=== PATIENT | male | born 1950 | race Caucasian/White ===

== ENCOUNTER 2020-11-04 06:48 | Outpatient (CLI) | payer OTHER, SELFPAY ==
--- NOTE | 2020-11-04 07:15 | US_ITS ---
WS: [id number] RENAL ULTRASOUND HISTORY: HYDRONEPHROSIS COMPARISON: 05/04/2019 TECHNIQUE: 2-D and color Doppler imaging of the kidney submitted. Right kidney: 11.1 cm x 4.0 cm x 5.0 cm. Kidney is normal size but there is marked increased echogenicity in the renal pelvis with poor cortic al medullary differentiation. No mass or obstruction. Marked thinning of the renal cortex to 8 mm. Left kidney: 12.5 cm x 4.7 cm x 5.9 cm. Normal size kidney with increased echogenicity. No hydronephrosis or mass. Mild diffuse thinning of t he renal cortex to 9.5 mm. Aorta: Mild atherosclerosis aorta. Urinary Bladder: Normal distention. US/US renal BI* [id number] IMPRESSION: 1. Severe RIGHT chronic medical renal disease with marked cortical atrophy. No obstruction. 2. Mild LEFT chronic medical medical renal disease with mild cortical atrophy. No obstruction.
== END 2020-11-04 06:49 | disposition home or self-care (01) ==
LOC: US 06:49
PROVIDERS: PCP Emergency Medicine Emergency Medical Services; Visit Provider Urology
DX: N13.30 Unspecified hydronephrosis (principal); N18.4 Chronic kidney disease, stage 4 (severe); N26.1 Atrophy of kidney (terminal)
CPT/HCPCS: 76770; 80048; 81003

== ENCOUNTER 2021-12-13 08:10 | Emergency (ER) | payer OTHER, SELFPAY ==
[2021-12-13 08:20] VITALS: BP 150/78; PULSE 64; RESP 18; TEMP 36.5; O2SAT 100; BMI 28.1
--- NOTE | 2021-12-13 08:24 | XRR_ITS ---
PROCEDURE INFORMATION: Exam: XR Left Hand Exam date and time: 12/13/2021 8:24 AM Age: 71 years old Clinical indication: Injury or trauma; Fall; Blunt trauma (contusions or hematomas); Left; Little finger; Additional info: 5ht finger pain, injury TECHNIQUE: Imaging protocol: XR Left hand. Views: 3 or more views. Total images: 3 COMPARISON: No relevant prior studies available. FINDINGS: Bones/joints: Posteriorly dislocated middle phalanx in relation to the proximal phalanx of the 5th digit. No fracture detected. No additional fracture, subluxation, or dislocation detected. Soft tissues: Normal. XR/XR hand LT min 3V* [id number] IMPRESSION: Posteriorly dislocated middle phalanx in relation to the proximal phalanx of the 5th digit.
[2021-12-13 08:34] VITALS: BP 150/78; PULSE 64; RESP 18; O2SAT 100
--- NOTE | 2021-12-13 08:34 | W.ED.EXTPRO ---
HPI - Extremity Problem General: Chief complaint: Extremity Injury, Upper Stated complaint: Possible broken finger, chin injury Time Seen by Provider: 12/13/21 08:18 History of Present Illness: Patient fell on ice this morning sustaining a laceration to his chin and injuring his left pinky finger. Patient denies any loss of consciousness neck pain headache or other injuries. Says he can move his finger but has swelling at the base. Associated symptoms: Deny chest pain, fever(s) or rash Review of Systems Const: Denies: fever(s), chills or body aches Eyes: Denies: eye discomfort ENMT: Denies: throat pain Card: Denies: chest pain Resp: Denies: dyspnea GI: Denies: abdominal pain, nausea or vomiting Musc: Reports: joint pain and joint swelling (Base of left pinky finger) Skin/Breast: Reports: other (Small irregular laceration base of chin from striking the ice today); Denies: rash Neuro: Denies: headache(s) Psych: Denies: depression or suicidal ideation PFS ED PFSH: Medical History (Updated 12/13/21 @ 08:48 by BERONICA Johnson) CKD (chronic kidney disease) Diabetes Gout H/O malignant neoplasm of skin FACE H/O pilonidal cyst Hyperuricemia Hypoglycemia Idiopathic hypersomnia Obstructive sleep apnea Osteoarthritis, multiple sites Retroperitoneal fibrosis Surgical History (Updated 11/04/20 @ 08:24 by Carlito Molina MD) H/O foot surgery BONE SPURS REMOVED BILATERAL FEET S/P appendectomy S/P cataract surgery S/p total knee replacement, bilateral Status post cholecystectomy Family History (Updated 11/04/20 @ 08:13 by Ashley San LPN) Mother , IN HER 70'S No problems noted. Father , AT AGE 92 No problems noted. Social History (Updated 11/04/20 @ 08:14 by Ashley San LPN) Smoking and tobacco status: never smoked Alcohol intake: never Marital status: Current occupational status: retired History of recent travel: No Physical Exam Const: COMMON NORMALS: no acute distress, patient oriented x3 and alert HENMT: COMMON NORMALS: normocephalic and external ears normal HEAD & SCALP: normocephalic EXTERNAL EAR: Yes external ears normal Eye: COMMON NORMALS: EOMs intact bilaterally Neck/C-Spine: COMMON NORMALS: no JVD Resp: COMMON NORMALS: normal respiratory effort and No use of accessory muscles Cardio: COMMON NORMALS: no JVD GI: INSPECTION: Yes normal to inspection Extremity: COMMON NORMALS: normal to inspection and full ROM NARRATIVE EXTREMITY EXAM: Swelling MIP joint left pinky. Patient has full range of motion of the finger Neuro: COMMON NORMALS: patient oriented x3 SENSORIUM/ORIENTATION: Yes alert Psych: COMMON NORMALS: mental status grossly normal Skin: COMMON NORMALS: no rashes or lesions noted GENERAL SKIN EXAM: no rashes or lesions noted OTHER: Laceration to chin approximately half inch long somewhat jagged nonbleeding Procedures Laceration Laceration 1: Site: face Size (cm): 1 Description: irregular and clean Depth: simple, single layer Skin layer closed with: other (Closed with skin adhesive) Orthopedic Joint Reduction Joint #1: Time Out Performed: Yes Side: left Joint Reduction Location: finger Analgesia: none Technique used: direct manipulation Post-reduction neuro exam: intact Post-reduction vascular: intact Post Reduction X-Ray Obtained: No Splint Applied: Yes (Costa tape) Course Vital Signs: Vital signs: Vital Signs Temperature 97.7 F 12/13/21 08:20 Pulse Rate 64 12/13/21 08:34 Respiratory Rate 18 12/13/21 08:34 Blood Pressure 150/78 12/13/21 08:34 Pulse Oximetry 100 12/13/21 08:34 MDM - Extremity (Nontraumatic) Medical Decision Making Laceration and mild dislocation of the left pinky finger. Laceration repaired with glue and left pinky finger MIP joint was reduced with direct manipulation without any difficulty with satisfactory alignment and full range of motion the finger with intact neuro. Discharge Plan Discharge Patient Disposition: Home Clinical Impression: Laceration Dislocation closed, finger Qualifiers: Encounter type: initial encounter Qualified Code(s): S63.259A - Unspecified dislocation of unspecified finger, initial encounter Condition: Stable Prescriptions: No Action allopurinol 100 mg tablet 100 mg PO BID 0RF cetirizine [All Day Allergy (cetirizine)] 10 mg tablet 5 mg PO DAILY PRN0RF chlorhexidine gluconate 0.12 % mouthwash 15 ml buccal DAILY 0RF chlorthalidone 25 mg tablet 25 mg PO DAILY 0RF cholecalciferol (vitamin D3) 50 mcg (2,000 unit) capsule 50 mcg PO DAILY 0RF clonidine HCl 0.3 mg tablet 0.3 mg PO TID 0RF ferrous sulfate 325 mg (65 mg iron) tablet 325 mg PO DAILY 0RF latanoprost (PF) 0.005 % drops 1 drp ophthalmic (eye) DAILY 0RF losartan 100 mg tablet 100 mg PO DAILY 0RF montelukast 10 mg tablet 10 mg PO DAILY 0RF mupirocin 2 % ointment 1 applic topical BID 0RF omeprazole 20 mg capsule,delayed release(DR/EC) 20 mg PO DAILY 0RF potassium chloride 20 mEq tablet extended release 20 meq PO DAILY 0RF pravastatin 20 mg tablet 20 mg PO .1/2 TAB DAILY 0RF triamcinolone acetonide 0.1 % cream 1 applic topical .PRN 0RF acetaminophen 325 mg capsule 325 mg PO QID 0RF phenazopyridine 100 mg tablet 100 mg PO TID PRN0RF amlodipine 5 mg tablet 5 mg PO BID 0RF aspirin 81 mg tablet,delayed release (DR/EC) 81 mg PO DAILY 0RF atenolol 100 mg tablet 100 mg PO .1/2 TAB DAILY 0RF docusate sodium 100 mg capsule 100 mg PO TID 0RF omega-3 fatty acids [Fish Oil Concentrate] 1,000 mg capsule 1,000 mg PO BID 0RF fluticasone propionate [Allergy Relief (fluticasone)] 50 mcg/actuation spray,suspension 2 spray intranasal DAILY 0RF Rx Instructions: administer into each nostril folic acid 1 mg tablet 1 mg PO DAILY 0RF guaifenesin 400 mg tablet 400 mg PO Q4H PRN0RF insulin glargine 100 unit/mL (3 mL) insulin pen 36 unit SUBCUT .HS 0RF sennosides [Evac-U-Gen (sennosides)] 8.6 mg tablet 8.6 mg PO BID 0RF spironolactone 25 mg tablet 25 mg PO DAILY 0RF Discharge Orders: Discharge ED (Routine); Ordered 12/13/21 Ordered By: Mainor Aaron Referrals: Haris Parsons DO [Primary Care Provider] - Discharge Diet: Usual diet Discharge Activity: Increase activity as tolerated Patient Instructions: Skin Adhesive Care (ED), Finger Dislocation (ED) Activity Restrictions/Additional Instructions: Follow instructions given today. If finger becomes more swollen or feels like it is came back out of place please return here or follow-up your primary care provider. 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
[2021-12-13] MEDS: tetanus-dipt-pertussis 0.5 mL SDV IM (08:41)
[2021-12-13 08:59] VITALS: BP 115/70; PULSE 57; RESP 13; O2SAT 96
== END 2021-12-13 09:00 | disposition home or self-care (01) ==
PROVIDERS: Emergency Provider Nurse Practitioner Family; PCP Emergency Medicine Emergency Medical Services
DX: S01.81XA Laceration without foreign body of other part of head, initial encounter (principal); S63.287A Dislocation of proximal interphalangeal joint of left little finger, initial encounter; W00.0XXA Fall on same level due to ice and snow, initial encounter; Z79.82 Long term (current) use of aspirin; Z79.4 Long term (current) use of insulin; E11.9 Type 2 diabetes mellitus without complications; Z23 Encounter for immunization
CPT/HCPCS: 12011; 26770; 73130; 90471; 90715; 99283

== ENCOUNTER 2021-12-29 08:33 | Emergency (ER) | payer OTHER, MEDICARE, SELFPAY ==
[2021-12-29 08:50] VITALS: BP 112/74; PULSE 62; RESP 14; TEMP 36.4; O2SAT 97; BMI 28.1
--- NOTE | 2021-12-29 10:13 | W.ED.WEAKNES ---
HPI - Weakness General: Chief complaint: Weakness Stated complaint: weakness, not feeling good Time Seen by Provider: 12/29/21 09:39 Source: patient Mode of arrival: ambulatory Limitations: no limitations History of Present Illness: 71-year-old male presents to the emergency room complaining of weakness. He has no specific complaint no chest pain no abdominal pain no extremity pain no palpitations or arrhythmias. Patient has some chronic kidney disease underlying usually sees Dr. Olmstead he recently had lab work done was told he was hyperkalemic and was concerned that his potassium is up again as well as have repeat labs next week wanted to have it done sooner. He went to the [facility] to get evaluated but they would not do his labs early so he came here to have lab work done he has no other focal or specific symptoms. MD Complaint: generalized weakness Onset (ago): day(s) Duration: intermittent Location: generalized Migration: none Severity: mild Relieving factors: none Exacerbating factors: none Associated symptoms: Denies chest pain, chills, confusion, melena, decreased appetite, diaphoresis, dysuria, easy bruising, fever(s), headache(s), myalgias, nausea, rash, short of breath, syncope or vomiting Review of Systems Const: Denies: fever(s), chills or diaphoresis Eyes: Denies: change in vision or blurry vision ENMT: Denies: throat pain, oral sores, dental pain, nasal discharge or nasal congestion Card: Denies: chest pain or syncope Resp: Denies: dyspnea, productive cough, non-productive cough or wheezing GI: Denies: nausea, vomiting or melena : Denies: dysuria Musc: Denies: neck pain, back pain, extremity pain, extremity swelling, joint pain or joint swelling Skin/Breast: Denies: rash, pruritus or erythema Neuro: Denies: headache(s) or confusion Psych: Denies: anxiety, depression, loss of interest, visual hallucinations, auditory hallucinations, suicidal ideation or homicidal ideation Endo: Denies: polyuria, polydipsia, tired all the time or cold intolerance [place]/Lymph: Denies: easy bruising PFS ED PFSH: Medical History CKD (chronic kidney disease) Diabetes Gout H/O malignant neoplasm of skin FACE H/O pilonidal cyst Hyperuricemia Hypoglycemia Idiopathic hypersomnia Obstructive sleep apnea Osteoarthritis, multiple sites Retroperitoneal fibrosis Surgical History H/O foot surgery BONE SPURS REMOVED BILATERAL FEET S/P appendectomy S/P cataract surgery S/p total knee replacement, bilateral Status post cholecystectomy Family History Mother , IN HER 70'S No problems noted. Father , AT AGE 92 No problems noted. Social History Smoking and tobacco status: never smoked Alcohol intake: never Marital status: Current occupational status: retired History of recent travel: No Physical Exam Const: GENERAL APPEARANCE: cooperative and comfortable ORIENTATION/CONSCIOUSNESS: Yes awake, Yes oriented to person, Yes oriented to place and Yes oriented to time HENMT: COMMON NORMALS: normocephalic, atraumatic and hearing grossly normal bilaterally HEAD & SCALP: normocephalic and atraumatic Neck/C-Spine: COMMON NORMALS: full ROM, no lymphadenopathy, supple and no JVD Lymph: LYMPHATIC: no lymphadenopathy noted and no lymphedema noted Resp: COMMON NORMALS: normal respiratory effort, No retractions, No use of accessory muscles and clear to auscultation bilaterally AUSCULTATION: clear to auscultation bilaterally Cardio: COMMON NORMALS: no JVD, regular rate, regular rhythm and No murmurs present (Cardio) RATE: regular rate RHYTHM: regular rhythm GI: COMMON NORMALS: Soft to palpation and No hepatosplenomegaly present AUSCULTATION: Yes normoactive bowel sounds PALPATION: Yes Soft to palpation, No Tenderness to palpation present (GI), No Guarding due to palpation present (GI) and Yes No hepatosplenomegaly present Extremity: COMMON NORMALS: normal to inspection, capillary refill normal, no clubbing, cyanosis or edema, no calf tenderness and no pedal edema Neuro: SENSORIUM/ORIENTATION: Yes oriented to person, Yes oriented to place and Yes oriented to time Skin: COMMON NORMALS: no rashes or lesions noted GENERAL SKIN EXAM: no rashes or lesions noted Course Vital Signs: Vital signs: Vital Signs Temperature 97.5 F L 12/29/21 08:50 Pulse Rate 62 03/28/22 08:50 Respiratory Rate 14 12/29/21 08:50 Blood Pressure 112/74 12/29/21 08:50 Pulse Oximetry 97 12/29/21 08:50 MDM - Weakness Medical Decision Making Potassium is returned to 5. He has no other symptoms at this time. He has chronic hyponatremia. He also has chronic kidney disease which was known. 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 Medical Records I reviewed the patient's medical records. Lab Data : 12/29/21 11:09 12/29/21 11:09 Laboratory Results WBC 13.4 10^3/uL (4.0-10.0) H 12/29/21 11:09 RBC 5.04 10^6/uL (4.1-5.3) 12/29/21 11:09 Hgb 14.5 g/dL (11.7-16.6) 12/29/21 11:09 Hct 40.0 % (42.0-52.0) L 12/29/21 11:09 MCV 79.4 fl (80-94) L 12/29/21 11:09 MCH 28.8 pg (28.0-34.0) 12/29/21 11:09 MCHC 36.3 g/dL (30.0-36.0) H 12/29/21 11:09 RDW 13.3 % (12.1-15.1) 12/29/21 11:09 Plt Count 246 10^3/cmm (130-400) 12/29/21 11:09 MPV 9.7 fL (7.4-10.4) 12/29/21 11:09 Neut % (Auto) 77.6 % 12/29/21 11:09 Lymph % (Auto) 9.4 % 12/29/21 11:09 [place] % (Auto) 7.7 % 12/29/21 11:09 Eos % (Auto) 0.4 % 12/29/21 11:09 Baso % (Auto) 0.4 % 12/29/21 11:09 Neut # (Auto) 10.36 10^3/uL (1.8-7.7) H 12/29/21 11:09 Lymph # (Auto) 1.3 10^3/uL (0.8-4.8) 12/29/21 11:09 [place] # (Auto) 1.0 10^3/uL (0.2-0.9) H 12/29/21 11:09 Eos # (Auto) 0.1 10^3/uL (0.0-0.8) 12/29/21 11:09 Baso # (Auto) 0.1 10^3/uL (0.0-0.1) 12/29/21 11:09 Nucleated RBC % (auto) 0 % 12/29/21 11:09 Nucleated RBCs # 0.0 /100WBC 12/29/21 11:09 Sodium 121 mmol/L (136-145) L 12/29/21 11:09 Potassium 5.0 mmol/L (3.5-5.1) 12/29/21 11:09 Chloride 84 mmol/L (98-107) L 12/29/21 11:09 Carbon Dioxide 20 mmol/L (22-29) L 12/29/21 11:09 Anion Gap 22.0 (5-19) H 12/29/21 11:09 BUN 55 mg/dL (8-23) H 12/29/21 11:09 Creatinine 2.8 mg/dL (0.7-1.2) H 12/29/21 11:09 GFR Calculation Not Reportable 12/29/21 11:09 Glucose 133 mg/dL (65-115) H 12/29/21 11:09 Calculated Osmolality 269 mOsm/kg (285-295) L 12/29/21 11:09 Calcium 10.4 mg/dL (8.5-10.5) 12/29/21 11:09 Discharge Plan Discharge Patient Disposition: Home Clinical Impression: CKD (chronic kidney disease), Hx of hyperkalemia Condition: Stable Prescriptions: No Action allopurinol 100 mg tablet 100 mg PO BID 0RF cetirizine [All Day Allergy (cetirizine)] 10 mg tablet 5 mg PO DAILY PRN0RF chlorhexidine gluconate 0.12 % mouthwash 15 ml buccal DAILY 0RF chlorthalidone 25 mg tablet 25 mg PO DAILY 0RF cholecalciferol (vitamin D3) 50 mcg (2,000 unit) capsule 50 mcg PO DAILY 0RF clonidine HCl 0.3 mg tablet 0.3 mg PO TID 0RF ferrous sulfate 325 mg (65 mg iron) tablet 325 mg PO DAILY 0RF latanoprost (PF) 0.005 % drops 1 drp ophthalmic (eye) DAILY 0RF losartan 100 mg tablet 100 mg PO DAILY 0RF montelukast 10 mg tablet 10 mg PO DAILY 0RF mupirocin 2 % ointment 1 applic topical BID 0RF omeprazole 20 mg capsule,delayed release(DR/EC) 20 mg PO DAILY 0RF potassium chloride 20 mEq tablet extended release 20 meq PO DAILY 0RF pravastatin 20 mg tablet 20 mg PO .1/2 TAB DAILY 0RF triamcinolone acetonide 0.1 % cream 1 applic topical .PRN 0RF acetaminophen 325 mg capsule 325 mg PO QID 0RF phenazopyridine 100 mg tablet 100 mg PO TID PRN0RF amlodipine 5 mg tablet 5 mg PO BID 0RF aspirin 81 mg tablet,delayed release (DR/EC) 81 mg PO DAILY 0RF atenolol 100 mg tablet 100 mg PO .1/2 TAB DAILY 0RF docusate sodium 100 mg capsule 100 mg PO TID 0RF omega-3 fatty acids [Fish Oil Concentrate] 1,000 mg capsule 1,000 mg PO BID 0RF fluticasone propionate [Allergy Relief (fluticasone)] 50 mcg/actuation spray,suspension 2 spray intranasal DAILY 0RF Rx Instructions: administer into each nostril folic acid 1 mg tablet 1 mg PO DAILY 0RF guaifenesin 400 mg tablet 400 mg PO Q4H PRN0RF insulin glargine 100 unit/mL (3 mL) insulin pen 36 unit SUBCUT .HS 0RF sennosides [Evac-U-Gen (sennosides)] 8.6 mg tablet 8.6 mg PO BID 0RF spironolactone 25 mg tablet 25 mg PO DAILY 0RF Discharge Orders: Discharge ED (Routine); Ordered 12/29/21 Ordered By: Yon Nunez Referrals: Haris Parsons DO [Primary Care Provider] - Discharge Diet: Usual diet Discharge Activity: Resume usual activity Patient Instructions: Opioid Safety Activity Restrictions/Additional Instructions: Follow-up with your hose tubing backer as previously scheduled Coding Level of Care Code ED 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
[2021-12-29 11:19] LABS: Basophils # 0.1 10^3/uL (0.0-0.1); Basophils % 0.4 %; Eosinophils # 0.1 10^3/uL (0.0-0.8); Eosinophils % 0.4 %; Hemoglobin 14.5 g/dL (11.7-16.6); Lymphocytes # 1.3 10^3/uL (0.8-4.8); Lymphocytes % 9.4 %; Mean Corpuscular HGB Conc 36.3 g/dL (30.0-36.0); Mean Corpuscular Hemoglobin 28.8 pg (28.0-34.0); Mean Corpuscular Volume 79.4 fl (80-94); Mean Platelet Volume 9.7 fL (7.4-10.4); Monocytes % 7.7 %; Neutrophils # 10.36 10^3/uL (1.8-7.7); Neutrophils % 77.6 %; Nucleated Red Blood Cells % 0 %; Platelet Count 246 10^3/cmm (130-400); Red Blood Count 5.04 10^6/uL (4.1-5.3); Red Cell Distribution Width 13.3 % (12.1-15.1); White Blood Count 13.4 10^3/uL (4.0-10.0)
[2021-12-29 11:44] LABS: Blood Urea Nitrogen 55 mg/dL (8-23); Calcium 10.4 mg/dL (8.5-10.5); Carbon Dioxide 20 mmol/L (22-29); Chloride 84 mmol/L (98-107); Glucose 133 mg/dL (65-115); Osmolality Calculated 269 mOsm/kg (285-295); Sodium 121 mmol/L (136-145)
[2021-12-29] MEDS: sodium chloride 0.9% 1,000 ML 999 ML IV (12:20)
== END 2021-12-29 14:15 | disposition home or self-care (01) ==
PROVIDERS: Emergency Provider Family Medicine; PCP Emergency Medicine Emergency Medical Services
DX: E11.22 Type 2 diabetes mellitus with diabetic chronic kidney disease (principal); N18.9 Chronic kidney disease, unspecified; E87.1 Hypo-osmolality and hyponatremia; Z79.82 Long term (current) use of aspirin; Z79.4 Long term (current) use of insulin
CPT/HCPCS: 80048; 85025; 96360; 99283; J7030

== ENCOUNTER 2022-03-27 06:00 | Outpatient (RCR) | payer OTHER, SELFPAY | END 2022-04-02 23:59 | disposition home or self-care (01) | LOC: SPT 06:00 | PROVIDERS: PCP Emergency Medicine Emergency Medical Services; Referring Provider Emergency Medicine Emergency Medical Services; Visit Provider Emergency Medicine Emergency Medical Services | DX: M25.562 Pain in left knee (principal) | CPT/HCPCS: 97161 ==

== ENCOUNTER → 2022-04-08 13:06 | Outpatient (BNVA) | payer OTHER, SELFPAY | PROVIDERS: PCP Emergency Medicine Emergency Medical Services; Visit Provider Nurse Practitioner Family | DX: N40.1 Benign prostatic hyperplasia with lower urinary tract symptoms (principal); R31.0 Gross hematuria | CPT/HCPCS: 99213 ==

== ENCOUNTER → 2022-04-09 09:01 | Outpatient (BNVA) | payer OTHER, SELFPAY | PROVIDERS: PCP Emergency Medicine Emergency Medical Services; Visit Provider Nurse Practitioner Family | DX: R31.0 Gross hematuria (principal) | CPT/HCPCS: 87077; 87086; 87186 ==

== ENCOUNTER → 2022-04-15 10:01 | Outpatient (BNVA) | payer OTHER, SELFPAY | PROVIDERS: PCP Emergency Medicine Emergency Medical Services; Visit Provider Nurse Practitioner Family | DX: Z53.9 Procedure and treatment not carried out, unspecified reason (principal) ==

== ENCOUNTER 2022-04-15 16:24 | Inpatient (IN) | payer OTHER, MEDICARE, SELFPAY ==
[2022-04-15 17:11] VITALS: BP 138/85; PULSE 73; RESP 16; TEMP 36.9; O2SAT 98
[2022-04-15 19:18] LABS: Basophils % 0.4 %; Eosinophils # 0.1 10^3/uL (0.0-0.8); Eosinophils % 1.2 %; Hematocrit 40.7 % (42.0-52.0); Hemoglobin 15.5 g/dL (11.7-16.6); Lymphocytes % 9.5 %; Mean Corpuscular HGB Conc 38.1 g/dL (30.0-36.0); Mean Corpuscular Hemoglobin 28.3 pg (28.0-34.0); Mean Corpuscular Volume 74.4 fl (80-94); Mean Platelet Volume 9.9 fL (7.4-10.4); Monocytes # 1.1 10^3/uL (0.2-0.9); Monocytes % 9.8 %; Neutrophils # 8.42 10^3/uL (1.8-7.7); Neutrophils % 77.1 %; Nucleated Red Blood Cells % 0 %; Platelet Count 206 10^3/cmm (130-400); Red Blood Count 5.47 10^6/uL (4.1-5.3); Red Cell Distribution Width 12.6 % (12.1-15.1); White Blood Count 10.9 10^3/uL (4.0-10.0)
[2022-04-15 19:19] LABS: Alanine Aminotransferase 15 U/L (0-41); Albumin Level 4.6 g/dL (3.5-5.2); Alkaline Phosphatase 116 IU/L (40-130); Anion Gap 20.1 (5-19); Aspartate Amino Transferase 16 U/L (0-40); Blood Urea Nitrogen 27 mg/dL (8-23); Carbon Dioxide 22 mmol/L (22-29); Chloride 76 mmol/L (98-107); Globulin 3.2 g/dL (1.3-4.6); Glucose 180 mg/dL (65-115); Osmolality Calculated 248 mOsm/kg (285-295); Potassium 4.1 mmol/L (3.5-5.1); Total Bilirubin 0.7 mg/dL (0.15-1.2); Total Protein 7.8 g/dL (6.6-8.7)
[2022-04-15 19:24] LABS: Sodium 114 mmol/L (136-145)
--- NOTE | 2022-04-15 20:41 | ECG_ITS ---
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 Measurements Intervals [place] Rate: 68 P: 197 CA: 144 QRS: -15 QRSD: 108 T: 24 QT: 396 QTc: 422 Interpretive Statements ECTOPIC ATRIAL RHYTHM MODERATE VOLTAGE CRITERIA FOR LVH, CONSIDER NORMAL VARIANT [MEETS CRITERIA IN ONE OF: R(aVL), S(V1), R(V5), R(V5/V6)+S(V1)] ABNORMAL RHYTHM ECG Compared to ECG 03/08/2019 22:36:48 Ectopic atrial rhythm now present Sinus rhythm no longer present First degree AV block no longer present Electronically Signed On 04-15-2022 23:43:25 CDT by Mark Colmenares M.D. [id number]
--- NOTE | 2022-04-15 20:41 | XRR_ITS ---
PROCEDURE INFORMATION: Exam: XR Chest Exam date and time: 04/15/2022 8:48 PM Age: 71 years old Clinical indication: Other: Weak; Additional info: Pavel TECHNIQUE: Imaging protocol: Radiologic exam of the chest. Views: 1 view. COMPARISON: CT chest con [id number] 04/07/2017 7:53 AM FINDINGS: Lungs: See Heart/Mediastinum finding. Slightly elevated right hemidiaphragm, unchanged. Pleural spaces: Unremarkable. No pleural effusion. No pneumothorax. Heart/Mediastinum: Slightly increased superior paratracheal density bilaterally. Previous chest CT casing inspector image demonstrates similar finding with posterior medial/paraspinal pulmonary consolidations. These findings are difficult to visualized on the frontal view radiograph. Reassessment by chest CT is recommended. Diaphragm: Slightly elevated right diaphragm. Bones/joints: No acute findings. XR/XR chest 1V portable [id number] IMPRESSION: Bilateral paratracheal densities. See discussion above. Chest CT correlation is suggested.
--- NOTE | 2022-04-15 20:46 | W.ED.GENADLT ---
HPI - General Adult General: Chief complaint: General Medical Stated complaint: [facility] Time Seen by Provider: 04/15/22 20:39 Source: patient Mode of arrival: ambulatory Limitations: no limitations History of Present Illness: 71-year-old male states has been having some generalized weakness over the last week. He states that he was seen by his PCP today and had a sodium level of 114. Patient denies any vomiting or diarrhea denies any cough denies any known history of cancer denies any fevers. Associated symptoms: Deny chest pain, dyspnea, headache(s), nausea, rash or vomiting Review of Systems Const: Denies: fever(s), chills, body aches or change in appetite Eyes: Denies: blurry vision or eye discomfort ENMT: Denies: throat pain or dental pain Card: Denies: chest pain Resp: Denies: dyspnea GI: Denies: abdominal pain, nausea, vomiting or diarrhea : Denies: dysuria Musc: Denies: neck pain or back pain Skin/Breast: Denies: rash Neuro: Denies: headache(s) Psych: Denies: depression Jose Maria/Lymph: Denies: easy bruising All/Imm: Denies: urticaria PFSH ED PFSH: Medical History BPH loc w urin obs/LUTS CKD (chronic kidney disease) Diabetes Gout Gross hematuria H/O malignant neoplasm of skin FACE H/O pilonidal cyst Hyperuricemia Hypoglycemia Idiopathic hypersomnia Obstructive sleep apnea Osteoarthritis, multiple sites Retroperitoneal fibrosis Surgical History H/O foot surgery BONE SPURS REMOVED BILATERAL FEET S/P appendectomy S/P cataract surgery S/p total knee replacement, bilateral Status post cholecystectomy Family History Mother , IN HER 70'S No problems noted. Father , AT AGE 92 No problems noted. Social History Smoking and tobacco status: never smoked Alcohol intake: never Marital status: Current occupational status: retired History of recent travel: No Physical Exam Const: COMMON NORMALS: no acute distress, patient oriented x3 and healthy appearing HENMT: COMMON NORMALS: normocephalic and atraumatic HEAD & SCALP: normocephalic and atraumatic Eye: COMMON NORMALS: Equal, round and reactive pupils present and EOMs intact bilaterally PUPIL: Yes Equal, round and reactive pupils present Neck/C-Spine: COMMON NORMALS: full ROM and supple Chest: COMMONS NORMALS: normal inspection of the chest and normal palpation of entire chest wall Resp: COMMON NORMALS: normal respiratory effort, No retractions, No use of accessory muscles and clear to auscultation bilaterally AUSCULTATION: clear to auscultation bilaterally Cardio: COMMON NORMALS: regular rate, regular rhythm and No murmurs present (Cardio) RATE: regular rate RHYTHM: regular rhythm GI: COMMON NORMALS: Normal to inspection, nondistended, normoactive bowel sounds present, Soft to palpation, non-tender and no masses PALPATION: Yes Soft to palpation Extremity: COMMON NORMALS: normal to inspection and full ROM Neuro: COMMON NORMALS: patient oriented x3, moves all extremities and no focal motor deficits Psych: COMMON NORMALS: mental status grossly normal, Normal thought process present and cooperative THOUGHT PROCESS: Normal thought process present Skin: COMMON NORMALS: no rashes or lesions noted and no wounds GENERAL SKIN EXAM: no rashes or lesions noted Course Vital Signs: Vital signs: Vital Signs Temperature 98.4 F 04/15/22 17:11 Pulse Rate 72 04/15/22 20:50 Respiratory Rate 16 04/15/22 20:50 Blood Pressure 165/103 04/15/22 20:50 Pulse Oximetry 98 04/15/22 20:[address] [facility] - General Adult Medical Decision Making Patient presents here with hyponatremia along with some weakness x-ray is concerning for a possible mass we will get a CT of his chest spoke to hospitalist who will admit at this time. Lab Data : 04/15/22 18:40 04/15/22 18:40 Radiology Impressions Chest X-Ray 04/15/22 20:41 IMPRESSION: Bilateral paratracheal densities. See discussion above. Chest CT correlation is suggested. Laboratory Results WBC 10.9 10^3/uL (4.0-10.0) H 04/15/22 18:40 RBC 5.47 10^6/uL (4.1-5.3) H 04/15/22 18:40 Hgb 15.5 g/dL (11.7-16.6) 04/15/22 18:40 Hct 40.7 % (42.0-52.0) L 04/15/22 18:40 MCV 74.4 fl (80-94) L 04/15/22 18:40 MCH 28.3 pg (28.0-34.0) 04/15/22 18:40 MCHC 38.1 g/dL (30.0-36.0) H 04/15/22 18:40 RDW 12.6 % (12.1-15.1) 04/15/22 18:40 Plt Count 206 10^3/cmm (130-400) 04/15/22 18:40 MPV 9.9 fL (7.4-10.4) 04/15/22 18:40 Neut % (Auto) 77.1 % 04/15/22 18:40 Lymph % (Auto) 9.5 % 04/15/22 18:40 [place] % (Auto) 9.8 % 04/15/22 18:40 Eos % (Auto) 1.2 % 04/15/22 18:40 Baso % (Auto) 0.4 % 04/15/22 18:40 Neut # (Auto) 8.42 10^3/uL (1.8-7.7) H 04/15/22 18:40 Lymph # (Auto) 1.0 10^3/uL (0.8-4.8) 04/15/22 18:40 [place] # (Auto) 1.1 10^3/uL (0.2-0.9) H 04/15/22 18:40 Eos # (Auto) 0.1 10^3/uL (0.0-0.8) 04/15/22 18:40 Baso # (Auto) 0.0 10^3/uL (0.0-0.1) 04/15/22 18:40 Nucleated RBC % (auto) 0 % 04/15/22 18:40 Nucleated RBCs # 0.0 /100WBC 04/15/22 18:40 Sodium 114 mmol/L (136-145) L* 04/15/22 18:40 Potassium 4.1 mmol/L (3.5-5.1) 04/15/22 18:40 Chloride 76 mmol/L (98-107) L 04/15/22 18:40 Carbon Dioxide 22 mmol/L (22-29) 04/15/22 18:40 Anion Gap 20.1 (5-19) H 04/15/22 18:40 BUN 27 mg/dL (8-23) H 04/15/22 18:40 Creatinine 1.6 mg/dL (0.7-1.2) H 04/15/22 18:40 GFR Calculation Not Reportable 04/15/22 18:40 Glucose 180 mg/dL (65-115) H 04/15/22 18:40 Calculated Osmolality 248 mOsm/kg (285-295) L 04/15/22 18:40 Calcium 10.0 mg/dL (8.5-10.5) 04/15/22 18:40 Total Bilirubin 0.7 mg/dL (0.15-1.2) 04/15/22 18:40 AST 16 U/L (0-40) 04/15/22 18:40 ALT 15 U/L (0-41) 04/15/22 18:40 Alkaline Phosphatase 116 IU/L (40-130) 04/15/22 18:40 Total Protein 7.8 g/dL (6.6-8.7) 04/15/22 18:40 Albumin 4.6 g/dL (3.5-5.2) 04/15/22 18:40 Globulin 3.2 g/dL (1.3-4.6) 04/15/22 18:40 Discharge Plan Discharge Patient Disposition: Admitted As Inpatient Clinical Impression: Hyponatremia, Weakness Condition: Stable Coding Level of Care Code ED Benefits Clerk for Chg Fwd Exam Comprehensive
[2022-04-15 20:50] VITALS: BP 165/103; PULSE 72; RESP 16; O2SAT 98
[2022-04-15] MEDS: sodium chloride 0.9% 1,000 ML 999 ML IV (20:52)
--- NOTE | 2022-04-15 21:17 | CTR_ITS ---
PROCEDURE INFORMATION: Exam: CT Chest Without Contrast; Diagnostic Exam date and time: 04/15/2022 9:32 PM Age: 71 years old Clinical indication: Abnormal findings; Abnormal radiologic exam of lung or chest; Patient HX: Gb; Additional info: Abnormal chest xray TECHNIQUE: Imaging protocol: Diagnostic computed tomography of the chest without contrast. Radiation optimization: All CT scans at this facility use at least one of these dose optimization techniques: automated exposure control; mA and/or kV adjustment per patient size (includes targeted exams where dose is matched to clinical indication); or iterative reconstruction. COMPARISON: CT chest con [id number] 04/07/2017 7:53 AM RADIATION DOSE METRICS: Total DLP (mGy-cm): 796.18 FINDINGS: Lungs: Interval improvement of left infrahilar patchy opacity/consolidation with some residual linear parenchymal scarring. Persistent consolidations and probable pleural thickening along the posteromedial aspect of the mid and lower thorax are noted with some interval improvement. No enlarged mediastinal/paratracheal adenopathy or other paratracheal mass. Pleural spaces: See Lungs finding. Heart: Normal heart size with coronary calcification. Lymph nodes: See Lungs finding. Vasculature: Unremarkable. No aortic aneurysm. Liver: No obvious hepatic cirrhosis. Well-defined hypodense lesion in the liver adjacent to falciform ligament measuring 17 mm, likely benign and unchanged. Gallbladder and bile ducts: Minimal pneumobilia. Cholecystectomy clips. Spleen: Calcified splenic granuloma. Kidneys and ureters: Severe right renal atrophy which has worsened since prior exam however the right moderate nephrosis has resolved. Correlation with previous renal imaging study should be obtained. Stomach and bowel: Colonic diverticulosis. Bones/joints: Multilevel vertebral disc degeneration and endplate osteophytes. No acute osseous findings otherwise. Soft tissues: There is a midline epigastric region ventral hernia with herniation of short segment of small bowel, new since prior exam. No regional bowel dilatation to suggest obstruction. High-density surgical sutures are also noted in the anterior bowel loop adjacent to the hernia. Discrete nodular soft tissue focus measuring 13 mm is again noted along the posterolateral right lower diaphragm, unchanged. CT/CT chest con [id number] IMPRESSION: 1. Comparison chest CT 04/07/2017. 2. Bilateral posterior medial consolidative changes and probable pleural thickening in the mid and lower thorax with some interval improvement since prior exam. These findings are very difficult to visualize by frontal view radiograph. Etiology is unclear but may be related to post radiation changes. The report for prior chest CT is not available. No other history was provided. Otherwise no acute lung consolidation or ground-glass opacity. No paratracheal adenopathy or other mediastinal masses. Continued follow-up imaging may be obtained if clinically indicated. 3. Colonic diverticulosis and right renal atrophy. See discussion above. 4. Bowel-containing midline epigastric ventral hernia, new since prior exam. No obvious signs of incarceration/obstruction.
[2022-04-15 21:51] LABS: Add Urine Microscopic? YES; Bilirubin Urine Neg (Negative); Blood Urine 2+ (Negative); Glucose Urine UA Norm (Normal); Ketones Urine Negative (Negative); Leukocyte Esterase Urine 2+ (Negative); Nitrate Urine Negative (Negative); Protein Urine 2+ (Negative); Urine Appearance SL Hazy (CLEAR); Urine Color Yellow (Yellow); Urobilinogen Urine Norm (Negative); pH Urine 5 (5-7)
[2022-04-15 21:52] LABS: Add Urine Culture? Yes; Bacteria Urine 4+ /hpf; RBC Urine 0-4 /hpf (0-2); Squamous Epithelial Cell Urine 0-4 /hpf (0-5); WBC Urine 40-55 /hpf (0-5)
--- NOTE | 2022-04-15 22:27 | PM.HP ---
Providers/Chief Complaint Admitting Physician: Alicia Mendoza MD Primary Care Provider: Haris Parsons DO Chief Complaint: [facility] History of Present Illness Jason Caro is a 71 year old male who presents to the emergency room today with chief complains of generalized fatigue and malaise. he [facility] priro to his nephrology appt and was told he has low NA and referred to the ER. labs notable for sodium of 114. UA is positive for leukocyte esterase, urine WBC and 4+ bacteria . Renal function remains at baseline.He has been experiencing inc urinary tract symptoms since January including frequency, nocturia, weak stream, intermittency, feeling of incomplete emptying, and urgency. He also experienced some gross hematuria for 2 to 3 days in January. Was started on levaquin 250mg po daily on 04/14 however has not yet taken the medication. He has completely eliminated added salt from his diet over the past few monts in view of his CKD. Denies excessive free water consumption. Denies any c/o headache, seizures or visual disturbances. denies any recent NVD. 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 he also has a h/o long standing mediastinal and retroperitoneal adenopathy with pleural based disease suspicious for malignancy by PET/CT. However biopsies from 2011 showed fibroadipose tissue with chronic inflammation and no evidence of malignancy. He had multiple biopsies of a right pleural-based mass by thoracoscopy in December 2014. Pathology showed dense fibrous tissue with no evidence of malignancy. The underlying cause for all of this remains undetermined. As yet there is no documented malignancy as of 2018. Review of Systems General: Reports: 10 or more systems reviewed and unremarkable except in HPI and below Const: Denies: fever(s), chills or body aches Eyes: Denies: change in vision, blurry vision or photophobia ENMT: Reports: hoarseness; Denies: throat pain, enlarged tonsils, odynophagia or nasal congestion Card: Denies: chest pain, palpitations, irregular heart rhythm, edema, swelling of feet/ankles, lightheadedness, pre-syncope, dyspnea on exertion or orthopnea Resp: Denies: dyspnea, productive cough, non-productive cough, wheezing, stridor, pain on inspiration, change in phlegm color, hemoptysis or chest congestion GI: Denies: abdominal pain, nausea, vomiting, hematemesis, coffee ground emesis, dysphagia, heartburn, diarrhea, constipation, GI cramping, change in stool character, hematochezia or melena : Denies: flank pain, dysuria, urinary frequency, urinary urgency, urinary hesitancy or hematuria Musc: Denies: neck pain, back pain, extremity pain, joint swelling, joint warmth or deformity Neuro: Denies: headache(s), numbness in extremities, weakness in extremities, sensory changes, difficulty walking, frequent falls, dizziness, vertigo, behavioral changes, Slurred speech present or seizure-like activity Psych: Denies: anxiety, depression, suicidal ideation or homicidal ideation Endo: Denies: polyuria, polydipsia, tired all the time, cold intolerance or hot flashes Jose Maria/Lymph: Denies: easy bruising or easy bleeding Medications/Allergies Home Medications Medication Instructions Recorded Confirmed Last Taken Type acetaminophen 325 mg capsule 325 mg PO QID 11/04/20 04/08/22 Unknown History allopurinol 100 mg tablet 100 mg PO BID 11/04/20 04/08/22 Unknown History amlodipine 5 mg tablet 5 mg PO BID 11/04/20 04/08/22 Unknown History aspirin 81 mg tablet,delayed 81 mg PO DAILY 11/04/20 04/08/22 Unknown History release atenolol 100 mg tablet 100 mg PO .1/2 TAB DAILY tab 11/04/20 04/08/22 Unknown History cetirizine 10 mg tablet (All Day 5 mg PO DAILY PRN 11/04/20 04/08/22 Unknown History Allergy (cetirizine)) chlorhexidine gluconate 0.12 % 15 ml BUCCAL DAILY 11/04/20 11/04/20 Unknown History mouthwash chlorthalidone 25 mg tablet 25 mg PO DAILY 11/04/20 04/08/22 Unknown History cholecalciferol (vitamin D3) 50 50 mcg PO DAILY 11/04/20 04/08/22 Unknown History mcg (2,000 unit) capsule clonidine HCl 0.3 mg tablet 0.3 mg PO TID 11/04/20 04/08/22 Unknown History docusate sodium 100 mg capsule 100 mg PO TID cap 11/04/20 04/08/22 Unknown History ferrous sulfate 325 mg (65 mg 325 mg PO DAILY 11/04/20 04/08/22 Unknown History iron) tablet fluticasone propionate 50 2 spray INTRANASAL DAILY 11/04/20 04/08/22 Unknown History mcg/actuation nasal spray,suspension (Allergy Relief (fluticasone)) folic acid 1 mg tablet 1 mg PO DAILY 11/04/20 04/08/22 Unknown History guaifenesin 400 mg tablet 400 mg PO Q4H PRN 11/04/20 04/08/22 Unknown History insulin glargine 100 unit/mL (3 36 unit SUBCUT .HS ml 11/04/20 04/08/22 Unknown History mL) subcutaneous pen latanoprost (PF) 0.005 % eye drops 1 drp OPHTHALMIC (EYE) DAILY 11/04/20 04/08/22 Unknown History losartan 100 mg tablet 100 mg PO DAILY 11/04/20 04/08/22 Unknown History montelukast 10 mg tablet 10 mg PO DAILY 11/04/20 04/08/22 Unknown History mupirocin 2 % topical ointment 1 applic TOPICAL BID 11/04/20 04/08/22 Unknown History omega-3 fatty acids 1,000 mg 1,000 mg PO BID 11/04/20 04/08/22 Unknown History capsule (Fish Oil Concentrate) omeprazole 20 mg capsule,delayed 20 mg PO DAILY 11/04/20 04/08/22 Unknown History release phenazopyridine 100 mg tablet 100 mg PO TID PRN 11/04/20 04/08/22 Unknown History potassium chloride 20 mEq 20 meq PO DAILY 11/04/20 04/08/22 Unknown History tablet,extended release pravastatin 20 mg tablet 20 mg PO .1/2 TAB DAILY tab 11/04/20 04/08/22 Unknown History sennosides 8.6 mg tablet 8.6 mg PO BID 11/04/20 04/08/22 Unknown History (Evac-U-Gen (sennosides)) spironolactone 25 mg tablet 25 mg PO DAILY 11/04/20 04/08/22 Unknown History triamcinolone acetonide 0.1 % 1 applic TOPICAL .PRN g 11/04/20 04/08/22 Unknown History topical cream famotidine 20 mg tablet 20 mg PO BID tab 04/08/22 04/08/22 Unknown History tamsulosin 0.4 mg capsule 0.4 mg PO BID #180 cap 04/08/22 04/08/22 Unknown Rx levofloxacin 250 mg tablet 250 mg PO DAILY #10 tab 04/14/22 04/14/22 Unknown Rx Allergies Allergy/AdvReac Type Severity Reaction Status Date / Time cephalexin Allergy Unknown Unknown Verified 04/15/22 17:15 PFSH Acute PFSH: Medical History (Updated 04/15/22 @ 23:03 by Alicia Mendoza MD) BPH loc w urin obs/LUTS Brain mass CKD (chronic kidney disease) Diabetes Gout Gross hematuria H/O malignant neoplasm of skin FACE H/O pilonidal cyst HTN (hypertension) Hyperuricemia Hypoglycemia Idiopathic hypersomnia Lung nodule Mediastinal mass Meningeal disorder Obstructive sleep apnea Osteoarthritis, multiple sites Retroperitoneal fibrosis Surgical History H/O foot surgery BONE SPURS REMOVED BILATERAL FEET S/P appendectomy S/P cataract surgery S/p total knee replacement, bilateral Status post cholecystectomy Family History Mother , IN HER 70'S No problems noted. Father , AT AGE 92 No problems noted. Social History Smoking and tobacco status: never smoked Alcohol intake: never Marital status: Current occupational status: retired History of recent travel: No Vitals/I&O/Wt Last Vital Signs Temp 98.4 F 04/15/22 17:11 Pulse 72 04/15/22 20:50 Resp 16 04/15/22 20:50 BP 165/103 04/15/22 20:50 Pulse Ox 98 04/15/22 20:50 Weight last 48 hrs Weight 81.647 kg Physical Exam Narrative: General: No acute distress, AO x3 HEENT: PERRLA, pupils bilaterally equal and reactive, pallors not present Chest: Normal vesicular breath sounds, no added sounds, equal good air entry bilaterally CVS: S1-S2 regular, no murmurs, no tachycardia, no gallops, no rubs Abdomen: Soft, nontender, ventral hernia+ Neuro: No focal deficits, no facial deformity, AO x3, power 5/5 in all limbs Extremities: no edema, clubbing or cyanosis Data : 04/15/22 18:40 04/15/22 18:40 Other Labs: Radiology Impressions Chest X-Ray 04/15/22 20:41 IMPRESSION: Bilateral paratracheal densities. See discussion above. Chest CT correlation is suggested. Chest CT 04/15/22 21:17 IMPRESSION: 1. Comparison chest CT 04/07/2017. 2. Bilateral posterior medial consolidative changes and probable pleural thickening in the mid and lower thorax with some interval improvement since prior exam. These findings are very difficult to visualize by frontal view radiograph. Etiology is unclear but may be related to post radiation changes. The report for prior chest CT is not available. No other history was provided. Otherwise no acute lung consolidation or ground-glass opacity. No paratracheal adenopathy or other mediastinal masses. Continued follow-up imaging may be obtained if clinically indicated. 3. Colonic diverticulosis and right renal atrophy. See discussion above. 4. Bowel-containing midline epigastric ventral hernia, new since prior exam. No obvious signs of incarceration/obstruction. Laboratory Results WBC 10.9 10^3/uL (4.0-10.0) H 04/15/22 18:40 RBC 5.47 10^6/uL (4.1-5.3) H 04/15/22 18:40 Hgb 15.5 g/dL (11.7-16.6) 04/15/22 18:40 Hct 40.7 % (42.0-52.0) L 04/15/22 18:40 MCV 74.4 fl (80-94) L 04/15/22 18:40 MCH 28.3 pg (28.0-34.0) 04/15/22 18:40 MCHC 38.1 g/dL (30.0-36.0) H 04/15/22 18:40 RDW 12.6 % (12.1-15.1) 04/15/22 18:40 Plt Count 206 10^3/cmm (130-400) 04/15/22 18:40 MPV 9.9 fL (7.4-10.4) 04/15/22 18:40 Neut % (Auto) 77.1 % 04/15/22 18:40 Lymph % (Auto) 9.5 % 04/15/22 18:40 [place] % (Auto) 9.8 % 04/15/22 18:40 Eos % (Auto) 1.2 % 04/15/22 18:40 Baso % (Auto) 0.4 % 04/15/22 18:40 Neut # (Auto) 8.42 10^3/uL (1.8-7.7) H 04/15/22 18:40 Lymph # (Auto) 1.0 10^3/uL (0.8-4.8) 04/15/22 18:40 [place] # (Auto) 1.1 10^3/uL (0.2-0.9) H 04/15/22 18:40 Eos # (Auto) 0.1 10^3/uL (0.0-0.8) 04/15/22 18:40 Baso # (Auto) 0.0 10^3/uL (0.0-0.1) 04/15/22 18:40 Nucleated RBC % (auto) 0 % 04/15/22 18:40 Nucleated RBCs # 0.0 /100WBC 04/15/22 18:40 Sodium 114 mmol/L (136-145) L* 04/15/22 18:40 Potassium 4.1 mmol/L (3.5-5.1) 04/15/22 18:40 Chloride 76 mmol/L (98-107) L 04/15/22 18:40 Carbon Dioxide 22 mmol/L (22-29) 04/15/22 18:40 Anion Gap 20.1 (5-19) H 04/15/22 18:40 BUN 27 mg/dL (8-23) H 04/15/22 18:40 Creatinine 1.6 mg/dL (0.7-1.2) H 04/15/22 18:40 GFR Calculation Not Reportable 04/15/22 18:40 Glucose 180 mg/dL (65-115) H 04/15/22 18:40 Calculated Osmolality 248 mOsm/kg (285-295) L 04/15/22 18:40 Calcium 10.0 mg/dL (8.5-10.5) 04/15/22 18:40 Total Bilirubin 0.7 mg/dL (0.15-1.2) 04/15/22 18:40 AST 16 U/L (0-40) 04/15/22 18:40 ALT 15 U/L (0-41) 04/15/22 18:40 Alkaline Phosphatase 116 IU/L (40-130) 04/15/22 18:40 Total Protein 7.8 g/dL (6.6-8.7) 04/15/22 18:40 Albumin 4.6 g/dL (3.5-5.2) 04/15/22 18:40 Globulin 3.2 g/dL (1.3-4.6) 04/15/22 18:40 Urine Color Yellow (Yellow) 04/15/22 21:16 Urine Appearance Sl hazy (CLEAR) 04/15/22 21:16 Urine pH 5 (5-7) 04/15/22 21:16 Ur Specific [place] 1.010 (1.005-1.030) 04/15/22 21:16 Urine Protein 2+ (Negative) H 04/15/22 21:16 Urine Glucose (UA) Norm (Normal) 04/15/22 21:16 Urine Ketones Negative (Negative) 04/15/22 21:16 Urine Blood 2+ (Negative) H 04/15/22 21:16 Urine Nitrate Negative (Negative) 04/15/22 21:16 Urine Bilirubin Neg (Negative) 04/15/22 21:16 Urine Urobilinogen Norm mg/dL (Negative) 04/15/22 21:16 Ur Leukocyte Esterase 2+ (Negative) H 04/15/22 21:16 Urine RBC 0-4 /hpf (0-2) H 04/15/22 21:16 Urine WBC 40-55 /hpf (0-5) H 04/15/22 21:16 Ur Squamous Epith Cells 0-4 /hpf (0-5) H 04/15/22 21:16 Amorphous Sediment Not Reportable 04/15/22 21:16 Urine Bacteria 4+ /hpf (NONE) H 04/15/22 21:16 A&P Assessment and plan (1) UTI (urinary tract infection): Patient with past medical history of retroperitoneal fibrosis with resultant right hydronephrosis and atrophic right kidney status post peritonealization of ureters in 2019 presents with worsening symptoms of dysuria, increased frequency and hesitancy dating back to at least January of this year. His symptoms appear to be more related to bladder outlet obstruction, however given his past medical history cannot rule out a more ascending infection and complicated UTI. Will obtain renal imaging today to help evaluate for any hydronephrosis or obstructive ureteral process. Urine culture growing Klebsiella pneumonia from 04/08, he has only had 1 day of levofloxacin thus far. Start ceftriaxone 1 g IV every 24 hours, prefer to treat him with IV given significant past history as above Status: Acute (2) Hyponatremia: Unclear etiology at this point. Appears to be chronic, Na from 12/2021 at 121. Differentials include SIADH, inadequate dietary intake Check urine lytes, urine creat He has a h/o long standing mediastinal LAD and pleural based mass which has yielded benign biopsy results in the past. Ct chest today shows pleural thickening in the mid and lower thorax with some interval improvement since prior exam. No paratracheal adenopathy or other mediastinal masses. MRI brain from 2014 had shown a Enlarged, enhancing pituitary infundibulum with broad differential of neurosarcoidosis, eosinophilic granuloma, sequelae of meningitis, THERMAL TECHNICIAN lymphoma, 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 Will obtain CT head today to evaluate for any interval change. Stop chlorthalidone as may be associated with hyponatremia. Status: Acute (3) BPH loc w urin obs/LUTS: Status: Acute Attestations Medical Necessity Statement*: Anticipate greater than 2 midnight admission for evaluation and management of hyponatremia, IV antibiotics for UTI. Coding Level of Care Code Acute Marketing Analytics Manager for [facility] Diagnoses BPH loc w urin obs/LUTS N40.1 UTI (urinary tract infection) N39.0 Hyponatremia E87.1
[2022-04-15 22:55] VITALS: BP 144/70; PULSE 62; PULSE 66; RESP 16; O2SAT 98
[2022-04-15 23:42] LABS: Potassium, Radom Urine 13 mmol/L; Urine Random Chloride 24 mmol/L; Urine Random Sodium 33 mmol/L
[2022-04-16] VITALS (9 sets, daily range): BP systolic 128–149; BP diastolic 63–80; PULSE 58–81; RESP 12–18; TEMP 36.5–36.7; O2SAT 94–98; BMI 28.1
[2022-04-16 00:48] LABS: Chol HDL Ratio 3.65 mg/dL (1.0-5.00); Cholesterol 197 mg/dL (0-200); HDL Cholesterol 54 mg/dL (60-100); LDL Cholesterol Calculated 103 mg/dL (50-129); LDL HDL Ratio 1.91 RATIO (0.00-3.22); Triglycerides 199 mg/dL (0-150)
[2022-04-16 00:56] LABS: HIV 1 & 2 Antibody Non-Reactive (Non-Reactiv); HIV 1 & 2 Antigen Non-Reactive (Non-Reactiv)
[2022-04-16 00:57] LABS: Cortisol Random 13.78 ug/dL (2.47-19.5); Rapid Plasma Reagin Syphilis Nonreactive (Nonreactive)
--- NOTE | 2022-04-16 01:08 | CT_ITS ---
WS: [id number] CT ABDOMEN AND PELVIS NONCONTRAST HISTORY: Possible hydronephrosis. History of retroperitoneal fibrosis. TECHNIQUE: Imaging performed through the abdomen and pelvis. Coronal and sagittal reformats are submi tted. All CT scans at [facility] use at least one of these dose optimization techniques: auto mated exposure control; mA and/or kV adjustment per patient size (includes targeted exams where dose is matched to clinical indication); or iterative reconstruction. DLP: 1213.94 mGy.cm COMPARISON: 04/15/2018 Lower thorax: Pulmonary hyperexpansion at the lung bases. Bilateral posterior pleural and retrocrural thickening is symmetric bilaterally and similar to the prior examinations but to be related to retro peritoneal fibrosis. There is partial encasement of the distal aorta. Heart size is normal. Liver: Normal size liver. Very mild increased density throughout the liver. There is pneumobilia in t he RIGHT hepatic cyst measuring 2.6 x 2.1 cm. No bile duct dilatation. Gallbladder: Prior cholecystectomy. Pancreas: Poorly visualized pancreas. Fatty replacement and atrophy. Spleen: Normal. Adrenal glands: Normal. No mass. Right kidney: Severe atrophy with no obstruction. Comment no change. Left kidney: Mild atrophy with mild perinephric stranding. No hydronephrosis. The LEFT ureter is not dilated. Aorta: Mild atherosclerosis abdominal aorta with no aneurysm. No free fluid. Small retroperitoneal lymph nodes have been previously seen without increase in size. Very mild and stable increased soft tissue thickening surrounding the abdominal aorta and the IVC. Th e extent is difficult to determine without IV contrast but it does appear very similar to prior studi es dating back to 12/29/2017. GI tract: Stomach is markedly distended with food products of. No small bowel obstruction. Soft tissu e mass just beneath the anterior abdominal wall at the site of the umbilicus. There is a suture line present. This is probably all clustered GI tract which is herniating through an abdominal wall defect . No obstruction. Diffuse constipation throughout the colon. Numerous diverticula throughout the colo n. No evidence for acute diverticulitis. No evidence for appendicitis. Abdominal wall: Umbilical hernia contains a loop of small bowel with no obstruction. Soft tissue infl ammatory change or stranding and air in the LEFT lateral subcutaneous soft tissues is probably an inj ection site. Pelvis: Marked distention of the urinary bladder. Urinary bladder does contain air. There is very mil d bladder wall thickening. Osseous structures: Advanced lumbar spondylosis. Mixed sclerotic and lytic changes within several of the vertebral bodies most significant at L1, L2 and L3 has progressed since the prior study. Probably due to degenerative changes and small Schmorl's nodes. CT/CT kidney stone [id number] IMPRESSION: 1. No hydronephrosis. 2. Severe atrophy RIGHT kidney with no hydronephrosis. 3. Mild atrophy of the LEFT kidney with no hydronephrosis. 4. Continued pleural and retrocrural thickening at the lung bases encasing the thoracic aorta with no change. 5. Mild soft tissue thickening surrounding the aorta and IVC similar to the pr ior studies probably due to retroperitoneal fibrosis. 6. There is a moderate amount of air in the urinary bladder. Correlate with re cent catheterization. If urinary bladder was not recently catheterized alternat hernán diagnosis such as colovesical fistula should be considered and excluded. r producing organism also is within the differential. 7. Extensive diverticulosis without acute diverticulitis. 8. Ventral abdominal wall hernia containing a loop of small bowel with no obst ruction. 9. Pneumobilia and prior cholecystectomy. 10. Stable hepatic cyst. 11. Advanced degenerative changes in the lumbar spine.
--- NOTE | 2022-04-16 01:08 | CTR_ITS ---
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 Radiation optimization: All CT scans at this facility use at least one of these dose optimization techniques: automated exposure control; mA and/or kV adjustment per patient size (includes targeted exams where dose is matched to clinical indication); or iterative reconstruction. COMPARISON: MR Head w wo Contrast 07/18/2015 10:08 AM RADIATION DOSE METRICS: Total DLP (mGy-cm): 961.38 FINDINGS: Brain: No hemorrhage, mass effect or midline shift. No acute, major vascular distribution infarction identified. There is foci of decreased attenuation in the periventricular and subcortical white matter, likely representing chronic small vessel ischemic changes. Mild cerebral volume loss is present. No intra-axial or extra-axial fluid collection seen. Cerebral ventricles: No ventriculomegaly. Paranasal sinuses: Visualized sinuses are unremarkable. No fluid levels. Mastoid air cells: Visualized mastoid air cells are well aerated. Bones/joints: Unremarkable. No acute fracture. Soft tissues: Unremarkable. CT/CT head wo con* [id number] IMPRESSION: No acute intracranial abnormality.
[2022-04-16] MEDS: cefTRIAXone 1,000 MG in sodium chloride 0.9% (plus) 50 ML 100 MG IV ×2 (01:37→23:15)
[2022-04-16] MEDS: enoxaparin 40 mg/0.4 mL Syringe SUBCUT ×2 (01:38→23:15)
[2022-04-16 05:29] LABS: Alanine Aminotransferase 13 U/L (0-41); Albumin Level 4.3 g/dL (3.5-5.2); Alkaline Phosphatase 108 IU/L (40-130); Anion Gap 17.2 (5-19); Aspartate Amino Transferase 15 U/L (0-40); Blood Urea Nitrogen 25 mg/dL (8-23); Calcium 9.6 mg/dL (8.5-10.5); Carbon Dioxide 25 mmol/L (22-29); Chloride 81 mmol/L (98-107); Glucose 121 mg/dL (65-115); Osmolality Calculated 254 mOsm/kg (285-295); Potassium 4.2 mmol/L (3.5-5.1); Thyroid Stimulating Hormone 3.57 uIU/mL (0.27-4.20); Total Bilirubin 0.5 mg/dL (0.15-1.2); Total Protein 7.3 g/dL (6.6-8.7)
[2022-04-16 05:31] LABS: Creatinine Clr Calc Pharmacy 45.5341
[2022-04-16 05:32] LABS: Sodium 119 mmol/L (136-145)
[2022-04-16 06:41] LABS: Glucose Point of Care 135 mg/dL (70-110)
[2022-04-16] MEDS: pantoprazole DR 40 mg Tablet PO (08:08)
[2022-04-16] MEDS: allopurinol 100 mg Tablet PO (08:09)
[2022-04-16] MEDS: atenolol 50 mg Tablet PO (08:09)
[2022-04-16] MEDS: aspirin 81 mg EC Tablet PO (08:09)
[2022-04-16] MEDS: amlodipine 5 mg Tablet PO ×2 (08:09→18:00)
--- NOTE | 2022-04-16 10:22 | PC.CHAP ---
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 [] Patient/Family/Request visit [] Outpatient visit [] Follow-up visit [] Physician referral [] Code/Alert [x] Routine visit [] Staff referral [] Actively dying [] Patient sleeping [] Family support [] [] Out of room [] Palliative care [] [x] Receiving care in room [] Pre-surgical visit [] Trauma [] Long length of stay [] ICU visit [] Other: Relational/Emotional Strength [x] Patient feels connected with others/family/visitors/staff [] Distress [] Loneliness/isolation [] Abandonment Spirituality of Patient [x] Person of Dipti [] Attends Protestant of their Dipti [x] Believes in Prayer [] Reads Bible or Hindu materials [] There are Spiritual issues to be addressed Blocklayer Interventions [x] Prayer [x] Active listening [x] Non-anxious presence [x] Spiritual/emotional support [] Crisis/trauma care [x] Spiritual counseling [] Bereavement support [] Provided bereavement packet [] Provided Bible/devotional materials [] Provided toy/stuffed animal, coloring book to patient or family member [] Provided Communion [] Anointing/[place] [] Salvation [x] Completed spiritual assessment [] Other: Impact on Illness or Injury [] Angry [] Fearful [x] Anxious [] Often cries [] Exhaustion [] Unable to work [] Unable to attend alevism [] Unable to walk/stand [] Unable to read [] Unable to drive [] Unable to eat/drink [] Unable to sleep [] Unable to be with family [] Patient intubated [] Other: Summary has a good atttitude not suer about tests waiting on doctor, well be [facility] home Time spent with patient 10 mins
[2022-04-16 11:42] LABS: Glucose Point of Care 158 mg/dL (70-110)
[2022-04-16] MEDS: insulin lispro 100 unit/1 mL SUBCUT ×2 (11:45→18:19)
[2022-04-16 17:44] LABS: Glucose Point of Care 162 mg/dL (70-110)
[2022-04-16 20:44] LABS: Urine Creatinine 47 mg/dL (39-259)
[2022-04-16 21:20] LABS: Glucose Point of Care 109 mg/dL (70-110)
--- NOTE | 2022-04-16 21:48 | P.PN_ITS ---
Subjective Subjective: Patient reports that he had gone to the OR to get lab work in preparation for planned appointment with Dr. Olmstead next week. [facility] and [facility] come to [facility] emergency room because of how low his sodium was. Dr. Olmstead's office happened to call him today. He does [place] any specific symptoms associated with low sodium. He does note that his sodium has been low earlier this year. [facility] and they do not have any blood work beyond that which resulted yesterday and last year when sodiums were normal. Patient indicates interval labs have been done here. He follows with Dr. Olmstead because of chronic kidney disease. No recent medication changes that he can describe. Does talk about difficulty sleeping. Drinks about a gallon of water a day. Home medication list includes several medicines that can contribute to hyponatremia in particular diuretics among others. Vitals/I&O/Wt Last Vital Signs Temp 97.7 F 04/16/22 20:00 Pulse 64 04/16/22 20:39 Resp 16 04/16/22 20:39 BP 140/80 04/16/22 20:00 Pulse Ox 94 04/16/22 20:39 04/16/22 04/16/22 04/16/22 06:59 14:59 22:59 Intake Total 290 / 1290 360 / 360 240 / 600 Output Total 1100 / 1100 500 / 500 850 / 1350 Balance -810 / 190 -140 / -140 -610 / -750 Weight last 48 hrs Weight 81.647 kg Weight 81.647 kg Physical Exam Narrative: Constitutional: Awake and alert, talkative HEENT: Normocephalic, moist membranes Respiratory: Clear to auscultation bilaterally Cardiovascular: Regular rhythm Abdomen: Soft, nontender Extremities: No edema Neuro: Speech clear, face symmetric, no tremor Data : 04/15/22 18:40 04/16/22 04:23 Micro: Microbiology 04/16/22 06:47 Blood Culture - Preliminary Blood SPECIMEN COLLECTED A&P Assessment and plan (1) Hyponatremia: Slow drop in sodium levels over time, but normal this time last year Appears to be chronic,Na from 12/2021 at 121. 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 Ct chest at [facility] shows pleural thickening in the mid and lower thorax with some interval improvement since prior exam. No paratracheal adenopathy or other mediastinal masses. MRI brain from 2015 had shown enlarged, enhancing pituitary infundibulum with broad differential of neurosarcoidosis, eosinophilic granuloma, sequelae of meningitis, REGULATORY COMPLIANCE MANAGER lymphoma, 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 CT head now without findings noted. Medications to note: chlorthalidone, aldactone, among others with less common relationship to hyponatremia Status: Acute (2) UTI due to Klebsiella species: First identified in the outpatient setting through Dr. Molina's office Has oral Levaquin outpatient (had taken 1 dose prior to admission Currently on Rocephin Status: Acute (3) BPH loc w urin obs/LUTS: On Flomax Status: Chronic (4) CKD (chronic kidney disease): Follows with Dr. 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 insulin 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: with detention use Plan History of hyperuricemia versus gout on allopurinol Hyperlipidemia on statin therapy Continue fluid restriction and holding of diuretic therapy Serial labs Follow-up pending urine creatinine which is able to be done on the first urine specimen in the lab [facility] Follow-up pending repeat urine culture Continue Flomax Presently continuing amlodipine, atenolol and losartan, monitor blood pressures as several medications held Needed to see if we can actually get a list [facility] the [facility] as what we have been able to identify contains many overlapping medications. With presenting condition decreasing polypharmacy would be a beneficial thing Insulin for diabetes GI prophylaxis Lovenox for DVT prophylaxis Supportive care otherwise Patient requested sleeping pill Anticipate discharge home with follow-up to Dr. Olmstead and PCP Patient was given an opportunity to ask questions Full code Attestations Medical Necessity Statement*: Requires ongoing inpatient stay due to significant hyponatremia and other issues as described. He is on IV antibiotics, multiple medications are held and serial laboratory studies are being followed Coding Level of Care Code Acute Drying Machine Back Tender for Chg Fwd Diagnoses Hyponatremia E87.1 BPH loc w urin obs/LUTS N40.1 CKD (chronic kidney disease) N18.32 Chronic kidney disease stage: stage 3 (moderate) Chronic kidney disease stage 3 subtype: stage 3b (GFR 30-44) Diabetes E11.9 Diabetes mellitus type: type 2 Diabetes mellitus brewing technician insulin use: with detention use HTN (hypertension) I15.0 Hypertension type: renovascular hypertension UTI due to Klebsiella species N39.0; B96.89
[2022-04-16] MEDS: ALPRAZolam 0.5 mg Tablet 0.25 MG PO (22:09)
[2022-04-17 04:00] VITALS: BP 130/74; PULSE 67; RESP 13; TEMP 36.5; O2SAT 98
[2022-04-17 06:00] LABS: Basophils # 0.1 10^3/uL (0.0-0.1); Basophils % 0.7 %; Eosinophils # 0.1 10^3/uL (0.0-0.8); Eosinophils % 1.9 %; Hematocrit 42.2 % (42.0-52.0); Hemoglobin 15.4 g/dL (11.7-16.6); Lymphocytes # 0.8 10^3/uL (0.8-4.8); Lymphocytes % 11.1 %; Mean Corpuscular HGB Conc 36.5 g/dL (30.0-36.0); Mean Corpuscular Hemoglobin 28.2 pg (28.0-34.0); Mean Corpuscular Volume 77.3 fl (80-94); Mean Platelet Volume 10.1 fL (7.4-10.4); Monocytes # 0.8 10^3/uL (0.2-0.9); Monocytes % 10.5 %; Neutrophils # 5.45 10^3/uL (1.8-7.7); Neutrophils % 73.6 %; Nucleated Red Blood Cells % 0 %; Platelet Count 186 10^3/cmm (130-400); Red Blood Count 5.46 10^6/uL (4.1-5.3); Red Cell Distribution Width 13.1 % (12.1-15.1); White Blood Count 7.4 10^3/uL (4.0-10.0)
[2022-04-17 06:13] LABS: Blood Urea Nitrogen 28 mg/dL (8-23); Calcium 9.9 mg/dL (8.5-10.5); Carbon Dioxide 23 mmol/L (22-29); Chloride 85 mmol/L (98-107); Glucose 131 mg/dL (65-115); Magnesium 1.8 mg/dL (1.7-2.3); Osmolality Calculated 259 mOsm/kg (285-295); Phosphorus 3.3 mg/dL (2.5-4.5); Sodium 121 mmol/L (136-145)
[2022-04-17 06:14] LABS: Creatinine Clr Calc Pharmacy 40.1771
[2022-04-17 06:15] LABS: Anion Gap 17.1 (5-19); Potassium 4.1 mmol/L (3.5-5.1)
[2022-04-17 06:16] LABS: Glucose Point of Care 130 mg/dL (70-110)
[2022-04-17 07:41] VITALS: BP 145/84; PULSE 68; RESP 17; TEMP 36.7; O2SAT 97
[2022-04-17 08:00] VITALS: PULSE 65; RESP 18; O2SAT 96
[2022-04-17] MEDS: atenolol 50 mg Tablet PO (08:58)
[2022-04-17] MEDS: pantoprazole DR 40 mg Tablet PO (08:58)
[2022-04-17] MEDS: allopurinol 100 mg Tablet PO (08:58)
[2022-04-17] MEDS: aspirin 81 mg EC Tablet PO (08:58)
[2022-04-17] MEDS: tamsulosin 0.4 mg Capsule PO (08:58)
[2022-04-17] MEDS: losartan 50 mg Tablet 100 MG PO (08:58)
[2022-04-17] MEDS: amlodipine 5 mg Tablet PO (08:58)
[2022-04-17 11:34] LABS: Glucose Point of Care 187 mg/dL (70-110)
[2022-04-17] MEDS: insulin lispro 100 unit/1 mL SUBCUT (11:47)
[2022-04-17 12:00] VITALS: BP 118/82; PULSE 91; RESP 17; TEMP 36.8; O2SAT 98
[2022-04-17 15:46] VITALS: BP 161/81; PULSE 77; RESP 17; TEMP 36.8; O2SAT 95
--- NOTE | 2022-04-17 16:44 | P.DS_ITS ---
Discharge Providers Date of Admission: 04/15/22 20:49 Date of Discharge: April 17, 2022 Attending Provider at Admission: Alicia Mendoza MD Attending Provider at Discharge: Aury Orellana MD Primary Care Provider: PCP: Haris Parsons DO Nephrology: Pete Olmstead MD Diagnoses at Discharge Discharge Diagnosis (1) Hyponatremia: Status: Acute (2) UTI due to Klebsiella species: Status: Acute (3) BPH loc w urin obs/LUTS: Status: Chronic (4) CKD (chronic kidney disease): Status: Chronic Qualifiers: Chronic kidney disease stage: stage 3 (moderate) Chronic kidney disease stage 3 subtype: stage 3b (GFR 30-44) Qualified Code(s): N18.32 - Chronic kidney disease, stage 3b Permanent problem details: Secondary to retroperitoneal fibrosis, hydronephrotic and atrophic right kidney, peritonealization of the ureters in 2019 (5) HTN (hypertension): Status: Chronic Qualifiers: Hypertension type: renovascular hypertension Qualified Code(s): I15.0 - Renovascular hypertension (6) Diabetes: Status: Chronic Qualifiers: Diabetes mellitus type: type 2 Diabetes mellitus mcfp insulin use: with intermediate manager use Reason for Visit Reason for Visit[facility] Brief History: From H&P: Jason Caro is a 71 year old male who presents to the emergency room today with chief complains of generalized fatigue and malaise. [facility] priro to his nephrology appt and was told he has low NA and referred to the ER. labs notable for sodium of 114. UA is positive for leukocyte esterase, urine WBC and 4+ bacteria . ? Renal function remains at baseline.He has been experiencing inc urinary tract symptoms since January including frequency, nocturia, weak stream, intermittency, feeling of incomplete emptying, and urgency. He also experienced some gross hematuria for 2 to 3 days in January. Was started on levaquin 250mg po daily on 04/14 however has not yet taken the medication. He has completely eliminated added salt from his diet over the past few monts in view of his CKD. Denies excessive free water consumption. Denies any c/o headache, seizures or visual disturbances. denies any recent NVD. 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 he also has a h/o long standing mediastinal and retroperitoneal adenopathy with pleural based disease suspicious for malignancy by PET/CT.? However biopsies from 2011 showed fibroadipose tissue with chronic inflammation and no evidence of malignancy.? He had multiple biopsies of a right pleural-based mass by thoracoscopy in December 2014.? Pathology showed dense fibrous tissue with no evidence of malignancy.? The underlying cause for all of this remains undetermined.? As yet there is no documented malignancy as of 2018. Hospital Course Hospital Course Mr. Maya was admitted to a medical bed. He was fluid restricted to 1-1/2 L a day. Diuretic therapy was held. With no other intervention, sodium came up to 119 then 121. He initially reported feeling more tired lately but was otherwise asymptomatic. Consistent with chronic hyponatremia. Drinks about a gallon of water daily. Has had medications prescribed by several providers and admits that it gets confusing sometimes. It was difficult to get a definitely accurate medication list. Other than diuretics, omeprazole was only other medication typically associated with hyponatremia as a side effect. As part of workup, imaging was done to re-evaluate various abnormalities previously identified such as a possible brain mass, retroperitoneal adenopathy and pleural based abnormalities. No biopsies have demonstrated evidence of malignancy. CT head, chest, abdomen/pelvis revealed no acute changes. Retroperitoneal and pulmonary regions similar appearance to prior as described below. Head imaging, which was not an MRI, showed no evidence of previously identified changes but did represent chronic microvascular changes. TSH and cortisol were normalExact cause not clear at this point but SIADH suspected etiology of hyponatremia in setting of chronic kidney disease. Component of post obstructive process also considered given lower urinary tract symptoms and UTI. Patient had recently been started on Flomax and this will be continued. Blood pressures during the hospital stay were 110s - 140s systolic. At discharge I will continue to hold diuretic therapy. He had no reports of difficulty breathing. No chest pain. Denies any history of CHF or coronary artery disease. He does have known diabetes. One of the medications help for blood pressure also include clonidine. We will have to see if he has any evidence of rebound hypertension but none was noted here. I adjusted Lantus dosing of insulin based on sugars in the hospital. I expect he will probably need increased if he is not following carbohydrate controlled diet like we have in the hospital. At the time of discharge patient was awake and alert, oriented to person place and situation, able to engage in discussion about medical issues and ask questions. Discharge plans as outlined here were reviewed with him. I did speak with the MA at Dr. Olmstead's office regarding the case. Patient has follow-up appointment already next week with them. We will send labs. His lungs were clear. He had no edema. Pulses were equal x4. Discharge Data Studies Completed and Pending Completed Studies During Hospitalization Category Date Time Status CT chest wo con [id number] Urgent Cat Scan 04/15/22 21:[address] head wo con* [id number] Routine Cat Scan 04/16/22 01:[address] kidney stone [id number] Routine Cat Scan 04/16/22 01:08 Completed CXRP [XR chest 1V portable [id number]] Stat Exams 04/15/22 20:41 Completed Pending at discharge Category Date Time Status Blood Culture AM LABS Lab 04/16/22 06:47 Results Urine Culture Stat Lab 04/15/22 21:16 Results Radiology Impressions Chest X-Ray 04/15/22 20:41 IMPRESSION: Bilateral paratracheal densities. See discussion above. Chest CT correlation is suggested. Chest CT 04/15/22 21:17 IMPRESSION: 1. Comparison chest CT 04/07/2017. 2. Bilateral posterior medial consolidative changes and probable pleural thickening in the mid and lower thorax with some interval improvement since prior exam. These findings are very difficult to visualize by frontal view radiograph. Etiology is unclear but may be related to post radiation changes. The report for prior chest CT is not available. No other history was provided. Otherwise no acute lung consolidation or ground-glass opacity. No paratracheal adenopathy or other mediastinal masses. Continued follow-up imaging may be obtained if clinically indicated. 3. Colonic diverticulosis and right renal atrophy. See discussion above. 4. Bowel-containing midline epigastric ventral hernia, new since prior exam. No obvious signs of incarceration/obstruction. Abdomen/Pelvis CT 04/16/22 01:08 IMPRESSION: 1. No hydronephrosis. 2. Severe atrophy RIGHT kidney with no hydronephrosis. 3. Mild atrophy of the LEFT kidney with no hydronephrosis. 4. Continued pleural and retrocrural thickening at the lung bases encasing the thoracic aorta with no change. 5. Mild soft tissue thickening surrounding the aorta and IVC similar to the prior studies probably due to retroperitoneal fibrosis. 6. There is a moderate amount of air in the urinary bladder. Correlate with recent catheterization. If urinary bladder was not recently catheterized alternative diagnosis such as colovesical fistula should be considered and excluded. Air producing organism also is within the differential. 7. Extensive diverticulosis without acute diverticulitis. 8. Ventral abdominal wall hernia containing a loop of small bowel with no obstruction. 9. Pneumobilia and prior cholecystectomy. 10. Stable hepatic cyst. 11. Advanced degenerative changes in the lumbar spine. Head CT 04/16/22 01:08 IMPRESSION: No acute intracranial abnormality. Laboratory Results WBC 7.4 10^3/uL (4.0-10.0) 04/17/22 05:12 RBC 5.46 10^6/uL (4.1-5.3) H 04/17/22 05:12 Hgb 15.4 g/dL (11.7-16.6) 04/17/22 05:12 Hct 42.2 % (42.0-52.0) 04/17/22 05:12 MCV 77.3 fl (80-94) L 04/17/22 05:12 MCH 28.2 pg (28.0-34.0) 04/17/22 05:12 MCHC 36.5 g/dL (30.0-36.0) H 04/17/22 05:12 RDW 13.1 % (12.1-15.1) 04/17/22 05:12 Plt Count 186 10^3/cmm (130-400) 04/17/22 05:12 MPV 10.1 fL (7.4-10.4) 04/17/22 05:12 Neut % (Auto) 73.6 % 04/17/22 05:12 Lymph % (Auto) 11.1 % 04/17/22 05:12 [place] % (Auto) 10.5 % 04/17/22 05:12 Eos % (Auto) 1.9 % 04/17/22 05:12 Baso % (Auto) 0.7 % 04/17/22 05:12 Neut # (Auto) 5.45 10^3/uL (1.8-7.7) 04/17/22 05:12 Lymph # (Auto) 0.8 10^3/uL (0.8-4.8) 04/17/22 05:12 [place] # (Auto) 0.8 10^3/uL (0.2-0.9) 04/17/22 05:12 Eos # (Auto) 0.1 10^3/uL (0.0-0.8) 04/17/22 05:12 Baso # (Auto) 0.1 10^3/uL (0.0-0.1) 04/17/22 05:12 Nucleated RBC % (auto) 0 % 04/17/22 05:12 Nucleated RBCs # 0.0 /100WBC 04/17/22 05:12 Sodium 121 mmol/L (136-145) L 04/17/22 05:12 Potassium 4.1 mmol/L (3.5-5.1) 04/17/22 05:12 Chloride 85 mmol/L (98-107) L 04/17/22 05:12 Carbon Dioxide 23 mmol/L (22-29) 04/17/22 05:12 Anion Gap 17.1 (5-19) 04/17/22 05:12 BUN 28 mg/dL (8-23) H 04/17/22 05:12 Creatinine 1.7 mg/dL (0.7-1.2) H 04/17/22 05:12 GFR Calculation Not Reportable 04/17/22 05:12 Glucose 131 mg/dL (65-115) H 04/17/22 05:12 POC Glucose 187 mg/dL (70-110) H 04/17/22 11:27 Calculated Osmolality 259 mOsm/kg (285-295) L 04/17/22 05:12 Uric Acid 8.0 mg/dL (3.4-7.0) H 04/16/22 04:23 Calcium 9.9 mg/dL (8.5-10.5) 04/17/22 05:12 Phosphorus 3.3 mg/dL (2.5-4.5) 04/17/22 05:12 Magnesium 1.8 mg/dL (1.7-2.3) 04/17/22 05:12 Total Bilirubin 0.5 mg/dL (0.15-1.2) 04/16/22 04:23 AST 15 U/L (0-40) 04/16/22 04:23 ALT 13 U/L (0-41) 04/16/22 04:23 Alkaline Phosphatase 108 IU/L (40-130) 04/16/22 04:23 Total Protein 7.3 g/dL (6.6-8.7) 04/16/22 04:23 Albumin 4.3 g/dL (3.5-5.2) 04/16/22 04:23 Globulin 3.0 g/dL (1.3-4.6) 04/16/22 04:23 Triglycerides 199 mg/dL (0-150) H 04/15/22 18:40 Cholesterol 197 mg/dL (0-200) 04/15/22 18:40 LDL Cholesterol, Calc 103 mg/dL (50-129) 04/15/22 18:40 HDL Cholesterol 54 mg/dL (60-100) L 04/15/22 18:40 LDL/HDL Ratio 1.91 RATIO (0.00-3.22) 04/15/22 18:40 Cholesterol/HDL Ratio 3.65 mg/dL (1.0-5.00) 04/15/22 18:40 TSH 3.57 uIU/mL (0.27-4.20) 04/16/22 04:23 Random Cortisol 13.78 ug/dL (2.47-19.5) 04/15/22 18:40 Urine Color Yellow (Yellow) 04/15/22 21:16 Urine Appearance Sl hazy (CLEAR) 04/15/22 21:16 Urine pH 5 (5-7) 04/15/22 21:16 Ur Specific [place] 1.010 (1.005-1.030) 04/15/22 21:16 Urine Protein 2+ (Negative) H 04/15/22 21:16 Urine Glucose (UA) Norm (Normal) 04/15/22 21:16 Urine Ketones Negative (Negative) 04/15/22 21:16 Urine Blood 2+ (Negative) H 04/15/22 21:16 Urine Nitrate Negative (Negative) 04/15/22 21:16 Urine Bilirubin Neg (Negative) 04/15/22 21:16 Urine Urobilinogen Norm mg/dL (Negative) 04/15/22 21:16 Ur Leukocyte Esterase 2+ (Negative) H 04/15/22 21:16 Urine RBC 0-4 /hpf (0-2) H 04/15/22 21:16 Urine WBC 40-55 /hpf (0-5) H 04/15/22 21:16 Ur Squamous Epith Cells 0-4 /hpf (0-5) H 04/15/22 21:16 Amorphous Sediment Not Reportable 04/15/22 21:16 Urine Bacteria 4+ /hpf (NONE) H 04/15/22 21:16 Ur Random Sodium 33 mmol/L 04/15/22 21:16 Ur Random Potassium 13 mmol/L 04/15/22 21:16 Ur Random Chloride 24 mmol/L 04/15/22 21:16 Urine Creatinine 47 mg/dL (39-259) 04/16/22 20:16 RPR Nonreactive (Nonreactive) 04/15/22 18:40 HIV 1&2 Ab & HIV 1 Ag Non-reactive (Non-Reactiv) 04/15/22 18:40 HIV 1&2 Antibody Non-reactive (Non-Reactiv) 04/15/22 18:40 Laboratory Tests 04/15/22 04/15/22 04/16/22 18:40 18:40 04:23 WBC 10.9 H Hgb 15.5 Plt Count 206 Neut % (Auto) 77.1 Lymph % (Auto) 9.5 Sodium 114 L* 119 L* Potassium 4.1 4.2 Chloride 76 L 81 L Carbon Dioxide 22 25 BUN 27 H 25 H Creatinine 1.6 H 1.5 H Glucose 180 H 121 H Calculated Osmolality 248 L 254 L Calcium 10.0 Vitals Last Vital Signs Temp 98.3 F 04/17/22 15:46 Pulse 77 04/17/22 15:46 Resp 17 04/17/22 15:46 BP 161/81 04/17/22 15:46 Pulse Ox 95 04/17/22 15:46 Discharge Plan Discharge Patient Disposition: Home Condition: Stable Prescriptions: New amoxicillin-pot clavulanate 875-125 mg tablet 1 tab PO BID Qty: 10 0RF Continued cetirizine [All Day Allergy (cetirizine)] 10 mg tablet 5 mg PO DAILY PRN (Reason: Allergy Symptoms) 0RF chlorhexidine gluconate 0.12 % mouthwash 15 ml buccal DAILY 0RF cholecalciferol (vitamin D3) 50 mcg (2,000 unit) capsule 50 mcg PO DAILY 0RF latanoprost (PF) 0.005 % drops 1 drp ophthalmic (eye) DAILY 0RF mupirocin 2 % ointment 1 applic topical BID 0RF triamcinolone acetonide 0.1 % cream 1 applic topical .PRN 0RF acetaminophen 325 mg capsule 325 mg PO QID PRN (Reason: Pain) 0RF amlodipine 5 mg tablet 5 mg PO BID 0RF aspirin 81 mg tablet,delayed release (DR/EC) 81 mg PO DAILY 0RF docusate sodium 100 mg capsule 100 mg PO TID 0RF fluticasone propionate [Allergy Relief (fluticasone)] 50 mcg/actuation spray,suspension 2 spray intranasal DAILY 0RF Rx Instructions: administer into each nostril folic acid 1 mg tablet 1 mg PO DAILY 0RF guaifenesin 400 mg tablet 400 mg PO Q4H PRN (Reason: Cough) 0RF sennosides [Evac-U-Gen (sennosides)] 8.6 mg tablet 8.6 mg PO BID 0RF famotidine 20 mg tablet 20 mg PO BID 0RF tamsulosin 0.4 mg capsule 0.4 mg PO BID Qty: 180 1RF albuterol sulfate 90 mcg/actuation Hfa Aerosol Inhaler 2 puff INHALATION QID PRN (Reason: Shortness Of Breath) 0RF Fish Oil 300-1,000 mg Capsule 1 cap PO BID 0RF carboxymethylcell-glycerin(PF) 0.5-0.9 % Drops 1 drp OPHTHALMIC (EYE) QID 0RF losartan 100 mg Tablet 100 mg PO DAILY 0RF Changed atenolol 100 mg tablet 50 mg PO 1XD Qty: 0 0RF pravastatin 20 mg tablet 10 mg PO DAILY Qty: 0 0RF insulin glargine 100 unit/mL (3 mL) insulin pen 12 unit SUBCUT BEDTIME Qty: 0 0RF Held clonidine HCl 0.3 mg tablet 0.3 mg PO TID 0RF Hold Instructions: unless instructed to resume Discontinued chlorthalidone 25 mg tablet 25 mg PO DAILY 0RF omeprazole 20 mg capsule,delayed release(DR/EC) 20 mg PO DAILY 0RF spironolactone 25 mg tablet 25 mg PO DAILY 0RF Discharge Orders: Discharge Order (Routine); Ordered 04/17/22 Ordered By: Aury Orellana Other Ambulatory Orders: Basic Metabolic Panel (Routine) Timeframe: 3 Days Location: Determined by Patient Ordered By: Aury Orellana Referrals: Pete Olmstead MD [Referring] - 4-7 days (KEEP ALREADY SCHEDULED appointment next week ) Haris Parsons DO [Primary Care Provider] - 2 weeks (FOLLOW UP APPOINTMENT .PLEASE CALL [facility] TO SCHEDULE THIS FOLLOW WITH [facility]. YOU WILL NEED A BMP AT THIS APPOINTMENT.) Discharge Diet: As Directed and Low Salt Discharge Activity: Increase activity as tolerated Patient Instructions: Amoxicillin/Clavulanate Potassium (By mouth) (Augmentin, Augmentin..., Chronic Kidney Disease (DC), Hyponatremia (DC), Opioid Safety Activity Restrictions/Additional Instructions: You presented to the emergency room with report of low sodium levels. Sodium level was found to be 114 with BUN and creatinine of 27/1.6. Review of records here indicate that previous sodium level in December of this year was 121. In 2020 your sodium levels were normal here. Home medication list indicates that you were on 3 medicines that can potentially be associated with low sodium including chlorthalidone, omeprazole and spironolactone. These were held and will not be continued at discharge for this reason. Fluid restriction was initiated. Recommend that you restrict your fluid intake to approximately 1.5 L maximum a day. This is about a 3rd of what you indicated you normally drink. Follow this fluid restriction until follow-up with Dr. Olmstead. Your urine culture was again positive for gram-negative rods. Culture from the day prior to admission had grown Klebsiella. Expect that the same organism will be identified. You were treated with Rocephin in the hospital and prescribed Augmentin at discharge. Take antibiotics as directed until finished. If your urine culture results show anything new we will contact you. Keep follow-up with Dr. Olmstead and Dr. Parsons. Discharge summaries will be sent to both of them. Please take this paper with you to your doctor's appointments. Sodium level at discharge was at 121. Your BUN and creatinine were 28/1.7. You were feeling good without complaints. Blood pressure was ranging 118-149/71-80. Discharge Attestations Time Spent in Discharge Care*: greater than 30 min Specific Discharge Activities: educating patient, discussing with pcp/other providers, discussing with rehabilitation caseworker/social workers/dc planners, documenting/other paperwork and evaluating patient/reviewing data Quality Metrics Clinical Quality Measures [ No reported AMI, CVA or VTE this stay] Coding Level of Care Code Acute Chg FW DC note Diagnoses Hyponatremia E87.1 UTI due to Klebsiella species N39.0; B96.89 BPH loc w urin obs/LUTS N40.1 CKD (chronic kidney disease) N18.32 Chronic kidney disease stage: stage 3 (moderate) Chronic kidney disease stage 3 subtype: stage 3b (GFR 30-44) HTN (hypertension) I15.0 Hypertension type: renovascular hypertension Diabetes E11.9 Diabetes mellitus type: type 2 Diabetes mellitus mcfp insulin use: with intermediate manager use
[2022-04-17 16:54] LABS: Glucose Point of Care 347 mg/dL (70-110)
== END 2022-04-17 17:13 | disposition home or self-care (01) | DRG 644 ==
LOC: ER 21:11 → MEDSURG 22:10
PROVIDERS: Physician Assistant; Admitting Provider Student in an Organized Health Care Education/Training Program; Emergency Provider Emergency Medicine; PCP Emergency Medicine Emergency Medical Services; Visit Provider Hospitalist
DX: E22.2 Syndrome of inappropriate secretion of antidiuretic hormone (principal); N39.0 Urinary tract infection, site not specified; B96.1 Klebsiella pneumoniae [K. pneumoniae] as the cause of diseases classified elsewhere; E11.22 Type 2 diabetes mellitus with diabetic chronic kidney disease; I12.9 Hypertensive chronic kidney disease with stage 1 through stage 4 chronic kidney disease, or unspecified chronic kidney disease; N18.32 Chronic kidney disease, stage 3b; N40.1 Benign prostatic hyperplasia with lower urinary tract symptoms; R35.0 Frequency of micturition; R39.12 Poor urinary stream; R39.15 Urgency of urination; E78.5 Hyperlipidemia, unspecified; E79.0 Hyperuricemia without signs of inflammatory arthritis and tophaceous disease; R94.02 Abnormal brain scan; Z79.4 Long term (current) use of insulin; Z79.82 Long term (current) use of aspirin
CPT/HCPCS: 36415; 36416; 70450; 71045; 71250; 74176; 80048; 80053; 80061; 81001; 82436; 82533; 82570; 82962; 83735; 84100; 84133; 84300; 84443; 84550; 85025; 86592; 87040; 87077; 87086; 87186; 87806; 88112; 93005; 96360; 96372; 99285; J0696; J1650; J1815; J7030

== ENCOUNTER → 2022-05-28 09:04 | Outpatient (BNVA) | payer OTHER, SELFPAY | PROVIDERS: PCP Emergency Medicine Emergency Medical Services; Visit Provider Urology | DX: N40.1 Benign prostatic hyperplasia with lower urinary tract symptoms (principal); N47.1 Phimosis; R31.0 Gross hematuria | CPT/HCPCS: 81003; 99213 ==

== ENCOUNTER → 2022-06-03 13:24 | Outpatient (BNVA) | payer OTHER, SELFPAY | PROVIDERS: PCP Emergency Medicine Emergency Medical Services; Visit Provider Urology | DX: N47.1 Phimosis (principal) | CPT/HCPCS: 54161 ==

== ENCOUNTER → 2022-06-17 14:43 | Outpatient (BNVA) | payer OTHER, SELFPAY | PROVIDERS: PCP Emergency Medicine Emergency Medical Services; Visit Provider Urology | DX: N40.1 Benign prostatic hyperplasia with lower urinary tract symptoms (principal); R31.0 Gross hematuria; N39.0 Urinary tract infection, site not specified; B96.89 Other specified bacterial agents as the cause of diseases classified elsewhere; N47.1 Phimosis; N18.32 Chronic kidney disease, stage 3b | CPT/HCPCS: 52000; 99213 ==

== ENCOUNTER 2022-11-10 07:23 | Outpatient (CLI) | payer OTHER, SELFPAY ==
--- NOTE | 2022-11-10 07:45 | US_ITS ---
WS: [id number] RENAL ULTRASOUND HISTORY: Gross Hematuria COMPARISON: 04/16/2022, 11/04/2020 TECHNIQUE: 2-D and color Doppler imaging of the kidney submitted. Right kidney: 9.5 cm x 4.6 cm x 5.8 cm. Low normal size kidney with marked loss of the normal landmarks. Increased echogenicity. Cortical thi nning and 8.5 mm. Findings consistent with atrophy and fatty replaced kidney as seen on a prior CT. N o hydronephrosis. Left kidney: 10.3 cm x 3.4 cm x 6.6 cm. Echogenic kidney. No mass or hydronephrosis. Aorta: Normal. Urinary Bladder: Nondistended. US/US renal BI* [id number] IMPRESSION: 1. Atrophied echogenic RIGHT kidney. Similar to prior studies. 2. Mild chronic medical renal disease LEFT kidney with no obstruction.
== END 2022-11-10 07:24 | disposition home or self-care (01) ==
PROVIDERS: PCP Emergency Medicine Emergency Medical Services; Visit Provider Urology
DX: R31.0 Gross hematuria (principal)
CPT/HCPCS: 76770; 81003; 87086; 99213

== ENCOUNTER → 2022-11-17 07:35 | Outpatient (BNVA) | payer OTHER, SELFPAY | PROVIDERS: PCP Emergency Medicine Emergency Medical Services; Visit Provider Urology | DX: N40.1 Benign prostatic hyperplasia with lower urinary tract symptoms (principal) | CPT/HCPCS: 87077; 87086; 87186 ==

== ENCOUNTER 2023-02-05 16:20 | Emergency (ER) | payer OTHER, SELFPAY ==
[2023-02-05 16:34] VITALS: BP 145/98; PULSE 112; RESP 16; TEMP 36.7; O2SAT 99; BMI 28.8
--- NOTE | 2023-02-05 16:37 | ECG_ITS ---
[facility] Test Date: 2023-02-05 Pat Name: Jason Caro Department: Room: Gender: Male Cath Lab: : 1950 Requested By: Keith Funez Order Number: [id number] David MD: Cachorro Farrell M.D. Measurements Intervals [place] Rate: 104 P: 118 LA: 229 QRS: 6 QRSD: 89 T: -2 QT: 308 QTc: 405 Interpretive Statements SINUS TACHYCARDIA WITH FIRST DEGREE AV BLOCK NONSPECIFIC T-WAVE ABNORMALITY Compared to ECG 04/15/2022 21:11:57 First degree AV block now present T-wave abnormality now present Ectopic atrial rhythm no longer present Electronically Signed On 02-05-2023 23:03:24 CDT by Cachorro Farrell M.D. [id number]
--- NOTE | 2023-02-05 17:08 | W.ED.RECABL ---
HPI - Recheck/Abnormal Lab/Rx General: Chief Complaint: Recheck/Abnormal Lab/Rx Stated Complaint: states high calcium Time Seen by Provider: 02/05/23 18:16 History of Present Illness: 72-year-old gentleman who had his blood drawn earlier today at the [facility], and his calcium was noted to be high, 12.5. He was called by his buffer automatic, and urged to come to the emergency room for this. He is asymptomatic. He states that he feels really good he was placed on an antibiotic last week for urinary tract infection, but does not know which 1. Symptoms since prior visit: no new symptoms Associated symptoms: none Treatments prior to arrival: other Review of Systems Const: Denies: fever(s) Card: Denies: chest pain Resp: Denies: dyspnea, productive cough or non-productive cough GI: Denies: abdominal pain, nausea or vomiting : Reports: urinary frequency and nocturia; Denies: flank pain or dysuria Neuro: Denies: headache(s) or weakness in extremities PFSH ED PFSH: Medical History BPH loc w urin obs/LUTS Brain mass MRI brain from 2014 had shown enlarged, enhancing pituitary infundibulum with broad differential of neurosarcoidosis, eosinophilic granuloma, sequelae of meningitis, UPPER LINING CEMENTER lymphoma, 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 CT head 04/2022 without abnormality noted. 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, hydronephrotic and atrophic right kidney, peritonealization of the ureters in 2019 Diabetes Gout Gross hematuria H/O malignant neoplasm of skin FACE H/O pilonidal cyst HTN (hypertension) Hyperuricemia Hypoglycemia Idiopathic hypersomnia Lung nodule Mediastinal mass Pleural based with mediastinal adenopathy, biopsy has been benign in the past Meningeal disorder Obstructive sleep apnea Osteoarthritis, multiple sites Phimosis Retroperitoneal fibrosis Surgical History H/O foot surgery BONE SPURS REMOVED BILATERAL FEET S/P appendectomy S/P cataract surgery S/p total knee replacement, bilateral Status post cholecystectomy Family History Mother , IN HER 70'S No problems noted. Father , AT AGE 92 No problems noted. Social History Smoking and tobacco status: never smoked Alcohol intake: never Marital status: Current occupational status: retired Physical Exam Const: COMMON NORMALS: no acute distress GENERAL APPEARANCE: cooperative; not ill appearing and not frail appearing HENMT: COMMON NORMALS: normocephalic, atraumatic and Normal external nose present HEAD & SCALP: normocephalic and atraumatic FACE & SINUS: normal facial exam and face symmetric NOSE: Normal external nose present Eye: COMMON NORMALS: Equal, round and reactive pupils present and EOMs intact bilaterally PUPIL: Yes Equal, round and reactive pupils present Neck/C-Spine: GENERAL: Yes trachea midline Chest: CHEST: Yes Symmetrical chest wall rise Resp: COMMON NORMALS: normal respiratory effort, No retractions, No use of accessory muscles and clear to auscultation bilaterally AUSCULTATION: clear to auscultation bilaterally Cardio: COMMON NORMALS: regular rate and regular rhythm RATE: regular rate RHYTHM: regular rhythm GI: COMMON NORMALS: Normal to inspection, nondistended, normoactive bowel sounds present Extremity: COMMON NORMALS: no pedal edema Neuro: ANA COMA SCALE: document GCS findings [place] coma scale eye opening: Spontaneous [place] coma scale verbal response: Orientated [place] coma scale motor response: Obey commands [place] coma scale total score: 15 SENSORY EXAM: Yes extremities (intact) Psych: COMMON NORMALS: speech normal SPEECH: Yes normal speech Skin: COMMON NORMALS: no rashes or lesions noted GENERAL SKIN EXAM: no rashes or lesions noted Course Vital Signs: Vital signs: Vital Signs Temperature 98.0 F 02/05/23 16:34 Pulse Rate 83 02/05/23 20:00 Respiratory Rate 16 02/05/23 20:00 Blood Pressure 171/97 02/05/23 20:00 Pulse Oximetry 98 02/05/23 20:00 Oxygen Delivery Me thod Room Air 02/05/23 20:00 MDM - Recheck/Abnormal Lab/Rx Medical Decision Making Asymptomatic 72-year-old man sent for hypercalcemia. Calcium on our drawl is down to 11.4. Repeated for TSH and parathyroid levels, and calcium is down to 10.8. This was after IV fluid, and Lasix administration. Patient has had good diuresis here. Renal function is worse than it was prior, suspect the use of antibiotics for urinary tract infection last week as a culprit. We will allow discharge, but have him have his repeat BMP on Wednesday with results to his physician. He knows to return for any problems. Lab Data 02/05/23 17:02/05/23: Laboratory Results WBC 7.9 10^3/uL (4.0-10.0) 02/05/23: RBC 4.85 10^6/uL (4.1-5.3) 02/05/23: Hgb 12.7 g/dL (11.7-16.6) 02/05/23: Hct 39.2 % (42.0-52.0) L 02/05/23: MCV 80.8 fl (80-94) 02/05/23: MCH 26.2 pg (28.0-34.0) L 02/05/23: MCHC 32.4 g/dL (30.0-36.0) 02/05/23: RDW 13.8 % (12.1-15.1) 02/05/23: Plt Count 169 10^3/cmm (130-400) 02/05/23: MPV 10.4 fL (7.4-10.4) 02/05/23: Neut % (Auto) 78.8 % 02/05/23: Lymph % (Auto) 9.3 % 02/05/23: [place] % (Auto) 8.4 % 02/05/23: Eos % (Auto) 2.0 % 02/05/23 17: Baso % (Auto) 0.4 % 02/05/23: Neut # (Auto) 6.21 10^3/uL (1.8-7.7) 02/05/23: Lymph # (Auto) 0.7 10^3/uL (0.8-4.8) L 02/05/23: [place] # (Auto) 0.7 10^3/uL (0.2-0.9) 02/05/23: Eos # (Auto) 0.2 10^3/uL (0.0-0.8) 02/05/23 17:29 Baso # (Auto) 0.0 10^3/uL (0.0-0.1) 02/05/23 17: Nucleated RBC % (auto) 0 % 02/05/23 17: Nucleated RBCs # 0.0 /100WBC 02/05/23 17: Sodium 133 mmol/L (136-145) L 02/05/23 17: Potassium 4.1 mmol/L (3.5-5.1) 02/05/23 17: Chloride 96 mmol/L (98-107) L 02/05/23 17: Carbon Dioxide 25 mmol/L (22-29) 02/05/23 17: Anion Gap 16.1 (5-19) 02/05/23 17: BUN 26 mg/dL (8-23) H 02/05/23 17: Creatinine 2.4 mg/dL (0.7-1.2) H 02/05/23 17: GFR Calculation Not Reportable 02/05/23 17: Glucose 90 mg/dL (65-115) 02/05/23 17: Calculated Osmolality 280 mOsm/kg (285-295) L 02/05/23 17: Calcium 11.4 mg/dL (8.5-10.5) H 02/05/23 17: Total Bilirubin 0.4 mg/dL (0.15-1.2) 02/05/23 17:29 AST 17 U/L (0-40) 02/05/23 17: ALT 10 U/L (0-41) 02/05/23 17: Alkaline Phosphatase 110 U/L (40-130) 02/05/23 17: Total Protein 6.7 g/dL (6.6-8.7) 02/05/23 17: Albumin 3.7 g/dL (3.5-5.2) 02/05/23 17: Globulin 3.0 g/dL (1.3-4.6) 02/05/23 17: TSH 4.19 uIU/mL (0.27-4.20) 02/05/23 17: PTH Intact 16.9 pg/mL (15-65) 02/05/23 17: Calcium (PTH Intact) 10.8 mg/dL (8.5-10.5) H 02/05/23 17:29 Discharge Plan Discharge Patient Disposition: Home Clinical Impression: CKD (chronic kidney disease), Hypercalcemia Condition: Stable Prescriptions: No Action cetirizine [All Day Allergy (cetirizine)] 10 mg tablet 5 mg PO DAILY PRN (Reason: Allergy Symptoms) chlorhexidine gluconate 0.12 % mouthwash 15 ml buccal DAILY cholecalciferol (vitamin D3) 50 mcg (2,000 unit) capsule 50 mcg PO DAILY clonidine HCl 0.3 mg tablet 0.3 mg PO TID Hold Instructions: unless instructed to resume latanoprost (PF) 0.005 % drops 1 drp ophthalmic (eye) DAILY mupirocin 2 % ointment 1 applic topical BID triamcinolone acetonide 0.1 % cream 1 applic topical .PRN acetaminophen 325 mg capsule 325 mg PO QID PRN (Reason: Pain) amlodipine 5 mg tablet 5 mg PO BID aspirin 81 mg tablet,delayed release (DR/EC) 81 mg PO DAILY docusate sodium 100 mg capsule 100 mg PO TID fluticasone propionate [Allergy Relief (fluticasone)] 50 mcg/actuation spray,suspension 2 spray intranasal DAILY Rx Instructions: administer into each nostril folic acid 1 mg tablet 1 mg PO DAILY guaifenesin 400 mg tablet 400 mg PO Q4H PRN (Reason: Cough) sennosides [Evac-U-Gen (sennosides)] 8.6 mg tablet 8.6 mg PO BID famotidine 20 mg tablet 20 mg PO BID tamsulosin 0.4 mg capsule 0.4 mg PO BID Qty: 180 1RF allopurinol 100 mg tablet 100 mg PO DAILY fluticasone propion-salmeterol [Wixela Inhub] 100-50 mcg/dose blister with device 1 inh inhalation BID sulfamethoxazole-trimethoprim 800-160 mg tablet 1 tab PO BID Qty: 28 1RF albuterol sulfate 90 mcg/actuation Hfa Aerosol Inhaler 2 puff INHALATION QID PRN (Reason: Shortness Of Breath) Fish Oil 300-1,000 mg Capsule 1 cap PO BID carboxymethylcell-glycerin(PF) 0.5-0.9 % Drops 1 drp OPHTHALMIC (EYE) QID atenolol 100 mg tablet 50 mg PO 1XD Qty: 0 0RF pravastatin 20 mg tablet 10 mg PO DAILY Qty: 0 0RF insulin glargine 100 unit/mL (3 mL) insulin pen 12 unit SUBCUT BEDTIME Qty: 0 0RF losartan 100 mg Tablet 100 mg PO DAILY Discharge Orders: Discharge ED (Routine); Ordered 02/05/23 Ordered By: Shreyas Valenzuela Other Ambulatory Orders: Basic Metabolic Panel (Routine) Timeframe: 3 Days Facility: [facility] - Location: Lab - Main Lab Ordered By: Shreyas Valenzuela Referrals: Haris Parsons DO [Primary Care Provider] - 1-3 days Patient Instructions: Opioid Safety, Pain Management Activity Restrictions/Additional Instructions: Return for any symptoms such as weakness, chest discomfort, muscle spasms or twitches, any other concerning symptoms. Have your blood drawn on Wednesday to repeat your calcium level and check your kidney function. Coding Level of Care Code ED Fur Blowing Machine Attendant for Aurea Stevens
[2023-02-05 17:39] LABS: Basophils % 0.4 %; Eosinophils # 0.2 10^3/uL (0.0-0.8); Hematocrit 39.2 % (42.0-52.0); Hemoglobin 12.7 g/dL (11.7-16.6); Lymphocytes # 0.7 10^3/uL (0.8-4.8); Lymphocytes % 9.3 %; Mean Corpuscular HGB Conc 32.4 g/dL (30.0-36.0); Mean Corpuscular Hemoglobin 26.2 pg (28.0-34.0); Mean Corpuscular Volume 80.8 fl (80-94); Mean Platelet Volume 10.4 fL (7.4-10.4); Monocytes # 0.7 10^3/uL (0.2-0.9); Monocytes % 8.4 %; Neutrophils # 6.21 10^3/uL (1.8-7.7); Neutrophils % 78.8 %; Nucleated Red Blood Cells % 0 %; Platelet Count 169 10^3/cmm (130-400); Red Blood Count 4.85 10^6/uL (4.1-5.3); Red Cell Distribution Width 13.8 % (12.1-15.1); White Blood Count 7.9 10^3/uL (4.0-10.0)
[2023-02-05 18:09] LABS: Alanine Aminotransferase 10 U/L (0-41); Albumin Level 3.7 g/dL (3.5-5.2); Alkaline Phosphatase 110 U/L (40-130); Anion Gap 16.1 (5-19); Aspartate Amino Transferase 17 U/L (0-40); Blood Urea Nitrogen 26 mg/dL (8-23); Calcium 11.4 mg/dL (8.5-10.5); Carbon Dioxide 25 mmol/L (22-29); Chloride 96 mmol/L (98-107); Glucose 90 mg/dL (65-115); Osmolality Calculated 280 mOsm/kg (285-295); Potassium 4.1 mmol/L (3.5-5.1); Sodium 133 mmol/L (136-145); Total Bilirubin 0.4 mg/dL (0.15-1.2); Total Protein 6.7 g/dL (6.6-8.7)
[2023-02-05 18:26] VITALS: BP 171/97; PULSE 105; RESP 16; O2SAT 97
[2023-02-05 19:33] LABS: Thyroid Stimulating Hormone 4.19 uIU/mL (0.27-4.20)
[2023-02-05 19:34] LABS: Calcium 10.8 mg/dL (8.5-10.5); Parathyroid Hormone 16.9 pg/mL (15-65)
[2023-02-05 20:00] VITALS: BP 171/97; PULSE 83; RESP 16; O2SAT 98
[2023-02-05] MEDS: sodium chloride 0.9% 1,000 ML 999 ML IV (20:08)
[2023-02-05] MEDS: FUROsemide 10 mg/mL SDV 4mL 40 MG IVP (20:08)
== END 2023-02-05 22:26 | disposition home or self-care (01) ==
PROVIDERS: Physician Assistant; Emergency Provider Emergency Medicine; PCP Emergency Medicine Emergency Medical Services
DX: E83.52 Hypercalcemia (principal); I12.9 Hypertensive chronic kidney disease with stage 1 through stage 4 chronic kidney disease, or unspecified chronic kidney disease; E11.22 Type 2 diabetes mellitus with diabetic chronic kidney disease; N18.9 Chronic kidney disease, unspecified; Z79.82 Long term (current) use of aspirin; Z79.4 Long term (current) use of insulin
CPT/HCPCS: 36415; 51798; 80053; 82310; 83970; 84443; 85025; 93005; 96374; 99284; J1940; J7030

== ENCOUNTER 2023-02-19 08:38 | Outpatient (RCR) | payer OTHER, SELFPAY | END 2023-02-24 23:59 | disposition home or self-care (01) | LOC: SPT 08:38 | PROVIDERS: Visit Provider Emergency Medicine Emergency Medical Services | DX: S46.001D Unspecified injury of muscle(s) and tendon(s) of the rotator cuff of right shoulder, subsequent encounter (principal); X58.XXXD Exposure to other specified factors, subsequent encounter | CPT/HCPCS: 97110; 97161 ==

== ENCOUNTER 2023-02-23 19:16 | Emergency (ER) | payer OTHER, SELFPAY ==
--- NOTE | 2023-02-23 19:27 | XRR_ITS ---
PROCEDURE INFORMATION: Exam: XR Right Shoulder Exam date and time: 02/23/2023 7:49 PM Age: 72 years old Clinical indication: Injury or trauma; Other: Reached up with arm; Other: FX TECHNIQUE: Imaging protocol: Radiologic exam of the right shoulder. Views: 2 or more views. COMPARISON: CT chest wo con [id number] 04/15/2022 9:32 PM FINDINGS: Bones/joints: There is comminuted mildly displaced fracture of the surgical neck of the right humerus with multiple small butterfly fragments. Glenohumeral joint is intact. Soft tissues: Normal. XR/XR shoulder RT min 2V* [id number] IMPRESSION: Comminuted fracture of the neck of the right humerus.
[2023-02-23 19:34] VITALS: BP 133/79; PULSE 113; RESP 14; TEMP 36.8; O2SAT 98; BMI 27.7
--- NOTE | 2023-02-23 19:55 | W.ED.EXTPRO ---
HPI - Extremity Problem General: Chief complaint: Extremity Injury, Upper Stated complaint: right shoulder injury Time Seen by Provider: 02/23/23 19:43 History of Present Illness: Patient presents to the ER today with complaints of right shoulder pain. States he is working on his lawn more today and reached up to grab something and felt a crack and a pop in his right shoulder and immediately started hurting. Patient does have some purple and red discoloration to his right bicep that was there prior to this injury. He states his got darker today. MD Complaint: extremity pain and joint pain Onset (ago): minute(s) (Just prior to arrival) Pain Consistency: constant Location: right and upper extremity Quality: aching Radiation: none Relieving factors: nothing Exacerbating factors: range of motion and palpation Associated symptoms: Reports no associated symptoms; Deny chest pain or fever(s) Review of Systems General: Reports: 10 or more systems reviewed and unremarkable except in HPI and below Const: Denies: fever(s) or chills Eyes: Denies: change in vision or photophobia ENMT: Denies: throat pain or odynophagia Card: Denies: chest pain, palpitations or irregular heart rhythm Resp: Denies: dyspnea, productive cough or non-productive cough GI: Denies: abdominal pain, nausea, vomiting or diarrhea : Denies: flank pain or difficulty urinating Musc: Reports: extremity pain and joint pain; Denies: neck pain or back pain PFS ED PFSH: Medical History BPH loc w urin obs/LUTS Brain mass MRI brain from 2014 had shown enlarged, enhancing pituitary infundibulum with broad differential of neurosarcoidosis, eosinophilic granuloma, sequelae of meningitis, 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 CT head 04/2022 without abnormality noted. 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, hydronephrotic and atrophic right kidney, peritonealization of the ureters in 2019 Diabetes Gout Gross hematuria H/O malignant neoplasm of skin FACE H/O pilonidal cyst HTN (hypertension) Hyperuricemia Hypoglycemia Idiopathic hypersomnia Lung nodule Mediastinal mass Pleural based with mediastinal adenopathy, biopsy has been benign in the past Meningeal disorder Obstructive sleep apnea Osteoarthritis, multiple sites Phimosis Retroperitoneal fibrosis Surgical History H/O foot surgery BONE SPURS REMOVED BILATERAL FEET S/P appendectomy S/P cataract surgery S/p total knee replacement, bilateral Status post cholecystectomy Family History Mother , IN HER 70'S No problems noted. Father , AT AGE 92 No problems noted. Social History Smoking and tobacco status: never smoked Alcohol intake: never Marital status: Current occupational status: retired Physical Exam Const: COMMON NORMALS: no acute distress, average body habitus, patient oriented x3, no limitations, healthy appearing, alert and well nourished HENMT: COMMON NORMALS: normocephalic, atraumatic, hearing grossly normal bilaterally, external ears normal, Normal external nose present and moist oral mucous membranes HEAD & SCALP: normocephalic and atraumatic NOSE: Normal external nose present EXTERNAL EAR: Yes external ears normal Neck/C-Spine: COMMON NORMALS: full ROM, no lymphadenopathy, supple, no meningeal signs, no JVD and Thyroid normal THYROID: Thyroid normal Chest: COMMONS NORMALS: normal inspection of the chest and normal palpation of entire chest wall Resp: COMMON NORMALS: normal respiratory effort, No retractions, No use of accessory muscles and clear to auscultation bilaterally AUSCULTATION: clear to auscultation bilaterally Cardio: COMMON NORMALS: no JVD, regular rhythm, S1 normal heart sound present, S2 normal heart sound present, No gallops present (Cardio), No clicks present (Cardio), No murmurs present (Cardio) and No rub (Cardio) RHYTHM: regular rhythm HEART SOUNDS: S1 normal heart sound present and S2 normal heart sound present GI: COMMON NORMALS: Normal to inspection, nondistended, normoactive bowel sounds present, Soft to palpation, non-tender, No hepatosplenomegaly present and no masses PALPATION: Yes Soft to palpation and Yes No hepatosplenomegaly present Extremity: NARRATIVE EXTREMITY EXAM: Pain with palpation over right proximal humerus with discoloration over entire upper arm region. Neuro: COMMON NORMALS: patient oriented x3 SENSORIUM/ORIENTATION: Yes alert MENINGEAL SIGNS: Yes no meningeal signs Course Vital Signs: Vital signs: Vital Signs Temperature 98.3 F 02/23/23 19:34 Pulse Rate 113 H 02/23/23 19:34 Respiratory Rate 14 02/23/23 19:34 Blood Pressure 133/79 02/23/23 19:34 Pulse Oximetry 98 02/23/23 19:34 Oxygen Delivery Me thod Room Air 02/23/23 19:34 MDM - Extremity (Nontraumatic) Medical Decision Making Patient presents with complaints of right shoulder pain. Patient had an x-ray of his right shoulder which showed a comminuted fracture of the neck of the right humerus. Dr. Horan was consulted. She said we could place him in a shoulder immobilizer and have him follow-up on an outpatient basis. Patient already goes to the [facility] and he says he will follow-up with the [facility]. Patient declined the need for pain medicine. He says he will try Tylenol and if he needs more [facility] Differential Diagnosis Unlikely herpes zoster, gout, cellulitis, superficial thrombophlebitis, deep venous thrombosis of upper extremity, lower extremity edema or deep vein thrombosis of lower extremity Medical Records I reviewed the patient's medical records. Lab Data I reviewed the patient's lab results. Radiology Impressions Shoulder X-Ray 02/23/23 19:27 IMPRESSION: Comminuted fracture of the neck of the right humerus. Discharge Plan Discharge Patient Disposition: Home Clinical Impression: Fracture of humerus Qualifiers: Encounter type: initial encounter Humerus Location: surgical neck Fracture type: closed Fracture alignment: displaced Laterality: right Condition: Stable Prescriptions: No Action cetirizine [All Day Allergy (cetirizine)] 10 mg tablet 5 mg PO DAILY PRN (Reason: Allergy Symptoms) chlorhexidine gluconate 0.12 % mouthwash 15 ml buccal DAILY cholecalciferol (vitamin D3) 50 mcg (2,000 unit) capsule 50 mcg PO DAILY clonidine HCl 0.3 mg tablet 0.3 mg PO TID Hold Instructions: unless instructed to resume latanoprost (PF) 0.005 % drops 1 drp ophthalmic (eye) DAILY mupirocin 2 % ointment 1 applic topical BID triamcinolone acetonide 0.1 % cream 1 applic topical .PRN acetaminophen 325 mg capsule 325 mg PO QID PRN (Reason: Pain) amlodipine 5 mg tablet 5 mg PO BID aspirin 81 mg tablet,delayed release (DR/EC) 81 mg PO DAILY docusate sodium 100 mg capsule 100 mg PO TID fluticasone propionate [Allergy Relief (fluticasone)] 50 mcg/actuation spray,suspension 2 spray intranasal DAILY Rx Instructions: administer into each nostril folic acid 1 mg tablet 1 mg PO DAILY guaifenesin 400 mg tablet 400 mg PO Q4H PRN (Reason: Cough) sennosides [Evac-U-Gen (sennosides)] 8.6 mg tablet 8.6 mg PO BID famotidine 20 mg tablet 20 mg PO BID tamsulosin 0.4 mg capsule 0.4 mg PO BID Qty: 180 1RF allopurinol 100 mg tablet 100 mg PO DAILY fluticasone propion-salmeterol [Wixela Inhub] 100-50 mcg/dose blister with device 1 inh inhalation BID sulfamethoxazole-trimethoprim 800-160 mg tablet 1 tab PO BID Qty: 28 1RF albuterol sulfate 90 mcg/actuation Hfa Aerosol Inhaler 2 puff INHALATION QID PRN (Reason: Shortness Of Breath) Fish Oil 300-1,000 mg Capsule 1 cap PO BID carboxymethylcell-glycerin(PF) 0.5-0.9 % Drops 1 drp OPHTHALMIC (EYE) QID atenolol 100 mg tablet 50 mg PO 1XD Qty: 0 0RF pravastatin 20 mg tablet 10 mg PO DAILY Qty: 0 0RF insulin glargine 100 unit/mL (3 mL) insulin pen 12 unit SUBCUT BEDTIME Qty: 0 0RF losartan 100 mg Tablet 100 mg PO DAILY Discharge Orders: Discharge ED (Routine); Ordered 02/23/23 Ordered By: Nilton Davies Referrals: Haris Parsons DO [Primary Care Provider] - Patient Instructions: Proximal Humerus Fracture (ED) Activity Restrictions/Additional Instructions: Please wear shoulder immobilizer at all times. [facility] and [facility]. Coding Level of Care Code ED Electrician'S Assistant for Aurea Stevens
[2023-02-23 21:18] VITALS: BP 133/79; PULSE 113; RESP 14; TEMP 36.8; O2SAT 98
== END 2023-02-23 21:19 | disposition home or self-care (01) ==
PROVIDERS: Emergency Provider Emergency Medicine; PCP Emergency Medicine Emergency Medical Services
DX: S42.211A Unspecified displaced fracture of surgical neck of right humerus, initial encounter for closed fracture (principal); Z79.82 Long term (current) use of aspirin; Z79.4 Long term (current) use of insulin; E11.22 Type 2 diabetes mellitus with diabetic chronic kidney disease; I12.9 Hypertensive chronic kidney disease with stage 1 through stage 4 chronic kidney disease, or unspecified chronic kidney disease; N18.9 Chronic kidney disease, unspecified; X50.1XXA Overexertion from prolonged static or awkward postures, initial encounter
CPT/HCPCS: 29240; 73030; 99283

== ENCOUNTER 2023-02-25 11:48 | Outpatient (CLI) | payer OTHER, SELFPAY | END 2023-02-25 11:49 | disposition home or self-care (01) | LOC: SPT 11:48 | PROVIDERS: PCP Emergency Medicine Emergency Medical Services; Visit Provider Specialist | DX: Z46.89 Encounter for fitting and adjustment of other specified devices (principal); S42.301D Unspecified fracture of shaft of humerus, right arm, subsequent encounter for fracture with routine healing; X58.XXXD Exposure to other specified factors, subsequent encounter | CPT/HCPCS: 24530; 97760; 99204; A4565 ==

== ENCOUNTER 2023-02-26 07:56 | Outpatient (CLI) | payer OTHER, SELFPAY ==
[2023-02-26 09:09] LABS: 25 Hydroxy Vitamin D 23 ng/mL (30-100)
[2023-03-04 12:44] LABS: Vit D 1,25 (Oh)2, Total 110 pg/mL (18-72); Vit D2 1,25 (Oh)2 <8 pg/mL; Vit D3 1,25 (Oh)2 110 pg/mL
== END 2023-02-26 07:57 | disposition home or self-care (01) ==
LOC: LAB 07:58
PROVIDERS: PCP Emergency Medicine Emergency Medical Services; Visit Provider Registered Nurse
DX: N18.4 Chronic kidney disease, stage 4 (severe) (principal)
CPT/HCPCS: 36415; 82306; 82652

== ENCOUNTER 2023-03-04 07:19 | Outpatient (CLI) | payer OTHER, SELFPAY ==
--- NOTE | 2023-03-04 07:30 | CT_ITS ---
WS: [id number] CT RIGHT SHOULDER, NONCONTRAST. HISTORY: fracture Technique: All [facility] scans at [facility] use at least one of these dose optimization techniques: automated exposure control; mA and/or kV adjustment per patient size (includes targeted exams where dose is matched to clinical indication); or iterative reconstruction. DLP: 425.14 mGy.cm COMPARISON: Radiographs 02/23/2023, chest CT 04/07/2017 and 04/15/2022. Markedly comminuted fracture involving the proximal RIGHT humerus. Fracture begins in the proximal hu merus and extends approximately 4 cm in length with multiple bony fragments and displacement. Highly suspicious for marrow replacement process. There is increased soft tissue thickening in the central m arrow cavity with expansion. There is an additional soft tissue surrounding the proximal humerus high ly suspicious for neoplastic process. Some of this may be hematoma related to the fracture. Multiple bony fragments are significantly displaced into the adjacent soft tissues. Humeral head is high riding abutting the undersurface of the acromion. Moderate AC joint narrowing an d arthropathy. Subtle lucency within the inferior glenoid. There is pleural thickening in the lower RIGHT thorax extending anterior to the vertebral bodies to e ncase the descending thoracic aorta. This is very slight nodular component measuring 1.4 cm. These fi ndings were described on a chest CT of 04/15/2022. The nodule associated with the pleural thickening w as not present on the prior exam. Enlarged RIGHT axillary lymph nodes measuring up to 2.[address]/CT shoulder RT wo con* [id number] IMPRESSION: 1. Markedly comminuted fracture with fracture fragment displacement involving the proximal RIGHT humerus. Marrow appears expanded with increased soft tissue surrounding the proximal humerus. Highly suspicious for pathological fracture a nd underlying neoplasm. 2. Adjacent RIGHT axillary lymphadenopathy with the largest lymph node measuri ng 2.5 cm. 3. Marked pleural thickening in the RIGHT lower lobe extends anterior to the v ertebral bodies and encases aorta. This pleural thickening was present on 2021 and 04/07/2017. There is an adjacent nodule measuring 1.4 cm in the RIGHT lo wer lung field which was not present on the study of 04/15/2022. 4. No additional suspicious bone lesions. There is a tiny lucency in the RIGHT glenoid which could be degenerative or early neoplastic lesion. Recommend additional imaging to evaluate etiology and source of this probable p athological fracture involving the RIGHT shoulder. CT imaging of the chest, abd omen and pelvis with IV and oral contrast and/or PET/CT imaging recommended.
== END 2023-03-04 07:20 | disposition home or self-care (01) ==
PROVIDERS: PCP Emergency Medicine Emergency Medical Services; Visit Provider Specialist
DX: S42.201A Unspecified fracture of upper end of right humerus, initial encounter for closed fracture (principal); X58.XXXA Exposure to other specified factors, initial encounter; R59.0 Localized enlarged lymph nodes; J92.9 Pleural plaque without asbestos; R91.1 Solitary pulmonary nodule; R93.7 Abnormal findings on diagnostic imaging of other parts of musculoskeletal system
CPT/HCPCS: 73200

== ENCOUNTER 2023-03-11 13:19 | Outpatient (CLI) | payer OTHER, SELFPAY ==
--- NOTE | 2023-03-11 13:45 | MR_ITS ---
WS: [id number] MRI RIGHT HUMERAL without CONTRAST. COMPARISON: Prior CT shoulder 03/04/2023 and radiographs 02/23/2023 Multiplanar, multisequence imaging is performed without contrast. Patient unable to receive IV contr ast due to renal function. There is a large destructive soft tissue mass previously described involving the proximal RIGHT humer us. There is a pathological fracture with additional extensive marrow replacement involving the humer al head into the proximal humerus. There is loss of the normal bony cortex at the femoral head and ne ck. There is abnormal signal extending into the soft tissues and muscles surrounding the proximal hum erus consistent with tumor extension. Variable signal intensity with both areas of increased and decr eased signal. Without IV contrast the enhancement pattern cannot be commented on. Tumor involvement e xtends over a length of at least 10.4 cm x 7.5 cm. Additional degenerative glenohumeral joint space narrowing. Complete tear of the rotator cuff tendons . Humeral head is high riding. Seen best on the T1 sequences are enlarged lymph nodes The RIGHT axilla and subpectoralis location. These lymph nodes measure up to 3.3 cm. MR/MR humerus RT wo con* [id number] IMPRESSION: 1. Destructive soft tissue mass involving the proximal RIGHT humerus with path ological fracture. Variable signal intensity within this mass. Postcontrast dequan ging not performed due to patient's renal function. Suspect pathological fractu re. Sampling of the soft tissue tumor and possible bone recommended. Differenti al includes metastatic disease, plasmacytoma and primary bone tumor. 2. The adjacent visualized bones within the chest appear normal. 3. RIGHT axilla/chest wall lymphadenopathy. Consider PET/CT imaging also.
== END 2023-03-11 13:20 | disposition home or self-care (01) ==
PROVIDERS: PCP Emergency Medicine Emergency Medical Services; Visit Provider Internal Medicine Medical Oncology
DX: M89.8X2 Other specified disorders of bone, upper arm (principal); M84.421A Pathological fracture, right humerus, initial encounter for fracture; R59.0 Localized enlarged lymph nodes
CPT/HCPCS: 73218

== ENCOUNTER 2023-03-22 08:11 | Oncology outpatient (recurring) (ONCR) | payer OTHER, SELFPAY ==
[2023-03-08 18:45] LABS: Basophils % 0.1 %; Eosinophils # 0.1 10^3/uL (0.0-0.8); Eosinophils % 0.6 %; Hematocrit 35.7 % (42.0-52.0); Hemoglobin 11.5 g/dL (11.7-16.6); Lymphocytes # 0.5 10^3/uL (0.8-4.8); Lymphocytes % 5.5 %; Mean Corpuscular HGB Conc 32.2 g/dL (30.0-36.0); Mean Corpuscular Hemoglobin 26.3 pg (28.0-34.0); Mean Corpuscular Volume 81.7 fl (80-94); Mean Platelet Volume 10.9 fL (7.4-10.4); Monocytes # 0.7 10^3/uL (0.2-0.9); Monocytes % 7.7 %; Neutrophils # 8.16 10^3/uL (1.8-7.7); Neutrophils % 84.8 %; Nucleated Red Blood Cells % 0 %; Platelet Count 250 10^3/cmm (130-400); Red Blood Count 4.37 10^6/uL (4.1-5.3); Red Cell Distribution Width 14.3 % (12.1-15.1); White Blood Count 9.6 10^3/uL (4.0-10.0)
[2023-03-08 20:34] LABS: Alanine Aminotransferase 11 U/L (0-41); Albumin Level 3.6 g/dL (3.5-5.2); Alkaline Phosphatase 108 U/L (40-130); Anion Gap 17.4 (5-19); Aspartate Amino Transferase 13 U/L (0-40); Blood Urea Nitrogen 28 mg/dL (8-23); Calcium 12.4 mg/dL (8.5-10.5); Carbon Dioxide 22 mmol/L (22-29); Chloride 103 mmol/L (98-107); Globulin 3.3 g/dL (1.3-4.6); Glucose 87 mg/dL (65-115); Immunoglobulin IGA 213 mg/dL (70-400); Immunoglobulin IGG 910 mg/dL (700-1600); Immunoglobulin IGM 98 mg/dL (40-230); Osmolality Calculated 291 mOsm/kg (285-295); Potassium 4.4 mmol/L (3.5-5.1); Sodium 138 mmol/L (136-145); Total Bilirubin 0.6 mg/dL (0.15-1.2); Total Protein 6.9 g/dL (6.6-8.7)
[2023-03-10 09:05] LABS: PROTEIN, TOTAL 6.5 g/dL (6.1-8.1)
[2023-03-10 12:19] LABS: ALBUMIN 3.6 g/dL (3.8-4.8); ALPHA 1 GLOBULIN 0.6 g/dL (0.2-0.3); ALPHA 2 GLOBULIN 0.8 g/dL (0.5-0.9); BETA 1 GLOBULIN 0.4 g/dL (0.4-0.6); BETA 2 GLOBULIN 0.3 g/dL (0.2-0.5); GAMMA GLOBULIN 0.9 g/dL (0.8-1.7)
[2023-03-10 12:38] LABS: KAPPA LIGHT CHAIN, FREE, SERUM 60.5 mg/L (3.3-19.4); KAPPA/LAMBDA LIGHT CHAINS FREE 0.98 (0.26-1.65); LAMBDA LIGHT CHAIN, FREE, SERU 61.9 mg/L (5.7-26.3)
== END 2023-04-02 23:59 | disposition home or self-care (01) ==
PROVIDERS: Internal Medicine Medical Oncology; PCP Emergency Medicine Emergency Medical Services; Visit Provider Internal Medicine Medical Oncology
DX: N18.9 Chronic kidney disease, unspecified (principal); M89.8X0 Other specified disorders of bone, multiple sites; S42.201D Unspecified fracture of upper end of right humerus, subsequent encounter for fracture with routine healing; X58.XXXD Exposure to other specified factors, subsequent encounter; I12.9 Hypertensive chronic kidney disease with stage 1 through stage 4 chronic kidney disease, or unspecified chronic kidney disease; E11.22 Type 2 diabetes mellitus with diabetic chronic kidney disease; R59.0 Localized enlarged lymph nodes; Z12.5 Encounter for screening for malignant neoplasm of prostate
CPT/HCPCS: 36415; 80053; 82784; 83883; 84155; 84165; 85025; 86334; 99204; 99214; G0103

== ENCOUNTER 2023-03-23 06:51 | Inpatient (IN) | payer OTHER, SELFPAY ==
[2023-03-23] VITALS (17 sets, daily range): BP systolic 115–170; BP diastolic 70–105; PULSE 82–120; RESP 14–19; TEMP 36.3–37; O2SAT 96–100; BMI 26.6
--- NOTE | 2023-03-23 06:57 | ED_ITS ---
HPI - Weakness General: Chief complaint: Weakness Stated complaint: weakness Time Seen by Provider: 03/23/23 06:54 Source: patient Mode of arrival: ambulatory History of Present Illness: 72-year-old male presents emergency room complaining of generalized weakness and mild shortness of breath for the last 3 days. No specific pain or problem. Patient recently had a pathologic fracture of the left proximal humerus. He has seen oncology those notes were reviewed today they are concerned about sarcoma. He has not had a biopsy yet. He is post to be going back to see Dr. Palomares to have biopsy done. They are considering radiation to the area. He has no specific complaints this morning denies chest pain or shortness of breath. Denies hemoptysis denies any hematochezia melena hematemesis cough nemesis no abdominal pain or chest pain no symptoms. Patient does have some chronic kidney disease. MD Complaint: generalized weakness Onset (ago): day(s) Duration: constant Location: generalized Severity: mild Relieving factors: none Exacerbating factors: none Associated symptoms: Denies chest pain, chills, confusion, melena, decreased appetite, diaphoresis, dysuria, easy bruising, fever(s), headache(s), myalgias, nausea, rash, short of breath, syncope or vomiting Review of Systems Const: Reports: fatigue and malaise; Denies: fever(s), chills or diaphoresis ENMT: Denies: throat pain, ear or mastoid pain, nasal discharge or nasal congestion Card: Denies: chest pain, palpitations, irregular heart rhythm or syncope Resp: Reports: dyspnea; Denies: productive cough or non-productive cough GI: Denies: abdominal pain, nausea, vomiting or melena : Denies: dysuria, urinary frequency or urinary urgency Musc: Denies: neck pain or back pain Skin/Breast: Denies: rash or pruritus Neuro: Denies: headache(s) or confusion Jose Maria/Lymph: Denies: easy bruising PFSH ED PFSH: Medical History BPH loc w urin obs/LUTS Brain mass MRI brain from 2014 had shown enlarged, enhancing pituitary infundibulum with broad differential of neurosarcoidosis, eosinophilic granuloma, sequelae of meningitis, STONE ROUGHER lymphoma, 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 CT head 04/2022 without abnormality noted. 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, peritonealization of the ureters in 2019 Diabetes Gout Gross hematuria H/O malignant neoplasm of skin FACE H/O pilonidal cyst HTN (hypertension) Hyperuricemia Hypoglycemia Idiopathic hypersomnia Lung nodule Mediastinal mass Pleural based with mediastinal adenopathy, biopsy has been benign in the past Meningeal disorder Obstructive sleep apnea Osteoarthritis, multiple sites Phimosis Retroperitoneal fibrosis Surgical History H/O foot surgery BONE SPURS REMOVED BILATERAL FEET S/P appendectomy S/P cataract surgery S/p total knee replacement, bilateral Status post cholecystectomy Family History Mother , IN HER 70'S No problems noted. Father , AT AGE 92 No problems noted. Social History Smoking and tobacco status: never smoked Alcohol intake: never Marital status: Current occupational status: retired Physical Exam Const: COMMON NORMALS: no acute distress GENERAL APPEARANCE: cooperative and comfortable ORIENTATION/CONSCIOUSNESS: Yes awake, Yes oriented to person, Yes oriented to place and Yes oriented to time HENMT: COMMON NORMALS: normocephalic, atraumatic and hearing grossly normal bilaterally HEAD & SCALP: normocephalic and atraumatic Resp: COMMON NORMALS: normal respiratory effort, No retractions, No use of accessory muscles and clear to auscultation bilaterally AUSCULTATION: clear to auscultation bilaterally Cardio: COMMON NORMALS: regular rate, regular rhythm and No murmurs present (Cardio) RATE: regular rate RHYTHM: regular rhythm GI: COMMON NORMALS: Soft to palpation and No hepatosplenomegaly present AUSCULTATION: Yes normoactive bowel sounds PALPATION: Yes Soft to palpation, No Tenderness to palpation present (GI), No Guarding due to palpation present (GI) and Yes No hepatosplenomegaly present Extremity: OTHER: Right arm is in a sling proximally there is a moderate amount of swelling and some induration. Deformity consistent with known fracture Neuro: SENSORIUM/ORIENTATION: Yes oriented to person, Yes oriented to place and Yes oriented to time Skin: COMMON NORMALS: no rashes or lesions noted GENERAL SKIN EXAM: no rashes or lesions noted Course Vital Signs: Vital signs: Vital Signs Temperature 98.2 F 03/23/23 07:07 Pulse Rate 112 H 03/23/23 07:10 Respiratory Rate 14 03/23/23 07:10 Blood Pressure 140/92 03/23/23 07:10 Pulse Oximetry 99 03/23/23 07:10 Oxygen Delivery Me thod Room Air 03/23/23 07:10 MDM - Weakness Medical Decision Making Patient has pathologic fracture possibly sarcoma he is hypercalcemic has been generally climbing the last several weeks. He is at a critical level now recommend admission was started on cylindric acid as well as subcutaneous calcitonin and IV fluids discussed with hospitalist orders written admit to cardiac stepdown. Patient is chronic kidney disease his creatinine is at 3 2 which is slightly elevated from his usual baseline reviewing his old creatinines. He complained of the nurses about some mild shortness of breath his sat is normal but he is slightly tachycardic may require further evaluation for PE. Hospitalist will complete further testing as necessary considering the VQ scan due to his creatinine function. Medical Records I reviewed the patient's medical records. Lab Data I reviewed the patient's lab results. 03/23/23 07:24 03/23/23 07:24 Radiology Impressions Chest X-Ray 03/23/23 06:57 IMPRESSION: 1. No pneumonia or pulmonary nodule. 2. Patient has a known pathological fracture involving the proximal RIGHT humerus. Permeative infiltrative destructive pattern. Laboratory Results WBC 8.2 10^3/uL (4.0-10.0) 03/23/23 07:24 RBC 4.50 10^6/uL (4.1-5.3) 03/23/23 07:24 Hgb 11.6 g/dL (11.7-16.6) L 03/23/23 07:24 Hct 37.1 % (42.0-52.0) L 03/23/23 07:24 MCV 82.4 fl (80-94) 03/23/23 07:24 MCH 25.8 pg (28.0-34.0) L 03/23/23 07:24 MCHC 31.3 g/dL (30.0-36.0) 03/23/23 07:24 RDW 13.9 % (12.1-15.1) 03/23/23 07:24 Plt Count 183 10^3/cmm (130-400) 03/23/23 07:24 MPV 10.5 fL (7.4-10.4) H 03/23/23 07:24 Neut % (Auto) 82.6 % 03/23/23 07:24 Lymph % (Auto) 7.7 % 03/23/23 07:24 Aurora % (Auto) 7.6 % 03/23/23 07:24 Eos % (Auto) 0.9 % 03/23/23 07:24 Baso % (Auto) 0.2 % 03/23/23 07:24 Neut # (Auto) 6.79 10^3/uL (1.8-7.7) 03/23/23 07:24 Lymph # (Auto) 0.6 10^3/uL (0.8-4.8) L 03/23/23 07:24 Aurora # (Auto) 0.6 10^3/uL (0.2-0.9) 03/23/23 07:24 Eos # (Auto) 0.1 10^3/uL (0.0-0.8) 03/23/23 07:24 Baso # (Auto) 0.0 10^3/uL (0.0-0.1) 03/23/23 07:24 Nucleated RBC % (auto) 0 % 03/23/23 07:24 Nucleated RBCs # 0.0 /100WBC 03/23/23 07:24 Sodium 135 mmol/L (136-145) L 03/23/23 07:24 Potassium 3.8 mmol/L (3.5-5.1) 03/23/23 07:24 Chloride 98 mmol/L (98-107) 03/23/23 07:24 Carbon Dioxide 20 mmol/L (22-29) L 03/23/23 07:24 Anion Gap 20.8 (5-19) H 03/23/23 07:24 BUN 35 mg/dL (8-23) H 03/23/23 07:24 Creatinine 3.2 mg/dL (0.7-1.2) H 03/23/23 07:24 GFR Calculation Not Reportable 03/23/23 07:24 Glucose 153 mg/dL (65-115) H 03/23/23 07:24 Calculated Osmolality 291 mOsm/kg (285-295) 03/23/23 07:24 Calcium 14.1 mg/dL (8.5-10.5) H* 03/23/23 07:24 Total Bilirubin 0.4 mg/dL (0.15-1.2) 03/23/23 07:24 AST 13 U/L (0-40) 03/23/23 07:24 ALT 10 U/L (0-41) 03/23/23 07:24 Alkaline Phosphatase 114 U/L (40-130) 03/23/23 07:24 Total Protein 6.8 g/dL (6.6-8.7) 03/23/23 07:24 Albumin 3.4 g/dL (3.5-5.2) L 03/23/23 07:24 Globulin 3.4 g/dL (1.3-4.6) 03/23/23 07:24 Discharge Plan Discharge Patient Disposition: Admitted As Inpatient Clinical Impression: Hypercalcemia, Pathologic fracture of humerus, Diabetes, CKD (chronic kidney disease), Dyspnea Condition: Stable Prescriptions: No Action chlorhexidine gluconate 0.12 % mouthwash 15 ml buccal DAILY clonidine HCl 0.3 mg tablet 0.3 mg PO TID Hold Instructions: unless instructed to resume latanoprost (PF) 0.005 % drops 1 drp ophthalmic (eye) DAILY mupirocin 2 % ointment 1 applic topical BID triamcinolone acetonide 0.1 % cream 1 applic topical .PRN acetaminophen 325 mg capsule 325 mg PO QID PRN (Reason: Pain) amlodipine 5 mg tablet 5 mg PO BID aspirin 81 mg tablet,delayed release (DR/EC) 81 mg PO DAILY docusate sodium 100 mg capsule 100 mg PO TID fluticasone propionate [Allergy Relief (fluticasone)] 50 mcg/actuation spray,suspension 2 spray intranasal DAILY Rx Instructions: administer into each nostril guaifenesin 400 mg tablet 400 mg PO Q4H PRN (Reason: Cough) sennosides [Evac-U-Gen (sennosides)] 8.6 mg tablet 8.6 mg PO BID cetirizine [All Day Allergy (cetirizine)] 10 mg tablet 5 mg PO DAILY famotidine 20 mg tablet 20 mg PO BID tamsulosin 0.4 mg capsule 0.4 mg PO BID Qty: 180 1RF allopurinol 100 mg tablet 100 mg PO DAILY fluticasone propion-salmeterol [Wixela Inhub] 100-50 mcg/dose blister with device 1 inh inhalation BID (DME) Shoulder collar and cuff See Rx Instructions .Route .MEDSUPPLY Qty: 1 0RF Rx Instructions: As directed insulin glargine 100 unit/mL (3 mL) insulin pen 36 unit SUBCUT BEDTIME Rx Instructions: Sliding scale albuterol sulfate 90 mcg/actuation Hfa Aerosol Inhaler 2 puff INHALATION QID PRN (Reason: Shortness Of Breath) Fish Oil 300-1,000 mg Capsule 1 cap PO BID atenolol 100 mg tablet 50 mg PO 1XD Qty: 0 0RF pravastatin 20 mg tablet 10 mg PO DAILY Qty: 0 0RF losartan 100 mg Tablet 100 mg PO DAILY carboxymethylcell-glycerin(PF) 0.5-0.9 % drops 1 drp OPHTHALMIC (EYE) QID Referrals: Haris Parsons DO [Primary Care Provider] - Coding Level of Care Code 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
--- NOTE | 2023-03-23 06:57 | XR_ITS ---
WS: [id number] PORTABLE CHEST HISTORY: dyspnea/cough COMPARISON: 04/15/2022 Lungs are clear and well expanded. No pleural effusion or pneumothorax. Cardiac size: Normal. Mediastinum/Aorta: Normal mediastinum. Reidentified is a destructive bone lesion involving the proximal RIGHT humerus. Pathological fracture has been previously described. There is a moth-eaten permeative appearance of the proximal RIGHT hum erus. XR/XR chest 1V portable [id number] IMPRESSION: 1. No pneumonia or pulmonary nodule. 2. Patient has a known pathological fracture involving the proximal RIGHT holli josé miguel. Permeative infiltrative destructive pattern.
--- NOTE | 2023-03-23 06:57 | ECG_ITS ---
[facility] Test Date: 2023-03-23 Pat Name: Jason Caro Department: Room: Gender: Male Lead Level Designer: : 1950 Requested By: Yon Herring Order Number: [id number] David MD: Veronica Gaona M.D. Measurements Intervals Polo Rate: 115 P: 31 RI: 210 QRS: -10 QRSD: 88 T: -5 QT: 299 QTc: 415 Interpretive Statements SINUS TACHYCARDIA WITH FIRST DEGREE AV BLOCK VOLTAGE CRITERIA FOR LVH [MEETS CRITERIA IN ONE OF: R(aVL), S(V1), R(V5), R(V5/V6)+S(V1)] NONSPECIFIC T-WAVE ABNORMALITY Compared to ECG 02/05/2023 16:39:00 Left ventricular hypertrophy now present T-wave abnormality still present Electronically Signed On 03-23-2023 16:24:31 CDT by Veronica Gaona M.D. [email or web address]
[2023-03-23 07:29] LABS: Basophils % 0.2 %; Eosinophils # 0.1 10^3/uL (0.0-0.8); Eosinophils % 0.9 %; Hematocrit 37.1 % (42.0-52.0); Hemoglobin 11.6 g/dL (11.7-16.6); Lymphocytes # 0.6 10^3/uL (0.8-4.8); Lymphocytes % 7.7 %; Mean Corpuscular HGB Conc 31.3 g/dL (30.0-36.0); Mean Corpuscular Hemoglobin 25.8 pg (28.0-34.0); Mean Corpuscular Volume 82.4 fl (80-94); Mean Platelet Volume 10.5 fL (7.4-10.4); Monocytes # 0.6 10^3/uL (0.2-0.9); Monocytes % 7.6 %; Neutrophils # 6.79 10^3/uL (1.8-7.7); Neutrophils % 82.6 %; Nucleated Red Blood Cells % 0 %; Platelet Count 183 10^3/cmm (130-400); Red Cell Distribution Width 13.9 % (12.1-15.1); White Blood Count 8.2 10^3/uL (4.0-10.0)
[2023-03-23 07:45] LABS: Alanine Aminotransferase 10 U/L (0-41); Albumin Level 3.4 g/dL (3.5-5.2); Alkaline Phosphatase 114 U/L (40-130); Anion Gap 20.8 (5-19); Aspartate Amino Transferase 13 U/L (0-40); Blood Urea Nitrogen 35 mg/dL (8-23); Carbon Dioxide 20 mmol/L (22-29); Chloride 98 mmol/L (98-107); Globulin 3.4 g/dL (1.3-4.6); Glucose 153 mg/dL (65-115); Osmolality Calculated 291 mOsm/kg (285-295); Potassium 3.8 mmol/L (3.5-5.1); Sodium 135 mmol/L (136-145); Total Bilirubin 0.4 mg/dL (0.15-1.2); Total Protein 6.8 g/dL (6.6-8.7)
[2023-03-23 07:50] LABS: Calcium 14.1 mg/dL (8.5-10.5)
--- NOTE | 2023-03-23 08:13 | PC.PHAR ---
Addendum entered by Ibeth Xiong 03/23/23 11:32: [facility] Original Note: [facility]
[2023-03-23] MEDS: sodium chloride 0.9% 1,000 ML 999 ML IV (08:18)
[2023-03-23] MEDS: calcitonin,salmon 200 unit/mL SDV 2mL 100 UNIT SUBCUT (08:19)
[2023-03-23 08:27] LABS: Ketone (Acetest) Serum Negative (Negative)
[2023-03-23 09:52] LABS: Add Urine Microscopic? YES; Bilirubin Urine Neg (Negative); Blood Urine Neg (Negative); Glucose Urine UA Norm (Normal); Ketones Urine Negative (Negative); Leukocyte Esterase Urine 1+ (Negative); Nitrate Urine Negative (Negative); Protein Urine Trace (Negative); Specific Gravity, Urine 1.015 (1.005-1.030); Urine Appearance Clear (CLEAR); Urine Color Light yellow (Yellow); Urobilinogen Urine Norm (Negative); pH Urine 6 (5-7)
[2023-03-23 09:53] LABS: Add Urine Culture? Yes; Bacteria Urine 2+ /hpf; Hyaline Casts Urine 0-4 /lpf; Mucus Urine TRACE /hpf; Squamous Epithelial Cell Urine 0-4 /hpf (0-5)
--- NOTE | 2023-03-23 12:37 | PC.PHAR ---
pt states he takes care of his own medications pt states [facility] med list should have all his meds-pt states losartan 50mg daily and vitamin d 2,000 units daily was dced-pts [facility] med list has insulin glargine 36 units hs pt states he uses ss hs pt states he uses 25 to 28 to 36 units at bedtime-pt states he hasnt taken fish oil in a month states the mi is suppose to be sending-pt states he is still taking clonidine 0.3mg tid mi med list has dced 03/28/2023 todays date is 03/23/2023-notes are made in the pharmacy comments
--- NOTE | 2023-03-23 13:25 | P.HP_ITS ---
Providers/Chief Complaint Admitting Physician: Ilir Gutierrez Primary Care Provider: Haris Parsons DO Chief Complaint: weakness History of Present Illness Pleasant 72-year-old gentleman with a history of CKD in process of setting up biopsy of lesion suspicious for malignancy after pathological fracture on proximal right humerus, with hypercalcemia, has been having some generalized fatigue, in ER is found to have severe hypercalcemia, 14.1, albumin 3.4. Some CRISTIAN on CKD, creatinine up to 3.2, normally variable but closer to 2. Metabolic acidosis, anion gap 20.8, bicarb 20. Additionally some sinus tachycardia 100s- 100 teens. He denies chest pain. Has some exertional dyspnea, denies cough, denies hemoptysis. No lower extremity edema. He states that he previously had quite significant assessment of his hypercalcemia which sounds like preceded his pathological fracture and prompted additional evaluation by his nephrology provider who he states has done quite extensive work-up including vitamin D levels. He denies any calcium supplementation. Review of Systems Const: Reports: fatigue; Denies: fever(s), chills, body aches or malaise ENMT: Denies: throat pain, oral sores or ear or mastoid pain Card: Denies: chest pain, edema, pre-syncope or dyspnea on exertion Resp: Denies: dyspnea, productive cough, change in phlegm color or hemoptysis GI: Denies: abdominal pain, nausea, vomiting, diarrhea, constipation, hematochezia or melena : Denies: flank pain, difficulty urinating, urinary frequency or hematuria Musc: Denies: back pain, joint swelling or joint redness Skin/Breast: Denies: rash or new lesions Neuro: Denies: headache(s), numbness in extremities, weakness in extremities, dizziness, confusion or seizure-like activity Endo: Denies: polyuria or polydipsia Medications/Allergies Home Medications Medication Instructions Recorded Confirmed Last Taken Type acetaminophen 325 mg capsule 650 mg PO QID PRN Pain 11/04/20 03/23/23 Unknown History amlodipine 5 mg tablet 5 mg PO BID 11/04/20 03/23/23 Unknown History aspirin 81 mg tablet,delayed 81 mg PO BEDTIME 11/04/20 03/23/23 Unknown History release chlorhexidine gluconate 0.12 % 15 ml buccal DAILY 11/04/20 03/23/23 Unknown History mouthwash clonidine HCl 0.3 mg tablet 0.3 mg PO TID 11/04/20 03/23/23 Unknown History docusate sodium 100 mg capsule 100 mg PO TID 11/04/20 03/23/23 Unknown History fluticasone propionate 50 2 spray intranasal BEDTIME 11/04/20 03/23/23 Unknown History mcg/actuation nasal spray,suspension (Allergy Relief (fluticasone)) guaifenesin 400 mg tablet 400 mg PO Q6H PRN Congestion 11/04/20 03/23/23 Unknown History latanoprost (PF) 0.005 % eye drops 1 drp ophthalmic (eye) QPM 11/04/20 03/23/23 Unknown History mupirocin 2 % topical ointment 1 applic topical BID 11/04/20 03/23/23 Unknown History sennosides 8.6 mg tablet (Senna 17.2 mg PO BID 11/04/20 03/23/23 Unknown History Lax) triamcinolone acetonide 0.1 % 1 applic topical BID PRN Rash 11/04/20 03/23/23 Unknown History topical cream famotidine 20 mg tablet 20 mg PO BID 04/08/22 03/23/23 Unknown History tamsulosin 0.4 mg capsule 0.4 mg PO BID #180 caps 04/08/22 03/23/23 Unknown Rx albuterol sulfate 90 mcg/actuation 2 puff inhalation QID PRN 04/16/22 03/23/23 Unknown History aerosol inhaler Shortness Of Breath omega 4-qad-okm-fish oil 300 1 cap PO BID 04/16/22 03/23/23 1 Month Ago History mg-1,000 mg capsule (Fish Oil) ~02/20/23 allopurinol 100 mg tablet 200 mg PO QAM 05/28/22 03/23/23 Unknown History fluticasone 100 mcg-salmeterol 50 1 inh inhalation BID 06/17/22 03/23/23 Unknown History mcg/dose blistr powdr for inhalation (Wixela Inhub) Shoulder collar and cuff #1 ea 02/25/23 03/23/23 Unknown Rx carboxymethylcellulose 0.5 1 drp ophthalmic (eye) QID PRN Dry 03/22/23 03/23/23 Unknown History %-glycerin 0.9 % (PF) eye drops Eye(S) cetirizine 10 mg tablet (All Day 10 mg PO BEDTIME Allergy Symptoms 03/22/23 03/23/23 Unknown History Allergy (cetirizine)) atenolol 100 mg tablet 50 mg PO QAM 03/23/23 03/23/23 Unknown History hydrocodone 5 mg-acetaminophen 325 1 - 2 tab PO Q6H PRN Pain 03/23/23 03/23/23 Unknown History mg tablet insulin glargine 100 unit/mL See Rx Instructions .Route .COMPLEX 03/23/23 03/23/23 Unknown History subcutaneous solution ipratropium 20 mcg-albuterol 100 1 puff inhalation QID PRN 03/23/23 03/23/23 Unknown History mcg/actuation mist for inhalation Shortness Of Breath lidocaine 5 % topical ointment 1 applic topical TID PRN Pain 03/23/23 03/23/23 Unknown History montelukast 10 mg tablet 10 mg PO QPM 03/23/23 03/23/23 Unknown History (Singulair) potassium chloride 20 mEq 20 meq PO DAILY 03/23/23 03/23/23 Unknown History tablet,extended release pravastatin 20 mg tablet 10 mg PO QPM 03/23/23 03/23/23 Unknown History sulfamethoxazole 800 1 tab PO BID 03/23/23 03/23/23 Unknown History mg-trimethoprim 160 mg tablet (Bactrim DS) Allergies Allergy/AdvReac Type Severity Reaction Status Date / Time cephalexin Allergy Unknown Unknown Verified 03/22/23 08:23 PFSH Acute PFSH: Medical History (Updated 03/23/23 @ 14:10 by Ilir Gutierrez MD) BPH loc w urin obs/LUTS Brain mass MRI brain from 2014 had shown enlarged, enhancing pituitary infundibulum with broad differential of neurosarcoidosis, eosinophilic granuloma, sequelae of meningitis, 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 CT head 04/2022 without abnormality noted. 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, hydronephrotic and atrophic right kidney, peritonealization of the ureters in 2019 Diabetes Gout Gross hematuria H/O malignant neoplasm of skin FACE H/O pilonidal cyst HTN (hypertension) Hyperuricemia Hypoglycemia Idiopathic hypersomnia Lung nodule Male circumcision Mediastinal mass Pleural based with mediastinal adenopathy, biopsy has been benign in the past Meningeal disorder Obstructive sleep apnea Osteoarthritis, multiple sites Phimosis Retroperitoneal fibrosis Surgical History H/O foot surgery BONE SPURS REMOVED BILATERAL FEET S/P appendectomy S/P cataract surgery S/p total knee replacement, bilateral Status post cholecystectomy Family History Mother , IN HER 70'S No problems noted. Father , AT AGE 92 No problems noted. Social History Smoking and tobacco status: never smoked Alcohol intake: never Marital status: Current occupational status: retired Vitals/I&O/Wt Last Vital Signs Temp 98.2 F 03/23/23 07:07 Pulse 98 03/23/23 12:03 Resp 17 03/23/23 12:03 BP 170/105 03/23/23 12:03 Pulse Ox 96 03/23/23 12:03 O2 Del Method Room Air 03/23/23 09:30 03/22/23 03/23/23 03/23/23 22:59 06:59 14:59 Intake Total 1100 / 1100 Balance 1100 / 1100 Weight last 48 hrs Weight 77.111 kg Physical Exam Const: COMMON NORMALS: patient oriented x3 and alert GENERAL APPEARANCE: cooperative ORIENTATION/CONSCIOUSNESS: Yes awake HENMT: COMMON NORMALS: oropharynx normal Neck/C-Spine: COMMON NORMALS: no JVD Resp: COMMON NORMALS: normal respiratory effort and clear to auscultation bilaterally AUSCULTATION: clear to auscultation bilaterally Cardio: COMMON NORMALS: no JVD, regular rhythm, S1 normal heart sound present, S2 normal heart sound present and No murmurs present (Cardio) RHYTHM: regular rhythm HEART SOUNDS: S1 normal heart sound present and S2 normal heart sound present GI: COMMON NORMALS: Normal to inspection, nondistended, normoactive bowel sounds present, Soft to palpation and non-tender PALPATION: Yes Soft to palpation Extremity: COMMON NORMALS: no joint enlargement and no pedal edema OTHER: R arm in sling, R prox arm swelling Neuro: COMMON NORMALS: patient oriented x3 and moves all extremities SENSORIUM/ORIENTATION: Yes alert Skin: COMMON NORMALS: no rashes or lesions noted GENERAL SKIN EXAM: no rashes or lesions noted Data 03/23/23 07:24 03/23/23 07:24 A&P Assessment and plan (1) Hypercalcemia: Not entirely clear cause of hypercalcemia, possibly related to his malignancy, has had some prior work-up, PTH normal, 1, 25 vitamin D not elevated, 25 vitamin D appears to have 2 results from the same day both high and low. Unclear results, will repeat. Check PTH RP. Does not take calcium supplements. Appears to have symptomatic hypercalcemia complicated with CRISTIAN on CKD, fatigue. Continue IV fluid infusion. Continue calcitonin, received zoledronic acid. Follow-up calcium level. Low calcium diet. Monitor for hypocalcemia, risk of seizure. Follow-up with oncology, nephrology. (2) Sinus tachycardia: Not entirely clear cause of sinus tachycardia, states that he keeps up with hydration. Possibly secondary to metabolic acidosis. Reports some dyspnea on exertion. Denies other symptoms of PE, but discussed with him difficult to exclude, discussed with him with possible PE additional assessment by VQ scan given kidney insufficiency. Requested. (3) Metabolic acidosis: Anion gap metabolic acidosis. Possibly secondary to acute kidney injury. Does have diabetes, checked serum ketones, urine ketones, both negative. Check lactic acid. Reassess renal function. (4) Acute kidney injury superimposed on CKD: Creatinine up to 3.2. Secondary to hypercalcemia. Treat hypercalcemia as above. Follow-up renal function. Receiving fluid challenge. Check kidney ultrasound. Plan Pathological fracture right humerus Suspected malignancy right humerus: Pending arrangements for biopsy, follow-up with oncology. Other medical problems List home medications Discussed with ER physician. ER documentation reviewed. Attestations Medical Necessity Statement*: Admission anticipated over 2 midnights for assessment management of severe symptomatic hypercalcemia complicated by CRISTIAN on CKD. Diagnoses Hypercalcemia E83.52 Sinus tachycardia R00.0 Metabolic acidosis E87.20 Acute kidney injury superimposed on CKD N17.9; N18.9
[2023-03-23] MEDS: sodium chloride 0.9% 1,000 ML 150 ML IV ×2 (13:46→19:31)
--- NOTE | 2023-03-23 14:11 | US_ITS ---
WS: [id number] RENAL ULTRASOUND HISTORY: rayo COMPARISON: 11/10/2022 TECHNIQUE: 2-D and color Doppler imaging of the kidney submitted. Right kidney: 10.0 cm x 5.6 cm x 4.9 cm. Cortex: 1.3 cm Very echogenic kidney. No hydronephrosis or mass. Left kidney: 12.0 cm x 5.7 cm x 4.8 cm. Cortex: 1.0 cm Echogenic kidney. No hydronephrosis or mass. Aorta: Normal. Urinary Bladder: Minimally distended. US/US renal BI* [id number] IMPRESSION: 1. Markedly echogenic kidneys without significant atrophy. Similar to the prio r findings. Chronic medical renal disease. 2. No hydronephrosis.
[2023-03-23] MEDS: ipratropium-albuterol 3 mL Neb INHALATION ×2 (15:26→21:30)
[2023-03-23] MEDS: docusate sodium 100 mg Capsule PO ×2 (15:54→21:05)
[2023-03-23] MEDS: cloNIDine 0.1 mg Tablet 0.3 MG PO ×2 (15:54→21:06)
[2023-03-23] MEDS: enoxaparin 30 mg/0.3 mL Syringe SUBCUT (15:55)
[2023-03-23 16:21] LABS: Lactate (Lactic Acid level) 1.3 mmol/L (0.5-2.2)
[2023-03-23 16:31] LABS: Thyroid Stimulating Hormone 1.34 uIU/mL (0.27-4.20)
[2023-03-23 17:19] LABS: 25 Hydroxy Vitamin D 19 ng/mL (30-100)
[2023-03-23] MEDS: atorvastatin 40 mg Tablet 10 MG PO (17:37)
[2023-03-23] MEDS: sennosides 8.6 mg Tablet 17.2 MG PO (17:37)
[2023-03-23] MEDS: tamsulosin 0.4 mg Capsule PO (17:38)
[2023-03-23] MEDS: amlodipine 5 mg Tablet PO (17:38)
[2023-03-23] MEDS: montelukast sodium 10 mg Tablet PO (17:38)
[2023-03-23] MEDS: famotidine 20 mg Tablet PO (17:38)
[2023-03-23 17:45] LABS: Glucose Point of Care 102 mg/dL (70-110)
[2023-03-23 20:54] LABS: Glucose Point of Care 140 mg/dL (70-110)
[2023-03-23] MEDS: aspirin 81 mg EC Tablet PO (21:05)
[2023-03-23] MEDS: cetirizine 10 mg Tablet PO (21:06)
[2023-03-23] MEDS: budesonide 0.5 mg/2 mL Neb INHALATION (21:30)
[2023-03-23] MEDS: insulin glargine 100 units/1 mL 25 UNIT SUBCUT (21:40)
[2023-03-23] MEDS: calcitonin,salmon 200 unit/mL SDV 2mL 300 UNIT SUBCUT (21:40)
[2023-03-24] VITALS (9 sets, daily range): BP systolic 103–140; BP diastolic 65–88; PULSE 67–92; RESP 15–21; TEMP 36.9–37.2; O2SAT 94–97
[2023-03-24 04:00] LABS: Basophils % 0.2 %; Eosinophils % 0.6 %; Hematocrit 29.2 % (42.0-52.0); Hemoglobin 8.9 g/dL (11.7-16.6); Lymphocytes # 0.2 10^3/uL (0.8-4.8); Lymphocytes % 3.2 %; Mean Corpuscular HGB Conc 30.5 g/dL (30.0-36.0); Mean Platelet Volume 10.6 fL (7.4-10.4); Monocytes # 0.3 10^3/uL (0.2-0.9); Monocytes % 6.4 %; Neutrophils # 4.43 10^3/uL (1.8-7.7); Neutrophils % 88.6 %; Nucleated Red Blood Cells % 0 %; Platelet Count 150 10^3/cmm (130-400); Red Blood Count 3.56 10^6/uL (4.1-5.3)
[2023-03-24] MEDS: sodium chloride 0.9% 1,000 ML 150 ML IV (04:23)
[2023-03-24 04:29] LABS: Blood Urea Nitrogen 28 mg/dL (8-23); Calcium 10.8 mg/dL (8.5-10.5); Carbon Dioxide 21 mmol/L (22-29); Chloride 106 mmol/L (98-107); Glucose 86 mg/dL (65-115); Osmolality Calculated 289 mOsm/kg (285-295); Sodium 137 mmol/L (136-145)
[2023-03-24 04:31] LABS: Creatinine Clr Calc Pharmacy 26.2433
[2023-03-24] MEDS: allopurinol 100 mg Tablet 200 MG PO (05:57)
[2023-03-24] MEDS: atenolol 50 mg Tablet PO (05:58)
[2023-03-24 06:36] LABS: Glucose Point of Care 92 mg/dL (70-110)
[2023-03-24] MEDS: ipratropium-albuterol 3 mL Neb INHALATION (07:41)
[2023-03-24] MEDS: budesonide 0.5 mg/2 mL Neb INHALATION (07:58)
[2023-03-24 08:38] LABS: Glucose Point of Care 110 mg/dL (70-110)
[2023-03-24] MEDS: amlodipine 5 mg Tablet PO (08:51)
[2023-03-24] MEDS: tamsulosin 0.4 mg Capsule PO (08:51)
[2023-03-24] MEDS: sennosides 8.6 mg Tablet 17.2 MG PO (08:51)
[2023-03-24] MEDS: famotidine 20 mg Tablet PO (08:51)
[2023-03-24] MEDS: cloNIDine 0.1 mg Tablet 0.3 MG PO (08:51)
[2023-03-24] MEDS: calcitonin,salmon 200 unit/mL SDV 2mL 300 UNIT SUBCUT (08:55)
[2023-03-24] MEDS: docusate sodium 100 mg Capsule PO (08:55)
[2023-03-24 11:26] LABS: Glucose Point of Care 108 mg/dL (70-110)
--- NOTE | 2023-03-24 12:12 | P.DS_ITS ---
Discharge Providers Date of Admission: 03/23/23 12:26 Date of Discharge: March 24, 2023 Attending Provider at Admission: Ilir Gutierrez Attending Provider at Discharge: Ilir Gutierrez Primary Care Provider: Haris Parsons, Diagnoses at Discharge Discharge Diagnosis (1) Hypercalcemia: Status: Acute (2) Sinus tachycardia: Status: Acute (3) Metabolic acidosis: Status: Acute (4) Acute kidney injury superimposed on CKD: Status: Acute Other Information Additional DC diagnoses/information: Pathological fracture right humerus Suspected malignancy right humerus: Pending arrangements for biopsy with orthopedics, continue, follow-up with oncology. Other medical problems Reason for Visit Reason for Visit: weakness Brief History: Pleasant 72-year-old gentleman with a history of CKD in process of setting up biopsy of lesion suspicious for malignancy after pathological fracture on proximal right humerus, with hypercalcemia, has been having some generalized fatigue, in ER is found to have severe hypercalcemia, 14.1, albumin 3.4.? 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 Metabolic acidosis, anion gap 20.8, bicarb 20.? Additionally some sinus tachycardia 100s- 100 teens.? He denies chest pain.? Has some exertional dyspnea, denies cough, denies hemoptysis.? No lower extremity edema. He states that he previously had quite significant assessment of his hypercalcemia which sounds like preceded his pathological fracture and prompted additional evaluation by his nephrology provider who he states has done quite extensive work-up including vitamin D levels.? He denies any calcium supplementation. Hospital Course Hospital Course He was continued on calcitonin 4 mg units per kilogram twice daily. Continues on IV fluid infusion. Calcium level was rechecked and improved quite significantly this morning down to 10.8. He is feeling much better. PTHRP was requested and is pending, please follow-up. TSH was checked and normal. 25 OH vitamin D with questionable level in the past is not elevated, slightly low at 19. Please follow-up calcium level. As he has received zoledronic acid this will be active over next week or so, but he may likely require repeat doses of bisphosphonate. Please coordinate further treatments to keep calcium level down. He is also asked to reduce calcium intake in his diet. On presentation additionally with acute kidney injury superimposed on CKD likely related to hypercalcemia, creatinine up to 3.2, with improvement down to 2.5 today. Please follow-up renal function. He is asked to resume follow-up with nephrology. Metabolic acidosis on presentation, no sign of DKA, likely related to acute kidney injury, resolved today with improvement in renal function. On presentation additionally with sinus tachycardia, as he did report some exertional dyspnea was additionally assessed by VQ scan, VQ scan with intermediate probability for PE, without much single defect posterior left upper lobe. As discussed with him higher risk of VTE due to malignancy in his case, intermediate probability on VQ scan, discussed consideration of additional imaging with CTA, however, with even about 10% risk of contrast induced nephropathy he is very much concerned about trying to proceed with a CTA and so further test is not obtained. Discussing additional options with him he elects to empirically start anticoagulation currently and possibly follow-up VQ scan in 3-4 weeks to see if more definitive imaging can be obtained. Please refer him for follow-up VQ scan to help determine if he needs to continue anticoagulation. Physical Exam Narrative: He appears more energetic today. In better spirits. Const: COMMON NORMALS: patient oriented x3 and alert GENERAL APPEARANCE: cooperative ORIENTATION/CONSCIOUSNESS: Yes awake HENMT: COMMON NORMALS: oropharynx normal Neck/C-Spine: COMMON NORMALS: no JVD Resp: COMMON NORMALS: normal respiratory effort and clear to auscultation bilaterally AUSCULTATION: clear to auscultation bilaterally Cardio: COMMON NORMALS: no JVD, regular rhythm, S1 normal heart sound present, S2 normal heart sound present and No murmurs present (Cardio) RHYTHM: regular rhythm HEART SOUNDS: S1 normal heart sound present and S2 normal heart sound present GI: COMMON NORMALS: Normal to inspection, nondistended, normoactive bowel sounds present, Soft to palpation and non-tender PALPATION: Yes Soft to palpation Extremity: COMMON NORMALS: no joint enlargement and no pedal edema OTHER: R arm in sling, R prox arm swelling Neuro: COMMON NORMALS: patient oriented x3 and moves all extremities SENSORIUM/ORIENTATION: Yes alert Skin: COMMON NORMALS: no rashes or lesions noted GENERAL SKIN EXAM: no rashes or lesions noted Discharge Data Studies Completed and Pending Completed Studies During Hospitalization Category Date Time Status XR chest 1V portable [id number] Stat Exams 03/23/23 06:57 Completed NM pul vent and perfus* [id number] Routine Nuc Med 03/24/23 13:23 Completed US renal BI* [id number] Routine Ultrasound 03/23/23 14:11 Completed Pending at discharge Category Date Time Status Basic Metabolic Panel AM LABS Lab 03/25/23 04:00 Ordered Basic Metabolic Panel AM LABS Lab 03/26/23 04:00 Ordered Calcium AM LABS Lab 03/25/23 04:00 Ordered Calcium AM LABS Lab 03/26/23 04:00 Ordered Complete Blood Count w/Auto AM LABS Lab 03/25/23 04:00 Ordered Complete Blood Count w/Auto AM LABS Lab 03/26/23 04:00 Ordered Miscellaneous Test Routine Lab 03/23/23 13:55 Received PTH Related Peptide (Protein) Routine Lab 03/23/23 13:55 Received Urine Culture Stat Lab 03/23/23 09:22 Results Radiology Impressions Chest X-Ray 03/23/23 06:57 IMPRESSION: 1. No pneumonia or pulmonary nodule. 2. Patient has a known pathological fracture involving the proximal RIGHT humerus. Permeative infiltrative destructive pattern. Renal Ultrasound 03/23/23 14:11 IMPRESSION: 1. Markedly echogenic kidneys without significant atrophy. Similar to the prior findings. Chronic medical renal disease. 2. No hydronephrosis. Pulmonary Perfusion Imaging 03/24/23 13:23 IMPRESSION: Indeterminate probability for PE. Unmatched single defect posterior LEFT upper lobe. Laboratory Results WBC 5.0 10^3/uL (4.0-10.0) 03/24/23 03:32 RBC 3.56 10^6/uL (4.1-5.3) L 03/24/23 03:32 Hgb 8.9 g/dL (11.7-16.6) L 03/24/23 03:32 Hct 29.2 % (42.0-52.0) L 03/24/23 03:32 MCV 82.0 fl (80-94) 03/24/23 03:32 MCH 25.0 pg (28.0-34.0) L 03/24/23 03:32 MCHC 30.5 g/dL (30.0-36.0) 03/24/23 03:32 RDW 14.0 % (12.1-15.1) 03/24/23 03:32 Plt Count 150 10^3/cmm (130-400) 03/24/23 03:32 MPV 10.6 fL (7.4-10.4) H 03/24/23 03:32 Neut % (Auto) 88.6 % 03/24/23 03:32 Lymph % (Auto) 3.2 % 03/24/23 03:32 [place] % (Auto) 6.4 % 03/24/23 03:32 Eos % (Auto) 0.6 % 03/24/23 03:32 Baso % (Auto) 0.2 % 03/24/23 03:32 Neut # (Auto) 4.43 10^3/uL (1.8-7.7) 03/24/23 03:32 Lymph # (Auto) 0.2 10^3/uL (0.8-4.8) L 03/24/23 03:32 [place] # (Auto) 0.3 10^3/uL (0.2-0.9) 03/24/23 03:32 Eos # (Auto) 0.0 10^3/uL (0.0-0.8) 03/24/23 03:32 Baso # (Auto) 0.0 10^3/uL (0.0-0.1) 03/24/23 03:32 Nucleated RBC % (auto) 0 % 03/24/23 03:32 Nucleated RBCs # 0.0 /100WBC 03/24/23 03:32 Sodium 137 mmol/L (136-145) 03/24/23 03:32 Potassium 4.0 mmol/L (3.5-5.1) 03/24/23 03:32 Chloride 106 mmol/L (98-107) 03/24/23 03:32 Carbon Dioxide 21 mmol/L (22-29) L 03/24/23 03:32 Anion Gap 14.0 (5-19) 03/24/23 03:32 BUN 28 mg/dL (8-23) H 03/24/23 03:32 Creatinine 2.5 mg/dL (0.7-1.2) H 03/24/23 03:32 GFR Calculation Not Reportable 03/24/23 03:32 Glucose 86 mg/dL (65-115) 03/24/23 03:32 POC Glucose 108 mg/dL (70-110) 03/24/23 11:22 Calculated Osmolality 289 mOsm/kg (285-295) 03/24/23 03:32 Lactate 1.3 mmol/L (0.5-2.2) 03/23/23 13:55 Calcium 10.8 mg/dL (8.5-10.5) H 03/24/23 03:32 Total Bilirubin 0.4 mg/dL (0.15-1.2) 03/23/23 07:24 AST 13 U/L (0-40) 03/23/23 07:24 ALT 10 U/L (0-41) 03/23/23 07:24 Alkaline Phosphatase 114 U/L (40-130) 03/23/23 07:24 Total Protein 6.8 g/dL (6.6-8.7) 03/23/23 07:24 Albumin 3.4 g/dL (3.5-5.2) L 03/23/23 07:24 Globulin 3.4 g/dL (1.3-4.6) 03/23/23 07:24 25-OH Vitamin D Total 19 ng/mL (30-100) L 03/23/23 13:55 TSH 1.34 uIU/mL (0.27-4.20) 03/23/23 13:55 Urine Color Light yellow (Yellow) 03/23/23 09:22 Urine Appearance Clear (CLEAR) 03/23/23 09:22 Urine pH 6 (5-7) 03/23/23 09:22 Ur Specific [place] 1.015 (1.005-1.030) 03/23/23 09:22 Urine Protein Trace (Negative) 03/23/23 09:22 Urine Glucose (UA) Norm (Normal) 03/23/23 09:22 Urine Ketones Negative (Negative) 03/23/23 09:22 Urine Blood Neg (Negative) 03/23/23 09:22 Urine Nitrate Negative (Negative) 03/23/23 09:22 Urine Bilirubin Neg (Negative) 03/23/23 09:22 Urine Urobilinogen Norm mg/dL (Negative) 03/23/23 09:22 Ur Leukocyte Esterase 1+ (Negative) H 03/23/23 09:22 Urine RBC None /hpf (0-2) 03/23/23 09:22 Urine WBC 5-10 /hpf (0-5) H 03/23/23 09:22 Ur Squamous Epith Cells 0-4 /hpf (0-5) H 03/23/23 09:22 Amorphous Sediment Not Reportable 03/23/23 09:22 Urine Bacteria 2+ /hpf (NONE) H 03/23/23 09:22 Hyaline Casts 0-4 /lpf H 03/23/23 09:22 Urine Mucus Trace /hpf 03/23/23 09:22 Serum Ketones Negative (Negative) 03/23/23 07:24 Vitals Last Vital Signs Temp 99.0 F 03/24/23 11:56 Pulse 67 03/24/23 11:56 Resp 15 03/24/23 11:56 BP 112/68 03/24/23 11:56 Pulse Ox 96 03/24/23 11:56 O2 Del Method Room Air 03/24/23 11:56 Discharge Plan Discharge Patient Disposition: Home Condition: Stable Prescriptions: New apixaban 5 mg (74 tabs) tablets,dose pack 5 mg PO BID Qty: 74 0RF Rx Instructions: 10mg BID for 4 days then 5mg BID apixaban 5 mg tablet 5 mg PO BID Qty: 12 0RF Rx Instructions: 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 [facility] Continued chlorhexidine gluconate 0.12 % mouthwash 15 ml buccal DAILY Rx Instructions: swish and spit clonidine HCl 0.3 mg tablet 0.3 mg PO TID Hold Instructions: unless instructed to resume latanoprost (PF) 0.005 % drops 1 drp ophthalmic (eye) QPM mupirocin 2 % ointment 1 applic topical BID triamcinolone acetonide 0.1 % cream 1 applic topical BID PRN (Reason: Rash) acetaminophen 325 mg capsule 650 mg PO QID PRN (Reason: Pain) amlodipine 5 mg tablet 5 mg PO BID aspirin 81 mg tablet,delayed release (DR/EC) 81 mg PO BEDTIME docusate sodium 100 mg capsule 100 mg PO TID fluticasone propionate [Allergy Relief (fluticasone)] 50 mcg/actuation spray,suspension 2 spray intranasal BEDTIME Rx Instructions: administer into each nostril guaifenesin 400 mg tablet 400 mg PO Q6H PRN (Reason: Congestion) sennosides [Senna Lax] 8.6 mg tablet 17.2 mg PO BID cetirizine [All Day Allergy (cetirizine)] 10 mg tablet 10 mg PO BEDTIME famotidine 20 mg tablet 20 mg PO BID tamsulosin 0.4 mg capsule 0.4 mg PO BID Qty: 180 1RF allopurinol 100 mg tablet 200 mg PO QAM fluticasone propion-salmeterol [Wixela Inhub] 100-50 mcg/dose blister with device 1 inh inhalation BID (DME) Shoulder collar and cuff See Rx Instructions .Route .MEDSUPPLY Qty: 1 0RF Rx Instructions: As directed albuterol sulfate 90 mcg/actuation Hfa Aerosol Inhaler 2 puff INHALATION QID PRN (Reason: Shortness Of Breath) omega 4-say-mzo-fish oil [Fish Oil] 300-1,000 mg Capsule 1 cap PO BID carboxymethylcell-glycerin(PF) 0.5-0.9 % drops 1 drp OPHTHALMIC (EYE) QID PRN (Reason: Dry Eye(S)) insulin glargine 100 unit/mL Solution See Rx Instructions .ROUTE .COMPLEX Rx Instructions: sliding scale subcutaneously at bedtime (pt states uses anywhere from 25 to 28 to 36 units hs) [place] 5-325 mg Tablet 1 - 2 tab PO Q6H PRN (Reason: Pain) Singulair 10 mg Tablet 10 mg PO QPM lidocaine 5 % Ointment 1 applic TOPICAL TID PRN (Reason: Pain) potassium chloride 20 mEq Tablet Extended Release 20 meq PO DAILY Rx Instructions: on mondays and fridays takes 2 additional tabs ipratropium-albuterol 20-100 mcg/actuation Mist 1 puff INHALATION QID PRN (Reason: Shortness Of Breath) atenolol 100 mg tablet 50 mg PO QAM pravastatin 20 mg tablet 10 mg PO QPM Discontinued Bactrim DS 800-160 mg Tablet 1 tab PO BID Discharge Orders: Discharge Order (Routine); Ordered 03/24/23 Ordered By: Ilir Gutierrez Referrals: Oncology Providers [Provider Group] - 1 week Haris Parsons DO [Primary Care Provider] - 4-7 days Discharge Diet: As Directed Patient Instructions: Apixaban (By mouth), Hypercalcemia (GEN), Opioid Safety Activity Restrictions/Additional Instructions: 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 Reduce dietary calcium intake. Avoid any injury while on blood thinner medication, in case of minor bleeding hold pressure, do not take blood thinner medication. In case bleeding is not stopping, seek medical attention immediately. Follow-up with your primary doctor for assessment of possible PE, with intermediate probability VQ scan, please discuss referral within the [facility] for repeat V/Q study versus other testing options. Return to the hospital in case of any new or worsening symptoms. Discharge Attestations Time Spent in Discharge Care*: greater than 30 min Quality Metrics Clinical Quality Measures [ No reported AMI, CVA or VTE this stay] Coding Level of Care Code 81988 Total time (in minutes) for Discharge: 50 Diagnoses Hypercalcemia E83.52 Sinus tachycardia R00.0 Metabolic acidosis E87.20 Acute kidney injury superimposed on CKD N17.9; N18.9
--- NOTE | 2023-03-24 13:23 | NM_ITS ---
WS: [id number] NUCLEAR MEDICINE VENTILATION/PERFUSION LUNG SCAN HISTORY: assess for pe COMPARISON: Chest radiograph 03/23/2023 TECHNIQUE: Ventilation: 31.5 mCi of Technetium 99 DTPA aerosol inhaled. Perfusion: 5.1 mCi of technetium 99m MAA IV. Mild elevation of the RIGHT hemidiaphragm. There is a heterogeneous distribution of both the radionuc lide on the ventilatory and perfusion exams. Suspicious for an unmatched defect in the LEFT upper lob e in the posterior segment. NM/NM pul vent and perfus* [id number] IMPRESSION: Indeterminate probability for PE. Unmatched single defect posterior LEFT upper lobe.
--- NOTE | 2023-03-24 15:31 | PC.NURSE ---
IV removed at 14:40, patient tolerated well. Patient given verbal and written discharge information, educated on new medication and appointments, patient verbalized understanding. Vitals WNL. A&Ox4. Patient taken to parking lot via wheelchair and left facility at 14:50.
[2023-04-01 11:30] LABS: PTH Related Peptide (Protein) 12 pg/mL (11-20)
[2023-04-02 14:54] LABS: Miscellaneous Test SEE COMMENTS
== END 2023-03-24 15:00 | disposition home or self-care (01) | DRG 641 ==
LOC: ER 08:21 → CSU 12:27
PROVIDERS: Admitting Provider Internal Medicine; Emergency Provider Family Medicine; PCP Emergency Medicine Emergency Medical Services; Visit Provider Internal Medicine
DX: E83.52 Hypercalcemia (principal); N17.9 Acute kidney failure, unspecified; N13.8 Other obstructive and reflux uropathy; E87.20 Acidosis, unspecified; M84.521A Pathological fracture in neoplastic disease, right humerus, initial encounter for fracture; C40.01 Malignant neoplasm of scapula and long bones of right upper limb; I12.9 Hypertensive chronic kidney disease with stage 1 through stage 4 chronic kidney disease, or unspecified chronic kidney disease; E11.22 Type 2 diabetes mellitus with diabetic chronic kidney disease; N18.9 Chronic kidney disease, unspecified; Z79.4 Long term (current) use of insulin; N40.1 Benign prostatic hyperplasia with lower urinary tract symptoms; M10.9 Gout, unspecified; G47.33 Obstructive sleep apnea (adult) (pediatric); Z79.82 Long term (current) use of aspirin; R00.0 Tachycardia, unspecified
CPT/HCPCS: 36415; 36416; 71045; 76770; 78014; 80048; 80053; 81001; 82009; 82306; 82542; 82962; 83605; 84443; 85025; 87077; 87086; 87186; 93005; 94640; 96372; 96374; 96375; 99214; 99285; A9270; A9540; A9567; J0630; J1650; J1815; J3489; J7030; J7626

== ENCOUNTER → 2023-03-30 13:02 | Outpatient (BNVA) | payer OTHER, SELFPAY | PROVIDERS: PCP Emergency Medicine Emergency Medical Services; Visit Provider Internal Medicine | DX: R06.00 Dyspnea, unspecified (principal); R00.0 Tachycardia, unspecified | CPT/HCPCS: 99204 ==

== ENCOUNTER 2023-04-07 07:59 | Oncology outpatient (recurring) (ONCR) | payer OTHER, SELFPAY ==
[2023-04-07 09:00] VITALS: BP 114/79; PULSE 124; RESP 20; TEMP 36.3; O2SAT 97
[2023-04-07 09:15] LABS: Basophils % 0.2 %; Eosinophils % 0.2 %; Hematocrit 30.4 % (42.0-52.0); Lymphocytes # 0.3 10^3/uL (0.8-4.8); Lymphocytes % 2.8 %; Mean Corpuscular HGB Conc 32.9 g/dL (30.0-36.0); Mean Platelet Volume 10.2 fL (7.4-10.4); Monocytes # 0.9 10^3/uL (0.2-0.9); Monocytes % 7.3 %; Neutrophils # 10.61 10^3/uL (1.8-7.7); Neutrophils % 88.3 %; Nucleated Red Blood Cells % 0 %; Platelet Count 225 10^3/cmm (130-400); Red Blood Count 3.85 10^6/uL (4.1-5.3); Red Cell Distribution Width 15.7 % (12.1-15.1)
[2023-04-07 09:31] LABS: Alanine Aminotransferase 9 U/L (0-41); Albumin Level 3.2 g/dL (3.5-5.2); Alkaline Phosphatase 101 U/L (40-130); Anion Gap 19.1 (5-19); Aspartate Amino Transferase 12 U/L (0-40); Blood Urea Nitrogen 44 mg/dL (8-23); Calcium 9.3 mg/dL (8.5-10.5); Carbon Dioxide 17 mmol/L (22-29); Chloride 97 mmol/L (98-107); Globulin 2.7 g/dL (1.3-4.6); Glucose 202 mg/dL (65-115); Osmolality Calculated 285 mOsm/kg (285-295); Potassium 4.1 mmol/L (3.5-5.1); Sodium 129 mmol/L (136-145); Total Bilirubin 0.4 mg/dL (0.15-1.2); Total Protein 5.9 g/dL (6.6-8.7)
== END 2023-05-03 23:59 | disposition home or self-care (01) ==
PROVIDERS: PCP Emergency Medicine Emergency Medical Services; Visit Provider Internal Medicine Medical Oncology
DX: Z12.5 Encounter for screening for malignant neoplasm of prostate (principal); S42.201D Unspecified fracture of upper end of right humerus, subsequent encounter for fracture with routine healing; X58.XXXD Exposure to other specified factors, subsequent encounter; M89.8X9 Other specified disorders of bone, unspecified site
CPT/HCPCS: 36415; 80053; 85025; 99214

== ENCOUNTER 2023-04-26 12:14 | Oncology outpatient (recurring) (ONCR) | payer OTHER, SELFPAY ==
[2023-04-26 12:20] VITALS: BP 128/72; PULSE 147; RESP 18; TEMP 36.6; O2SAT 98
[2023-04-26 12:37] LABS: Basophils # 0.1 10^3/uL (0.0-0.1); Basophils % 0.3 %; Eosinophils # 0.1 10^3/uL (0.0-0.8); Eosinophils % 0.3 %; Hematocrit 28.4 % (42.0-52.0); Hemoglobin 8.7 g/dL (11.7-16.6); Lymphocytes % 6.1 %; Mean Corpuscular HGB Conc 30.6 g/dL (30.0-36.0); Mean Corpuscular Hemoglobin 24.9 pg (28.0-34.0); Mean Corpuscular Volume 81.4 fl (80-94); Mean Platelet Volume 10.3 fL (7.4-10.4); Monocytes # 1.2 10^3/uL (0.2-0.9); Monocytes % 7.7 %; Neutrophils # 12.72 10^3/uL (1.8-7.7); Nucleated Red Blood Cells % 0 %; Platelet Count 309 10^3/cmm (130-400); Red Blood Count 3.49 10^6/uL (4.1-5.3); Red Cell Distribution Width 16.6 % (12.1-15.1); White Blood Count 15.5 10^3/uL (4.0-10.0)
[2023-04-26 13:11] LABS: Alanine Aminotransferase 8 U/L (0-41); Albumin Level 2.9 g/dL (3.5-5.2); Alkaline Phosphatase 89 U/L (40-130); Anion Gap 21.1 (5-19); Aspartate Amino Transferase 18 U/L (0-40); Blood Urea Nitrogen 31 mg/dL (8-23); Calcium 9.9 mg/dL (8.5-10.5); Carbon Dioxide 19 mmol/L (22-29); Chloride 96 mmol/L (98-107); Glucose 123 mg/dL (65-115); Osmolality Calculated 282 mOsm/kg (285-295); Potassium 4.1 mmol/L (3.5-5.1); Sodium 132 mmol/L (136-145); Total Bilirubin 0.4 mg/dL (0.15-1.2); Total Protein 4.9 g/dL (6.6-8.7)
== END 2023-05-03 23:59 | disposition home or self-care (01) ==
LOC: ONCMED 12:16
PROVIDERS: PCP Emergency Medicine Emergency Medical Services; Visit Provider Internal Medicine Medical Oncology
DX: C83.38 Diffuse large B-cell lymphoma, lymph nodes of multiple sites; E83.52 Hypercalcemia
CPT/HCPCS: 36415; 80053; 85025; 99214; 99215

== ENCOUNTER 2023-05-08 06:07 | Outpatient (CLI) | payer OTHER, SELFPAY ==
--- NOTE | 2023-05-08 09:00 | PETR_ITS ---
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 ; Additional info: Staging dlbcl LABS AND CLINICAL REPORTS: Glucose: 93 mg/dl Treatment strategy for malignancy (PET staging): Initial Staging (PI) TECHNIQUE: Imaging protocol: Following at least four-hour fasting and following the injection of radiopharmaceutical, low dose CT images were obtained. Then, PET images were obtained. Attenuation corrected images were constructed using the CT scan. Fused images of PET and CT were reviewed. The standardized uptake values (SUV) reported below are maximum values within a region of interest, expressed in gm/ml. Exam includes orbital meatal line to mid-thigh. Radiopharmaceutical: 15.3 mCi F-18 FDG (Fluorodeoxyglucose), IV. Time of imaging post radiopharmaceutical administration: 1 hour Injection site: Left antecubital vein COMPARISON: CT kidney stone [id number] 04/16/2022 8:32 AM FINDINGS: Brain: Visualized brain has normal physiologic uptake. Pharynx: No abnormal uptake. Larynx: No abnormal uptake. Lungs, pleura and trachea: Irregular shaped consolidations in the bilateral lower lobes larger on the right side with maximum uptake of 20.5 SUV on the right side and 18 SUV on the left side are compatible with lymphomatous involvement. There are minimal bilateral pleural effusions. Heart: Normal physiologic uptake. Mediastinal space: See below in lymph nodes . Liver: No abnormal uptake. Gallbladder and bile ducts: No abnormal uptake. Status post cholecystectomy. There is pneumobilia. Pancreas: No abnormal uptake. Spleen: There are 3 FDG avid nodules in the spleen measuring up to 2.5 cm in size with the highest uptake of 11.9 SUV. Adrenal glands: No abnormal uptake. No nodules. Kidneys and ureters: Severe atrophy of the right kidney with no excretion. Mild atrophy of the left kidney with no hydronephrosis with diminished parenchymal uptake and no obvious excretion within the collecting system. Stomach and bowel: There are FDG avid findings in the small bowel suggestive of direct lymphomatous involvement (about 2 cm long focus measuring 9.6 SUV anteriorly in the upper abdomen on axial image 88; about 5 cm long segment in the right lateral abdomen on axial image 100 with the highest uptake of 12.2 SUV; about 5.5 cm long segment anteriorly in the midline in the lower abdomen on axial image 130 with uptake of 13.4 SUV). No bowel obstruction. No abnormal uptake in the stomach or in the colon. Intraperitoneal and retroperitoneal spaces: No abnormal uptake. No ascites. Urinary bladder: Lower than expected uptake in the urine (10.6 SUV) suggestive of impaired renal function. Reproductive: No abnormal uptake. The prostate is mildly enlarged. Vasculature: No abnormal uptake. Lymph nodes: Most bulky right axillary lymphadenopathy is difficult to differentiate from adjacent extranodal soft tissue mass with maximum uptake of 18.8 SUV. Conglomerate of right supraclavicular lymph nodes measures 17.2 SUV. In addition, there are multiple small FDG avid lymph nodes compatible with lymphomatous involvement (left submandibular lymph node on axial image 25 with uptake of 5 SUV; left supraclavicular lymph node on axial image 32 with uptake of 3.1 SUV; 1 cm left axillary lymph node on axial image 48 with uptake of 9.3 SUV; middle mediastinal focus on axial image 57 with uptake of 12.9 SUV; 1.5 cm perigastric lymph node on axial image 78 with uptake of 5.5 SUV; a cluster of mesenteric lymph nodes on axial image 111 measuring up to 1 cm with uptake of 5.7 SUV. Bones/joints: There is pathologic fracture of the right humeral neck directly involved by the lytic process due to lymphoma. Soft tissues: Large lymphomatous mass in the right shoulder extending into the right upper arm predominantly anteriorly, into upper chest wall, the right axilla inseparable from adjacent lymphadenopathy, into the right upper back with maximum uptake of 18.4 SUV. Linear paravertebral/subpleural thickening in the lower chest extending into the retrocrural region is not FDG avid (0.8 SUV). PET/PET skulltothi INITIAL [id number] IMPRESSION: 1. Multifocal compartmental FDG avid lymphadenopathy with massive bulky disease in the right axilla and the right supraclavicular area with the highest uptake of 18.8 SUV, and multiple small FDG avid lymph nodes in the left neck, mediastinum, left axilla and the mesentery suggestive of additional lymphomatous lymph nodes. Multifocal extranodal lymphoma with involvement of soft tissues and organs as follows: -Large soft tissue mass in the right shoulder/right upper arm/right chest wall/right back with the highest uptake of 18.4 SUV; -Direct lymphomatous involvement of the right proximal humerus with lytic lesion involved with pathologic fracture of the neck; -Lung masses in the lower lobes with the with the highest uptake of 20.5 SUV; -3 implants of lymphoma in the spleen with the highest uptake of 11.9 SUV; -3 segments of small bowel involvement with the highest uptake of 13.4 SUV causing no bowel obstruction. 2. No obvious renal excretion with severe right renal atrophy. Diminished concentration of isotope in the bladder suggestive of renal insufficiency.
== END 2023-05-08 06:08 | disposition home or self-care (01) ==
LOC: RAD 05-10 06:07
PROVIDERS: PCP Emergency Medicine Emergency Medical Services; Visit Provider Internal Medicine Medical Oncology
DX: C83.30 Diffuse large B-cell lymphoma, unspecified site (principal)
CPT/HCPCS: 78815; A9552

== ENCOUNTER 2023-05-08 10:39 | Inpatient (IN) | payer OTHER, SELFPAY ==
[2023-05-08] VITALS (12 sets, daily range): BP systolic 96–112; BP diastolic 56–65; PULSE 99–140; RESP 14–22; TEMP 36.5–36.8; O2SAT 92–96; BMI 27.7
--- NOTE | 2023-05-08 10:54 | ECG_ITS ---
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 Measurements Intervals [place] Rate: 138 P: 65 [place]: 181 QRS: 5 QRSD: 90 T: 56 QT: 256 QTc: 388 Interpretive Statements SINUS TACHYCARDIA POSSIBLE ANTERIOR MYOCARDIAL INFARCTION , PROBABLY OLD [30 ms Q WAVE IN V3/V4, OR R < 0.2 mV IN V4] ABNORMAL RHYTHM ECG Compared to ECG 03/23/2023 07:11:39 Myocardial infarct finding now present First degree AV block no longer present Left ventricular hypertrophy no longer present T-wave abnormality no longer present Electronically Signed On 05-08-2023 13:09:04 CDT by Mark Colmenares M.D. [email or web address]
--- NOTE | 2023-05-08 10:56 | XRR_ITS ---
PROCEDURE INFORMATION: Exam: XR Chest Exam date and time: 05/08/2023 11:05 AM Age: 72 years old Clinical indication: Dyspnea TECHNIQUE: Imaging protocol: Radiologic exam of the chest. Views: 1 view. COMPARISON: CR XR chest 1V portable [id number] 03/23/2023 7:34 AM FINDINGS: Lungs: Unremarkable. No consolidation. Pleural spaces: Unremarkable. No pleural effusion. No pneumothorax. Heart/Mediastinum: Unremarkable. No cardiomegaly. Bones/joints: Unremarkable. No interval changes seen comparing to prior examination XR/XR chest 1V portable [id number] IMPRESSION: No acute findings.
[2023-05-08] MEDS: ipratropium-albuterol 3 mL Neb INHALATION (11:09)
[2023-05-08 11:15] LABS: Basophils % 0.2 %; Hematocrit 29.1 % (42.0-52.0); Hemoglobin 8.6 g/dL (11.7-16.6); Lymphocytes # 0.5 10^3/uL (0.8-4.8); Lymphocytes % 2.3 %; Mean Corpuscular HGB Conc 29.6 g/dL (30.0-36.0); Mean Corpuscular Hemoglobin 26.1 pg (28.0-34.0); Mean Corpuscular Volume 88.4 fl (80-94); Mean Platelet Volume 10.6 fL (7.4-10.4); Monocytes # 1.5 10^3/uL (0.2-0.9); Monocytes % 7.1 %; Neutrophils # 18.43 10^3/uL (1.8-7.7); Neutrophils % 86.1 %; Nucleated Red Blood Cells % 0 %; Platelet Count 291 10^3/cmm (130-400); Red Blood Count 3.29 10^6/uL (4.1-5.3); Red Cell Distribution Width 20.3 % (12.1-15.1); White Blood Count 21.4 10^3/uL (4.0-10.0)
[2023-05-08 11:26] LABS: INR 1.47 (0.8-1.2)
[2023-05-08 11:29] LABS: D Dimer 1.26 ug/mIFEU (0-0.59)
[2023-05-08] MEDS: aspirin 81 mg Chew Tablet 324 MG PO (11:37)
[2023-05-08] MEDS: sodium chloride 0.9% 1,000 ML 999 ML IV ×2 (11:39→18:26)
[2023-05-08 11:45] LABS: Alanine Aminotransferase 10 U/L (0-41); Albumin Level 2.8 g/dL (3.5-5.2); Alkaline Phosphatase 112 U/L (40-130); Anion Gap 29.5 (5-19); Aspartate Amino Transferase 22 U/L (0-40); Blood Urea Nitrogen 36 mg/dL (8-23); Calcium 11.2 mg/dL (8.5-10.5); Carbon Dioxide 13 mmol/L (22-29); Chloride 96 mmol/L (98-107); Glucose 87 mg/dL (65-115); NT Pro B Type Natriuretic Pept 1033 pg/mL (0-125); Osmolality Calculated 284 mOsm/kg (285-295); Potassium 5.5 mmol/L (3.5-5.1); Sodium 133 mmol/L (136-145); Total Bilirubin 0.7 mg/dL (0.15-1.2); Total Protein 4.8 g/dL (6.6-8.7)
[2023-05-08 11:46] LABS: Troponin(5th) Baseline 54 ng/L (0-15)
[2023-05-08 12:02] LABS: Glucose Point of Care 83 mg/dL (70-110)
--- NOTE | 2023-05-08 12:04 | PC.PHAR ---
[facility] on [facility]-pt states his meds are the same as when he was here a few weeks ago-pt states he takes the medications entered-medications entered are meds from previously entered med list and what pt states he takes
--- NOTE | 2023-05-08 12:55 | CTR_ITS ---
PROCEDURE INFORMATION: Exam: CT Chest Without Contrast; Diagnostic Exam date and time: 05/08/2023 1:30 PM Age: 72 years old Clinical indication: Shortness of breath; Prior surgery; Surgery date: 6+ months; Surgery type: Wiffle; Additional info: SOB TECHNIQUE: Imaging protocol: Diagnostic computed tomography of the chest without contrast. Radiation optimization: All CT scans at this facility use at least one of these dose optimization techniques: automated exposure control; mA and/or kV adjustment per patient size (includes targeted exams where dose is matched to clinical indication); or iterative reconstruction. REPORTING DATA: Count of CT and Cardiac NM exams in prior 12 months: This patient has received [address] and 0 known cardiac nuclear medicine studies in the 12 months prior to the current study. COMPARISON: PT PET^ITR SB THIGH (Adult) 05/08/2023 9:34 AM RADIATION DOSE METRICS: Total DLP (mGy-cm): 729.9 FINDINGS: Lungs: Multiple mass lesions seen in the bilateral lower lobes. In the left lower lobe there is a spiculated mass measuring 33 mm x 30 mm. Right lower lobe paravertebral region there is a mass lesion measuring 32 mm x 74 mm, There is a left lower lobe mass just posterior to the heart measuring 20 4 mm x 18 mm These lesions showed uptake of the agent on PET-CT scan examinations Pleural spaces: Posterior bilateral pleural thickening No pneumothorax. No pleural effusion. Heart: Heavy coronary artery calcifications No cardiomegaly. No pericardial effusion. Lymph nodes: Unremarkable. No enlarged lymph nodes. Vasculature: Unremarkable. No aortic aneurysm. Bones/joints: Severe dorsal spine osteoarthritis No acute fracture. Soft tissues: Large bulky soft tissue masses are seen in the right axilla and right shoulder on the left shoulder and axilla do not show these findings. The right proximal humerus is incompletely visible which shows significant bony erosions. The area of the right shoulder she has significant uptake on PET-CT examination. There is sutures in the stomach consistent with bariatric surgery Other findings: There is pneumobilia present with evidence of cholecystectomy. Atrophic right kidney. Ventral hernia the periumbilical region orifice measures 72 mm the hernia measures 21 mm x 80 mm the hernia is filled with small bowel and omental fat. A are CT/CT chest wo con [id number] IMPRESSION: 1. Bulky a mass lesions in the right shoulder area consistent with tumor. 2. Multiple masses and lung nodules in the lower lobes consistent with tumor. 3. Bony erosions of the proximal right humerus by masses in the right shoulder 4. Heavy coronary artery calcifications. 5. Pneumobilia and cholecystectomy 6. Severe osteoarthritis dorsal spine 7. Pamela umbilical ventral hernia 8. Atrophic right kidney . 9. Bariatric surgery in the stomach
--- NOTE | 2023-05-08 12:56 | ECG_ITS ---
[facility] Test Date: 2023-05-08 Pat Name: Jason Caro Department: Room: Gender: Male Maternity Nurse: : 1950 Requested By: Flex Barger Order Number: [id number] David MD: Mark Colmenares M.D. Measurements Intervals Damar Rate: 111 P: 53 AL: 177 QRS: 2 QRSD: 78 T: 48 QT: 289 QTc: 393 Interpretive Statements SINUS TACHYCARDIA LOW QRS VOLTAGE IN PRECORDIAL LEADS [QRS DEFLECTION < 1.0 mV IN CHEST LEADS] POSSIBLE ANTERIOR MYOCARDIAL INFARCTION , OF INDETERMINATE AGE [30 ms Q WAVE IN V3/V4, OR R < 0.2 mV IN V4] Compared to ECG 05/08/2023 10:54:59 Low QRS voltage now present Myocardial infarct finding still present Electronically Signed On 05-08-2023 13:15:20 CDT by Mark Colmenares M.D. [email or web address]
--- NOTE | 2023-05-08 12:57 | USR_ITS ---
PROCEDURE INFORMATION: Exam: US Duplex Lower Extremity Veins, Bilateral Exam date and time: 05/08/2023 6:00 PM Age: 72 years old Clinical indication: Swelling (edema) of limb; Lower extremity, bilateral; Additional info: R/O dvt TECHNIQUE: Imaging protocol: Real-time duplex ultrasound of the bilateral extremities with 2-D marcelo scale, color Doppler flow and spectral waveform analysis including responses to compression and other maneuvers (when performed) with image documentation. Complete exam focused on the lower extremity veins. COMPARISON: PT PET^ITR SB THIGH (Adult) 05/08/2023 9:34 AM FINDINGS: Right deep veins: Unremarkable. The common femoral, femoral, proximal profunda femoral, popliteal, posterior tibial and peroneal veins are patent without thrombus. Normal Doppler waveforms. Normal compressibility and/or augmentation response. Left deep veins: Unremarkable. The common femoral, femoral, proximal profunda femoral, popliteal, posterior tibial and peroneal veins are patent without thrombus. Normal Doppler waveforms. Normal compressibility and/or augmentation response. Superficial veins: Bilateral saphenofemoral junctions are patent without thrombus. Soft tissues: Unremarkable. US/CV venous duplex [facility] [id number] IMPRESSION: No sonographic evidence of deep vein thrombosis.
--- NOTE | 2023-05-08 13:09 | USCV_ITS ---
Jason Caro Age: 72 Gender: M : 1950 Exam Date: 05/08/2023 17:32 Ordering Phys: Iam Avelar MD Technologist: GEMA Exam Location: [facility] – [place] Indication: sob BP: / HR: 106 Rhythm: Sinus Technical Quality: Adequate MEASUREMENTS (Male / Female) Normal Values 2D ECHO LV Diastolic Diameter PLAX 5.7 cm 4.2 - 5.9 / 3.9 - 5.3 cm LV Systolic Diameter PLAX 3.6 cm IVS Diastolic Thickness 0.8 cm 0.6 - 1.0 / 0.6 - 0.9 cm IVS Systolic Thickness 1.3 cm LVPW Diastolic Thickness 0.8 cm 0.6 - 1.0 / 0.6 - 0.9 cm LVPW Systolic Thickness 1.3 cm LVOT Diameter 2.2 cm LV Ejection Fraction 2D Teich 65.7 % LV Ejection Fraction MOD 2C 56.6 % LV Ejection Fraction 2C AL 56.1 % LA Diameter 3.1 cm M-MODE Aortic Annulus Diameter 2.9 cm LA Ao Ratio MM 1.1 MV E Point Septal Separation 0.5 cm DOPPLER MV Area PHT 6.9 cm squared Mitral E to A Ratio 0.6 MV E' Velocity 45.0 cm/s Mitral E to MV E' Ratio 8.8 Mitral E to LV E' Lateral Ratio 8.2 Mitral E to LV E' Septal Ratio 9.4 TR Peak Velocity 179.0 cm/s TR Peak Gradient 12.8 mmHg TV Peak E Velocity 66.0 cm/s PV Peak Velocity 150.0 cm/s FINDINGS Left Ventricle Normal left ventricular size and systolic function, EF 56 %. No regional wall motion abnormalities. Right Ventricle The right ventricle is normal in size and function. Right Atrium The right atrium is normal in size. Left Atrium The left atrium is normal in size. Mitral Valve Mild mitral annular calcification. Aortic Valve Thickened aortic valve. Tricuspid Valve No gross abnormalities noted Pulmonic Valve No gross abnormalities noted Pericardium Normal pericardium without effusion. Aorta Mildly dilated ascending aorta measuring 3.6 cm in diameter. IVC The inferior vena cava appears normal. CONCLUSIONS Normal left ventricular size and systolic function, EF 56 %. No regional wall motion abnormalities. Mild mitral annular calcification. Thickened aortic valve with features of aortic valve sclerosis. Mildly dilated ascending aorta measuring 3.6 cm in diameter. There is no pericardial effusion. There are no intracardiac masses. No similar previous studies are available for comparison Dr Mark Colmenares MD [facility] (Electronically Signed) Final Date: 09 May 2023 13:26 S
[2023-05-08 13:30] LABS: Lactic Sepsis W/Reflex 12.9 mmol/L (0.5-2.2)
[2023-05-08 13:38] LABS: Procalcitonin 0.55 ng/mL (0-0.5)
[2023-05-08 13:48] LABS: Iron 41 ug/dL (59-158); Percent Saturation 24.5 % (20-50); Total Iron Binding Capacity 167 mcg/dl; Unsaturated Iron Binding 126 ug/dL (112-347)
--- NOTE | 2023-05-08 13:52 | P.HP_ITS ---
Providers/Chief Complaint Primary Care Provider: Haris Parsons DO Chief Complaint: sob, unable to walk, chest pain when stand History of Present Illness Jason Caro is a 72 year old male with past medical history of DLBCL, CKD with baseline creatinine of around 2.3, type 2 diabetes mellitus, hypertension, obstructive sleep apnea, BPH, retroperitoneal fibrosis presented to the ER today with worsening shortness of breath over the last 1 month. Symptoms have been ongoing and getting worse for last 1 month. He did have a VQ scan done in March 2023 which was intermediate risk for PE and he was started on Eliquis. As per patient since starting Eliquis symptoms have not improved. Shortness of breath gets worse on minimal exertion. Not aggravated or relieved on laying down. Associated with cough without expectoration. Denies any subjective feeling of fever. Denies any chest pain. Denies any personal history of CAD. Patient was getting a PET scan today and due to shortness of breath getting worse presented to the ER. In ER he was found to be tachycardic with borderline blood pressures hence was given 1 L of IV fluid bolus. Currently saturating more than 95% on room air but getting short of breath on conversation and minimal exertion. Review of Systems General: Reports: 10 or more systems reviewed and unremarkable except in HPI and below Const: Denies: fever(s), chills, body aches, change in appetite, change in weight, malaise, night sweats, diaphoresis, change in sleep pattern, daytime sle epiness or snoring Eyes: Denies: change in vision, blurry vision, photophobia, eye discomfort or eye discharge ENMT: Denies: throat pain, enlarged tonsils, hoarseness, mouth pain, oral sores, dry mouth, tinnitus, nasal congestion or post nasal drip Card: Denies: chest pain, palpitations, irregular heart rhythm, edema, swelling of feet/ankles, lightheadedness, syncope, pre-syncope, dyspnea on exertion, orthopnea, leg pain with exertion or acrocyanosis Resp: Denies: dyspnea, productive cough, non-productive cough, wheezing, stridor, pain on inspiration, change in phlegm color, hemoptysis or chest congestion GI: Denies: abdominal pain, nausea, vomiting, hematemesis, coffee ground emesis, dysphagia, heartburn, diarrhea, constipation, bloating, GI cramping, change in bowel habits, pain on defecation, hematochezia or melena : Denies: flank pain, difficulty urinating, dysuria, urinary frequency, urinary urgency, urinary hesitancy, urinary dribbling, difficulty starting urination, change in urine stream, nocturia or hematuria Musc: Denies: neck pain, back pain, extremity pain, joint pain, joint swelling, joint redness, joint stiffness or limited range of motion Neuro: Denies: headache(s), numbness in extremities, weakness in extremities, sensory changes, lack of coordination, difficulty walking, frequent falls, dizziness, vertigo, confusion, Slurred speech present, difficulty communicating thoughts or seizure-like activity Psych: Denies: anxiety, depression, mood swings, panic attacks, hopelessness or irritability Endo: Denies: polyuria, polydipsia, tired all the time, cold intolerance, excessive sweating, flushing or heat intolerance Jose Maria/Lymph: Denies: easy bruising or easy bleeding All/Imm: Denies: tongue swelling, facial swelling or acute wheezing Medications/Allergies Home Medications Medication Instructions Recorded Confirmed Last Taken Type acetaminophen 325 mg capsule 650 mg PO QID PRN Pain 11/04/20 05/08/23 Unknown History amlodipine 5 mg tablet 5 mg PO BID 11/04/20 05/08/23 05/08/23 07:00 History aspirin 81 mg tablet,delayed 81 mg PO BEDTIME 11/04/20 05/08/23 05/07/23 History release chlorhexidine gluconate 0.12 % 15 ml buccal DAILY 11/04/20 05/08/23 Unknown History mouthwash clonidine HCl 0.3 mg tablet 0.3 mg PO TID 11/04/20 05/08/23 05/08/23 07:00 History docusate sodium 100 mg capsule 100 mg PO TID 11/04/20 05/08/23 05/08/23 History fluticasone propionate 50 2 spray intranasal BEDTIME 11/04/20 05/08/23 05/07/23 History mcg/actuation nasal spray,suspension (Allergy Relief (fluticasone)) guaifenesin 400 mg tablet 400 mg PO Q6H PRN Congestion 11/04/20 05/08/23 Unknown History latanoprost (PF) 0.005 % eye drops 1 drp ophthalmic (eye) QPM 11/04/20 05/08/23 05/07/23 History mupirocin 2 % topical ointment 1 applic topical BID PRN unknown 11/04/20 05/08/23 Unknown History sennosides 8.6 mg tablet (Senna 17.2 mg PO BID 11/04/20 05/08/23 05/08/23 History Lax) triamcinolone acetonide 0.1 % 1 applic topical BID PRN Rash 11/04/20 05/08/23 Unknown History topical cream famotidine 20 mg tablet 20 mg PO BID 04/08/22 05/08/23 05/08/23 07:00 History tamsulosin 0.4 mg capsule 0.4 mg PO BID #180 caps 04/08/22 05/08/23 05/08/23 Rx albuterol sulfate 90 mcg/actuation 2 puff inhalation QID PRN 04/16/22 05/08/23 Unknown History aerosol inhaler Shortness Of Breath omega 5-gve-gdu-fish oil 300 1 cap PO BID 04/16/22 05/08/23 05/08/23 History mg-1,000 mg capsule (Fish Oil) allopurinol 100 mg tablet 200 mg PO QAM 05/28/22 05/08/23 05/08/23 History fluticasone 100 mcg-salmeterol 50 1 inh inhalation BID 06/17/22 05/08/23 05/08/23 History mcg/dose blistr powdr for inhalation (Wixela Inhub) Shoulder collar and cuff #1 ea 02/25/23 05/08/23 Unknown Rx carboxymethylcellulose 0.5 1 drp ophthalmic (eye) QID PRN Dry 03/22/23 05/08/23 Unknown History %-glycerin 0.9 % (PF) eye drops Eye(S) cetirizine 10 mg tablet (All Day 10 mg PO BEDTIME Allergy Symptoms 03/22/23 05/08/23 05/07/23 History Allergy (cetirizine)) atenolol 100 mg tablet 50 mg PO QAM 03/23/23 05/08/23 05/08/23 07:00 History hydrocodone 5 mg-acetaminophen 325 1 - 2 tab PO Q6H PRN Pain 03/23/23 05/08/23 Unknown History mg tablet insulin glargine 100 unit/mL See Rx Instructions .Route .COMPLEX 03/23/23 05/08/23 Unknown History subcutaneous solution ipratropium 20 mcg-albuterol 100 1 puff inhalation QID PRN 03/23/23 05/08/23 Unknown History mcg/actuation mist for inhalation Shortness Of Breath lidocaine 5 % topical ointment 1 applic topical TID PRN Pain 03/23/23 05/08/23 Unknown History montelukast 10 mg tablet 10 mg PO QPM 03/23/23 05/08/23 05/07/23 History (Singulair) pravastatin 20 mg tablet 10 mg PO QPM 03/23/23 05/08/23 Unknown History apixaban 5 mg tablet 5 mg PO BID #12 tabs 03/24/23 05/08/23 05/08/23 07:00 Rx potassium chloride 20 mEq 20 meq PO DIRECTED 03/30/23 05/08/23 Unknown History tablet,extended release Allergies Allergy/AdvReac Type Severity Reaction Status Date / Time cephalexin Allergy Unknown Unknown Verified 04/26/23 14:15 PFSH Acute PFSH: Medical History BPH loc w urin obs/LUTS Brain mass MRI brain from 2014 had shown enlarged, enhancing pituitary infundibulum with broad differential of neurosarcoidosis, eosinophilic granuloma, sequelae of meningitis, [employer]MENT [employer] lymphoma, 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 CT head 04/2022 without abnormality noted. 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, hydronephrotic and atrophic right kidney, peritonealization of the ureters in 2019 Diabetes Gout Gross hematuria H/O malignant neoplasm of skin FACE H/O pilonidal cyst HTN (hypertension) Hyperuricemia Hypoglycemia Idiopathic hypersomnia Lung nodule Male circumcision Mediastinal mass Pleural based with mediastinal adenopathy, biopsy has been benign in the past Meningeal disorder Obstructive sleep apnea Osteoarthritis, multiple sites Phimosis Retroperitoneal fibrosis Surgical History H/O foot surgery BONE SPURS REMOVED BILATERAL FEET S/P appendectomy S/P cataract surgery S/p total knee replacement, bilateral Status post cholecystectomy Family History Mother , IN HER 70'S No problems noted. Father , AT AGE 92 No problems noted. Social History Smoking and tobacco status: never smoked Alcohol intake: never Marital status: Current occupational status: retired Vitals/I&O/Wt Last Vital Signs Temp 98.3 F 05/08/23 10:44 Pulse 110 H 05/08/23 13:23 Resp 14 05/08/23 13:23 BP 98/65 05/08/23 13:23 Pulse Ox 96 05/08/23 13:23 O2 Del Method Room Air 05/08/23 13:23 Weight last 48 hrs Weight 80.286 kg Physical Exam Narrative: General: No acute distress, AO x3 HEENT: PERRLA, pupils bilaterally equal and reactive Chest: Normal vesicular breath sounds, rhonchi with crackles present in left lower zone, right lower zone, equal good air entry bilaterally CVS: S1-S2 regular, no murmurs, tachycardia, no gallops, no rubs Abdomen: Soft, nontender, no organomegaly, bowel sounds present Neuro: No focal deficits, no facial deformity, AO x3, power 5/5 in all limbs Extremity: Right upper limb swollen, erythematous from elbow up till acromioclavicular joint Data 05/08/23 11:05 05/08/23 11:05 Other Labs: Radiology Impressions Chest X-Ray 05/08/23 10:56 IMPRESSION: No acute findings. Laboratory Results WBC 21.4 10^3/uL (4.0-10.0) H 05/08/23 11:05 RBC 3.29 10^6/uL (4.1-5.3) L 05/08/23 11:05 Hgb 8.6 g/dL (11.7-16.6) L 05/08/23 11:05 Hct 29.1 % (42.0-52.0) L 05/08/23 11:05 MCV 88.4 fl (80-94) 05/08/23 11:05 MCH 26.1 pg (28.0-34.0) L 05/08/23 11:05 MCHC 29.6 g/dL (30.0-36.0) L 05/08/23 11:05 RDW 20.3 % (12.1-15.1) H 05/08/23 11:05 Plt Count 291 10^3/cmm (130-400) 05/08/23 11:05 MPV 10.6 fL (7.4-10.4) H 05/08/23 11:05 Neut % (Auto) 86.1 % 05/08/23 11:05 Lymph % (Auto) 2.3 % 05/08/23 11:05 [place] % (Auto) 7.1 % 05/08/23 11:05 Eos % (Auto) 0.0 % 05/08/23 11:05 Baso % (Auto) 0.2 % 05/08/23 11:05 Neut # (Auto) 18.43 10^3/uL (1.8-7.7) H 05/08/23 11:05 Lymph # (Auto) 0.5 10^3/uL (0.8-4.8) L 05/08/23 11:05 [place] # (Auto) 1.5 10^3/uL (0.2-0.9) H 05/08/23 11:05 Eos # (Auto) 0.0 10^3/uL (0.0-0.8) 05/08/23 11:05 Baso # (Auto) 0.0 10^3/uL (0.0-0.1) 05/08/23 11:05 Nucleated RBC % (auto) 0 % 05/08/23 11:05 Nucleated RBCs # 0.0 /100WBC 05/08/23 11:05 PT 18.40 SECONDS (12.1-14.9) H 05/08/23 11:05 INR 1.47 (0.8-1.2) H 05/08/23 11:05 D-Dimer 1.26 ug/mIFEU (0-0.59) H 05/08/23 11:05 Sodium 133 mmol/L (136-145) L 05/08/23 11:05 Potassium 5.5 mmol/L (3.5-5.1) H 05/08/23 11:05 Chloride 96 mmol/L (98-107) L 05/08/23 11:05 Carbon Dioxide 13 mmol/L (22-29) L 05/08/23 11:05 Anion Gap 29.5 (5-19) H 05/08/23 11:05 BUN 36 mg/dL (8-23) H 05/08/23 11:05 Creatinine 2.3 mg/dL (0.7-1.2) H 05/08/23 11:05 GFR Calculation Not Reportable 05/08/23 11:05 Glucose 87 mg/dL (65-115) 05/08/23 11:05 POC Glucose 83 mg/dL (70-110) 05/08/23 11:58 Calculated Osmolality 284 mOsm/kg (285-295) L 05/08/23 11:05 Lactic Acid 12.9 mmol/L (0.5-2.2) H* 05/08/23 11:05 Calcium 11.2 mg/dL (8.5-10.5) H 05/08/23 11:05 Iron 41 ug/dL (59-158) L 05/08/23 11:05 TIBC 167 mcg/dl 05/08/23 11:05 % Saturation 24.5 % (20-50) 05/08/23 11:05 Unsat Iron Binding 126 ug/dL (112-347) 05/08/23 11:05 Total Bilirubin 0.7 mg/dL (0.15-1.2) 05/08/23 11:05 AST 22 U/L (0-40) 05/08/23 11:05 ALT 10 U/L (0-41) 05/08/23 11:05 Alkaline Phosphatase 112 U/L (40-130) 05/08/23 11:05 Troponin T Baseline 54 ng/L (0-15) H 05/08/23 11:05 NT-Pro-B Natriuret Pep 1033 pg/mL (0-125) H 05/08/23 11:05 Total Protein 4.8 g/dL (6.6-8.7) L 05/08/23 11:05 Albumin 2.8 g/dL (3.5-5.2) L 05/08/23 11:05 Globulin 2.0 g/dL (1.3-4.6) 05/08/23 11:05 Procalcitonin 0.55 ng/mL (0-0.5) H 05/08/23 11:05 TSH 4.00 uIU/mL (0.27-4.20) 05/08/23 11:05 A&P Assessment and plan (1) Dyspnea on exertion: Unknown etiology. Could be multifactorial. Could be secondary to pulmonary embolism. Patient is at high risk of PE given DLBCL, tachycardia on presentation. VQ scan done in March 2023 showed intermediate risk. Patient already on Eliquis 5 mg twice daily. Cannot rule out congestive heart failure though patient does not have lower limb edema. proBNP mildly elevated. Cycle troponins. Check echocardiogram. Cannot rule out underlying metastasis versus pneumonia. CT chest without contrast. Sputum culture. Oxygen supplementation keeping saturation over 90%. Patient will most likely need home O2 evaluation prior to discharge. Pulmicort twice daily, Xopenex, ipratropium every 6 hours. Patient already on Eliquis 5 mg twice daily. For now hold off and switch to heparin drip. Depending on the clinical picture we will plan for repeat VQ scan. Patient fouzia denton had PET scan today. Will need to hold off for 12 hours prior to repeat nuclear study. (2) Sepsis: Ruled in on admission in setting of tachycardia, leukocytosis, borderline blood pressures with acute endorgan damage with worsening renal functions. Check lactate, procalcitonin, MRSA swab, blood cultures, respiratory viral panel. Empirically for now start patient on IV vancomycin and Zosyn. Patient already received 1 L of IV fluid bolus. Repeat 1 more liter of IV fluid bolus followed by normal saline at 75 cc/h. (3) Metabolic acidosis: Most likely in setting of CKD along with possible lactic acidosis. High anion gap metabolic acidosis. No concern for DKA. Normal saline as above. Monitor BMP every 12 hourly for now. (4) DLBCL (diffuse large B cell lymphoma): Follows up with oncology as an outpatient. (5) CKD (chronic kidney disease): Baseline creatinine 2-2.4. Creatinine baseline. Medical reconciliation done for nephrotoxic drugs. Monitor BMP every 12 hourly for now. Electrode abnormality with hyperkalemia. 10 units insulin with D50 one-time. Hypercalcemia. Most likely in setting of baseline DLBCL along with dehydration. IV fluid as above. Continue to monitor. If remains elevated will check for secondary hypercalcemia with PTH and vitamin D levels. (6) HTN (hypertension): Goal blood pressure less than 140/90 mmHg. Takes amlodipine 5 mg twice daily, atenolol 50 mg daily, clonidine 0.3 mg twice daily at home. For now continue with atenolol. Hold off on amlodipine and clonidine. Qualifiers: Hypertension type: renovascular hypertension Qualified Code(s): I15.0 - Renovascular hypertension (7) Hyperkalemia: Plan Type 2 diabetes mellitus: Check A1c. Insulin sliding scale at moderate dose protocol. Continue other chronic home medications including pain medication, allopurinol, baby aspirin. Full code Carb consistent cardiac diet. Famotidine for PUD prophylaxis Heparin will suffice as DVT prophylaxis. [facility]. Attestations Medical Necessity Statement*: Admission for more than 2 midnights for further evaluation and management of significant shortness of breath at exertion while multiple etiology including pulmonary embolism and metastatic spread cannot be ruled out. Diagnoses Dyspnea on exertion R06.09 Sepsis A41.9 Metabolic acidosis E87.20 DLBCL (diffuse large B cell lymphoma) C83.30 CKD (chronic kidney disease) N18.9 HTN (hypertension) I15.0 Hypertension type: renovascular hypertension Hyperkalemia E87.5
[2023-05-08] MEDS: heparin 5,000 unit/mL INJ 1 mL IV (14:11)
[2023-05-08] MEDS: heparin drip 25,000 UNIT/500 ML PREMIX 22 UNIT IV (14:16)
[2023-05-08 14:33] LABS: Reflex Lactate Order REFLEX LACTIC ORDERD
[2023-05-08 15:17] LABS: Glucose Point of Care 76 mg/dL (70-110)
[2023-05-08 15:17] LABS: Troponin 5 2HR 44.89 ng/L (0-15); Troponin 5 2HR Delta -9.11 ABS# (0-10)
[2023-05-08] MEDS: insulin regular-human 10 UNIT in SYRINGE 1 EACH 100 UNIT IVP (15:27)
[2023-05-08] MEDS: dextrose 50% syringe 50 mL IVP (15:27)
[2023-05-08 15:31] LABS: Vitamin B12 630 pg/mL (232-1245)
[2023-05-08] MEDS: docusate sodium 100 mg Capsule PO ×2 (15:32→21:11)
[2023-05-08] MEDS: sodium chloride 0.9% 1,000 ML 75 ML IV (15:36)
--- NOTE | 2023-05-08 16:28 | ECG_ITS ---
[facility] Test Date: 2023-05-08 Pat Name: Jason Caro Department: Room: 267 Gender: Male Hypoid Gear Generator: : 1950 Requested By: Flex Barger Order Number: [id number] David MD: Mark Colmenares M.D. Measurements Intervals Welch Rate: 107 P: 147 [place]: 192 QRS: -4 QRSD: 90 T: 76 QT: 297 QTc: 396 Interpretive Statements SINUS TACHYCARDIA LOW QRS VOLTAGE IN PRECORDIAL LEADS [QRS DEFLECTION < 1.0 mV IN CHEST LEADS] POSSIBLE ANTERIOR MYOCARDIAL INFARCTION , PROBABLY OLD [30 ms Q WAVE IN V3/V4, OR R < 0.2 mV IN V4] Nonspecific T wave changes ABNORMAL RHYTHM ECG Compared to ECG 05/08/2023 13:05:05 No significant changes Electronically Signed On 05-09-2023 19:58:16 CDT by Mark Colmenares M.D. [email or web address]
[2023-05-08 17:08] LABS: Glucose Point of Care 55 mg/dL (70-110)
[2023-05-08] MEDS: tamsulosin 0.4 mg Capsule PO (17:13)
[2023-05-08] MEDS: famotidine 20 mg Tablet PO (17:13)
[2023-05-08 17:39] LABS: Glucose Point of Care 75 mg/dL (70-110)
[2023-05-08 18:02] LABS: Lactic Acid level (Lactate) 10.8 mmol/L (0.5-2.2)
[2023-05-08 18:15] LABS: Troponin 5 6HR 41.18 ng/L (0-15)
--- NOTE | 2023-05-08 18:21 | PC.NURSE ---
Blood glucose was low. Gave OJ with 6 sugar packets and ate dinner - rechecked bg currently wnl. Doctor notified.
[2023-05-08 18:25] LABS: Troponin 5 6HR Delta -12.82 ng/L (0-12)
--- NOTE | 2023-05-08 18:36 | PC.NURSE ---
Patient arrived to floor earlier in shift AAOx4, VSS, BG slightly low and gave an insulin/d50 push for K levels. Patient OOB from stretcher to bed. RUE +4 weeping edema and elevated with pillow. Placed on cardiac monitoring and placing tele strip in chart now. Running NSR to ST with prolonged RR. Placed LUE IV via US during shift. Patient educated on frequent turns. Room clean and clutter free with call light in reach and at beside.
[2023-05-08 18:51] LABS: Adenovirus Not Detected (NOT DETECT); Chlamydia Pneumoniae Not Detected (NOT DETECT); Coronavirus 229E,HKU1,NL63,OC4 Not Detected (NOT DETECT); Human Metapneumovirus Not Detected (NOT DETECT); Human Rhinovirus/Enterovirus Not Detected (NOT DETECT); Influenza A Not Detected (NOT DETECT); Influenza A H1 Not Detected (NOT DETECT); Influenza A H1-2009 Not Detected (NOT DETECT); Influenza A H3 Not Detected (NOT DETECT); Influenza B Not Detected (NOT DETECT); Mycoplasma Pneumoniae Not Detected (NOT DETECT); Parainfluenza Virus Type 1 Not Detected (NOT DETECT); Parainfluenza Virus Type 2 Not Detected (NOT DETECT); Parainfluenza Virus Type 3 Not Detected (NOT DETECT); Parainfluenza Virus Type 4 Not Detected (NOT DETECT); Respiratory Syncytial Virus A Not Detected (NOT DETECT); Respiratory Syncytial Virus B Not Detected (NOT DETECT); SARS-COV-2 Not Detected (NOT DETECT)
[2023-05-08 18:52] LABS: Amphetamines Screen Urine Negative (Negative); Barbiturates Screen Urine Negative (Negative); Benzodiazepines Screen Urine Negative (Negative); Cocaine Screen Urine Negative (Negative); Opiate Screen Urine Negative (Negative); PCP Screen Urine Negative (Negative); THC Screen Urine Negative (Negative)
[2023-05-08 18:59] LABS: Bilirubin Urine Neg (Negative); Blood Urine Neg (Negative); Glucose Urine UA Norm (Normal); Ketones Urine Negative (Negative); Leukocyte Esterase Urine Trace (Negative); Nitrate Urine Negative (Negative); Protein Urine Neg (Negative); Specific Gravity, Urine 1.015 (1.005-1.030); Urine Appearance Clear (CLEAR); Urine Color Yellow (Yellow); Urobilinogen Urine Norm (Negative); pH Urine 5 (5-7)
[2023-05-08 19:00] LABS: Add Urine Microscopic? YES
[2023-05-08 19:04] LABS: RBC Urine 0-4 /hpf (0-2); Squamous Epithelial Cell Urine 0-4 /hpf (0-5)
[2023-05-08 19:05] LABS: Bacteria Urine 2+ /hpf
[2023-05-08 19:06] LABS: WBC Urine 0-4 /hpf (0-5)
[2023-05-08] MEDS: levalbuterol 0.63 mg/3 mL Neb INHALATION (19:38)
[2023-05-08] MEDS: ipratropium 0.5 mg/2.5 mL Neb INHALATION (19:38)
[2023-05-08] MEDS: budesonide 0.5 mg/2 mL Neb INHALATION (19:38)
[2023-05-08 20:23] LABS: Glucose Point of Care 96 mg/dL (70-110)
[2023-05-08] MEDS: aspirin 81 mg EC Tablet PO (21:12)
[2023-05-08 23:41] LABS: Blood Urea Nitrogen 38 mg/dL (8-23); Calcium 10.3 mg/dL (8.5-10.5); Carbon Dioxide 13 mmol/L (22-29); Chloride 102 mmol/L (98-107); Glucose 95 mg/dL (65-115); Osmolality Calculated 291 mOsm/kg (285-295); Sodium 136 mmol/L (136-145)
[2023-05-09] VITALS (19 sets, daily range): BP systolic 99–123; BP diastolic 53–78; PULSE 72–120; RESP 14–18; TEMP 36.1–36.8; O2SAT 90–96
[2023-05-09] MEDS: sodium chloride 0.9% 1,000 ML 75 ML IV (03:25)
[2023-05-09 03:31] LABS: Basophils % 0.3 %; Eosinophils % 0.5 %; Lymphocytes # 0.4 10^3/uL (0.8-4.8); Lymphocytes % 4.8 %; Mean Corpuscular HGB Conc 29.7 g/dL (30.0-36.0); Mean Corpuscular Hemoglobin 26.4 pg (28.0-34.0); Mean Platelet Volume 10.5 fL (7.4-10.4); Monocytes # 0.6 10^3/uL (0.2-0.9); Monocytes % 7.5 %; Neutrophils # 6.21 10^3/uL (1.8-7.7); Neutrophils % 84.3 %; Nucleated Red Blood Cells % 0 %; Platelet Count 166 10^3/cmm (130-400); Red Blood Count 2.27 10^6/uL (4.1-5.3); Red Cell Distribution Width 20.4 % (12.1-15.1); White Blood Count 7.4 10^3/uL (4.0-10.0)
[2023-05-09 03:42] LABS: Partial Thromboplastin Time 57.7 SECONDS (23.9-36.7)
[2023-05-09 03:44] LABS: Hematocrit 20.2 % (42.0-52.0)
[2023-05-09 03:46] LABS: Alanine Aminotransferase 7 U/L (0-41); Albumin Level 1.9 g/dL (3.5-5.2); Alkaline Phosphatase 78 U/L (40-130); Anion Gap 23.9 (5-19); Aspartate Amino Transferase 15 U/L (0-40); Blood Urea Nitrogen 37 mg/dL (8-23); Calcium 10.1 mg/dL (8.5-10.5); Carbon Dioxide 14 mmol/L (22-29); Chloride 103 mmol/L (98-107); Globulin 1.5 g/dL (1.3-4.6); Glucose 61 mg/dL (65-115); Magnesium 1.9 mg/dL (1.7-2.3); Osmolality Calculated 289 mOsm/kg (285-295); Phosphorus 3.4 mg/dL (2.5-4.5); Potassium 4.9 mmol/L (3.5-5.1); Sodium 136 mmol/L (136-145); Total Bilirubin 0.4 mg/dL (0.15-1.2); Total Protein 3.4 g/dL (6.6-8.7)
[2023-05-09 03:48] LABS: Chol HDL Ratio 8.82 mg/dL (1.0-5.00); Cholesterol 97 mg/dL (0-200); HDL Cholesterol 11 mg/dL (60-100); LDL Cholesterol Calculated 36 mg/dL (50-129); LDL HDL Ratio 3.27 RATIO (0.00-3.22); Triglycerides 252 mg/dL (0-150)
[2023-05-09 03:53] LABS: Procalcitonin 0.57 ng/mL (0-0.5)
[2023-05-09 03:58] LABS: Lactic Sepsis W/Reflex 10.4 mmol/L (0.5-2.2)
--- NOTE | 2023-05-09 04:10 | PC.NURSE ---
HEPARIN GTT PATIENT MORNING LABS CAME BACK WITH CRITICAL H&H AND LACTIC. DR BRANCH GAVE VERBAL ORDER TO STOP GTT AT THIS TIME AND ORDERED ONE UNIT PRBC'S TO BE ADMINISTERED. WILL CONTINUE TO MONITOR.
[2023-05-09 05:14] LABS: Folate Level 2.5 ng/mL (4.5-32.2); Reflex Lactate Order REFLEX LACTIC ORDERD
[2023-05-09 06:24] LABS: Lactic Acid level (Lactate) 8.8 mmol/L (0.5-2.2)
[2023-05-09] MEDS: allopurinol 100 mg Tablet 200 MG PO (06:41)
[2023-05-09 06:42] LABS: Glucose Point of Care 85 mg/dL (70-110)
[2023-05-09] MEDS: budesonide 0.5 mg/2 mL Neb INHALATION ×2 (07:21→20:22)
[2023-05-09] MEDS: levalbuterol 0.63 mg/3 mL Neb INHALATION ×3 (07:21→20:22)
[2023-05-09] MEDS: ipratropium 0.5 mg/2.5 mL Neb INHALATION ×3 (07:21→20:22)
[2023-05-09] MEDS: sodium chloride 0.9% 100 mL Bag 50 ML IV (07:46)
[2023-05-09] MEDS: docusate sodium 100 mg Capsule PO ×3 (08:31→20:39)
[2023-05-09] MEDS: tamsulosin 0.4 mg Capsule PO ×2 (08:31→17:18)
[2023-05-09] MEDS: atenolol 50 mg Tablet PO (08:31)
[2023-05-09] MEDS: folic acid 1 mg Tablet PO ×2 (08:31→17:18)
[2023-05-09] MEDS: multivitamin therapeutic Tablet 1 TAB PO (08:31)
[2023-05-09 08:44] LABS: Estmated Average Glucose 80; Hemoglobin A1C 4.4 % (4.0-6.0)
[2023-05-09 10:10] LABS: INR 1.17 (0.8-1.2)
[2023-05-09 10:11] LABS: Fibrinogen 289 mg/dL (174-498); Hematocrit 24.7 % (42.0-52.0); Hemoglobin 7.2 g/dL (11.7-16.6); Mean Corpuscular HGB Conc 29.1 g/dL (30.0-36.0); Mean Corpuscular Hemoglobin 25.7 pg (28.0-34.0); Mean Corpuscular Volume 88.2 fl (80-94); Mean Platelet Volume 10.9 fL (7.4-10.4); Partial Thromboplastin Time 30.6 SECONDS (23.9-36.7); Platelet Count 197 10^3/cmm (130-400); Red Cell Distribution Width 20.5 % (12.1-15.1); White Blood Count 11.3 10^3/uL (4.0-10.0)
[2023-05-09 10:14] LABS: D Dimer 0.92 ug/mIFEU (0-0.59)
[2023-05-09 10:32] LABS: Absolute Segmented Neutrophil 10.8 10/cmm (1.6-7.1); Lymphocytes 2 %; Monocytes Absolute 0.2 10^3/cmm (0.1-0.6); Segmented Neutrophils 96 %; Total Cells Counted 100 (0-100)
[2023-05-09 10:33] LABS: Eosinophils 0 %; Lymphocytes Absolute 0.2 10^3/cmm (1.2-3.4)
[2023-05-09 10:34] LABS: Anisocytosis 1+; Polychromasia Trace
[2023-05-09 10:36] LABS: Macrocytosis 1+
[2023-05-09 10:37] LABS: Absolute Neutrophil 10.8 10^3/cmm (1.4-6.5); Platelet Estimate Normal (Normal)
[2023-05-09 11:16] LABS: Vitamin B12 532 pg/mL (232-1245)
[2023-05-09 11:26] LABS: Glucose Point of Care 119 mg/dL (70-110)
--- NOTE | 2023-05-09 13:35 | PM.PN ---
Subjective Subjective: No acute events overnight. Patient states he feels stable. Continues to remain on room air. Has remained hemodynamically stable though blood pressure slightly on the lower side. Denies any nausea, vomiting, headache. Blood work today appreciated for resolution of leukocytosis down to 11.3, hemoglobin down to 6 from 8.6 on admission, platelets 195, CMP showing a stable creatinine of 2.30, no electrode abnormality, lactate down to 10.4 trending down to 8.8 in 2 hours Vitals/I&O/Wt Last Vital Signs Temp 97.6 F 05/09/23 11:36 Pulse 83 05/09/23 13:25 Resp 16 05/09/23 13:25 BP 99/64 05/09/23 11:17 Pulse Ox 94 05/09/23 13:25 O2 Del Method Room Air 05/09/23 13:25 05/08/23 05/09/23 05/09/23 22:59 06:59 14:59 Intake Total 1391.167 / 2391.167 1051.05 / 3442.217 710 / 710 Balance 1391.167 / 2391.167 1051.05 / 3442.217 710 / 710 Weight last 48 hrs Weight 80.286 kg Physical Exam Narrative: General: No acute distress, AO x3, pallor present. HEENT: PERRLA, pupils bilaterally equal and reactive Chest: Normal vesicular breath sounds, rhonchi with crackles present in left lower zone, right lower zone, equal good air entry bilaterally CVS: S1-S2 regular, no murmurs, tachycardia, no gallops, no rubs Abdomen: Soft, nontender, no organomegaly, bowel sounds present Neuro: No focal deficits, no facial deformity, AO x3, power 5/5 in all limbs Extremity: Right upper limb swollen, erythematous from elbow up till acromioclavicular joint Data 05/09/23 09:27 05/09/23 02:56 Micro: Microbiology 05/09/23 11:39 Occult Blood (FIT) - Final Stool - Stool Aspirate 05/08/23 15:00 MRSA Culture - Final Nose 05/08/23 18:34 Bacterial Antigens - Final Urine Kidney 05/08/23 18:34 Legionella Urinary Antigen - Final Unknown Source 05/08/23 17:01 Blood Culture - Preliminary Blood SPECIMEN COLLECTED 05/08/23 16:40 Blood Culture - Preliminary Blood SPECIMEN COLLECTED A&P Assessment and plan (1) Dyspnea on exertion: Unknown etiology. Most likely a combination of anemia along with consolidation versus pulmonary mass. Could be secondary to pulmonary embolism but patient already on full dose anticoagulation with Eliquis 5 mg twice daily. Echocardiogram done shows an EF 56% without regional wall motion, mitral, and aortic valve with mild sclerosis. CT chest results appreciated for multiple masses and lung nodules in lower lobes consistent with tumor. Cannot rule out postobstructive pneumonia. Sputum culture not collected. MRSA is negative. For now hold off on vancomycin and continue with empiric Zosyn. If patient remains afebrile for next 24 hours then convert to oral antibiotics. Oxygen supplementation keeping saturation over 90%. Patient will most likely need home O2 evaluation prior to discharge. Pulmicort twice daily, Xopenex, ipratropium every 6 hours. (2) Sepsis: Ruled in on admission in setting of tachycardia, leukocytosis, borderline blood pressures with acute endorgan damage with worsening renal functions. Lactate elevated. Most likely in setting of significant tumor bulk along with hypoxia on exertion. Continue with IV fluids at 75 cc/h. (3) Metabolic acidosis: Most likely in setting of CKD along with elevated lactate. High anion gap metabolic acidosis. No concern for DKA. Normal saline as above. Monitor BMP daily. (4) DLBCL (diffuse large B cell lymphoma): Follows up with oncology as an outpatient. (5) CKD (chronic kidney disease): Baseline creatinine 2-2.4. Creatinine baseline. Medical reconciliation done for nephrotoxic drugs. Monitor BMP every 12 hourly for now. Electrode abnormality has resolved. With hyperkalemia. (6) HTN (hypertension): Goal blood pressure less than 140/90 mmHg. Blood pressure soft. Takes amlodipine 5 mg twice daily, atenolol 50 mg daily, clonidine 0.3 mg twice daily at home. For now continue with atenolol. Hold off on amlodipine and clonidine. Qualifiers: Hypertension type: renovascular hypertension Qualified Code(s): I15.0 - Renovascular hypertension (7) Hyperkalemia: (8) Anemia: Keep hemoglobin around 8. Iron studies appreciated for anemia of chronic disease, low folate level. B12 pending. Anemia most likely in setting of DLBCL. Check stool for occult blood. Check DIC panel. Watch for bleeding. For now switch heparin to home dose of Eliquis. Transfused 2 units of PRBC. Plan Type 2 diabetes mellitus: Ruled out. A1c 4.4. Hold off on any further insulin sliding scale or carb consistent diet. Continue other chronic home medications including pain medication, allopurinol, baby aspirin. Full code Carb consistent cardiac diet. Famotidine for PUD prophylaxis Heparin will suffice as DVT prophylaxis. Admit to [facility]. Attestations Medical Necessity Statement*: Requires further hospitalization for further evaluation and management of shortness of breath in a patient with DLBCL, anemia while postobstructive pneumonia is ruled out, blood transfusions are done Diagnoses Dyspnea on exertion R06.09 Sepsis A41.9 Metabolic acidosis E87.20 DLBCL (diffuse large B cell lymphoma) C83.30 CKD (chronic kidney disease) N18.9 HTN (hypertension) I15.0 Hypertension type: renovascular hypertension Hyperkalemia E87.5 Anemia D64.9
[2023-05-09] MEDS: piperacillin-tazobactam 3.375 GM in sodium chloride 0.9% (plus) 50 ML IV ×2 (15:03→23:30)
[2023-05-09 16:43] LABS: Glucose Point of Care 86 mg/dL (70-110)
[2023-05-09 16:57] LABS: Hematocrit 28.7 % (42.0-52.0)
[2023-05-09] MEDS: apixaban 5 mg Tablet PO (17:18)
[2023-05-09] MEDS: aspirin 81 mg EC Tablet PO (20:39)
[2023-05-09 20:55] LABS: Glucose Point of Care 85 mg/dL (70-110)
[2023-05-10] VITALS (17 sets, daily range): BP systolic 87–118; BP diastolic 52–74; PULSE 78–88; RESP 15–22; TEMP 36.4–36.9; O2SAT 91–98
[2023-05-10] MEDS: sodium chloride 0.9% 1,000 ML 75 ML IV (02:52)
[2023-05-10 04:58] LABS: Basophils % 0.3 %; Eosinophils # 0.1 10^3/uL (0.0-0.8); Eosinophils % 0.5 %; Hematocrit 25.7 % (42.0-52.0); Hemoglobin 7.6 g/dL (11.7-16.6); Lymphocytes # 0.5 10^3/uL (0.8-4.8); Lymphocytes % 4.9 %; Mean Corpuscular HGB Conc 29.6 g/dL (30.0-36.0); Mean Corpuscular Hemoglobin 27.2 pg (28.0-34.0); Mean Corpuscular Volume 92.1 fl (80-94); Mean Platelet Volume 10.6 fL (7.4-10.4); Monocytes # 0.8 10^3/uL (0.2-0.9); Monocytes % 8.6 %; Neutrophils # 7.84 10^3/uL (1.8-7.7); Neutrophils % 82.1 %; Nucleated Red Blood Cells % 0 %; Platelet Count 181 10^3/cmm (130-400); Red Blood Count 2.79 10^6/uL (4.1-5.3); Red Cell Distribution Width 19.9 % (12.1-15.1); White Blood Count 9.6 10^3/uL (4.0-10.0)
[2023-05-10] MEDS: piperacillin-tazobactam 3.375 GM in sodium chloride 0.9% (plus) 50 ML IV ×3 (05:24→22:31)
[2023-05-10] MEDS: allopurinol 100 mg Tablet 200 MG PO (05:25)
[2023-05-10 05:37] LABS: Alanine Aminotransferase 7 U/L (0-41); Albumin Level 1.8 g/dL (3.5-5.2); Alkaline Phosphatase 76 U/L (40-130); Anion Gap 24.9 (5-19); Aspartate Amino Transferase 15 U/L (0-40); Blood Urea Nitrogen 46 mg/dL (8-23); Calcium 10.8 mg/dL (8.5-10.5); Carbon Dioxide 13 mmol/L (22-29); Chloride 103 mmol/L (98-107); Globulin 1.5 g/dL (1.3-4.6); Glucose 68 mg/dL (65-115); Osmolality Calculated 292 mOsm/kg (285-295); Potassium 4.9 mmol/L (3.5-5.1); Sodium 136 mmol/L (136-145); Total Bilirubin 0.4 mg/dL (0.15-1.2); Total Protein 3.3 g/dL (6.6-8.7)
[2023-05-10 06:40] LABS: Glucose Point of Care 75 mg/dL (70-110)
[2023-05-10] MEDS: budesonide 0.5 mg/2 mL Neb INHALATION ×2 (08:03→19:57)
[2023-05-10] MEDS: ipratropium 0.5 mg/2.5 mL Neb INHALATION ×3 (08:03→19:57)
[2023-05-10] MEDS: levalbuterol 0.63 mg/3 mL Neb INHALATION ×3 (08:06→19:57)
[2023-05-10] MEDS: multivitamin therapeutic Tablet 1 TAB PO (10:02)
[2023-05-10] MEDS: tamsulosin 0.4 mg Capsule PO ×2 (10:02→17:48)
[2023-05-10] MEDS: docusate sodium 100 mg Capsule PO ×3 (10:02→20:41)
[2023-05-10] MEDS: apixaban 5 mg Tablet PO ×2 (10:02→17:48)
[2023-05-10] MEDS: folic acid 1 mg Tablet PO ×2 (10:02→17:48)
[2023-05-10 11:36] LABS: Glucose Point of Care 109 mg/dL (70-110)
[2023-05-10 12:30] LABS: Reflex Lactate Order REFLEX LACTIC ORDERD
[2023-05-10 14:26] LABS: Lactic Acid level (Lactate) 10.9 mmol/L (0.5-2.2)
--- NOTE | 2023-05-10 14:55 | P.PN_ITS ---
Subjective Subjective: No acute events overnight. Patient complains of dizziness on standing up. Blood pressures found to be borderline normal. Denies any nausea, vomiting, headache. Continues to complain of difficulty in breathing on minimal exertion. Denies any bleeding. Blood work done today shows resolution of leukocytosis, hemoglobin at 7.6, CMP showing a persistent metabolic acidosis, elevated lactate, creatinine stable at 2.4, calcium of 10.8. Vitals/I&O/Wt Last Vital Signs Temp 97.6 F 05/10/23 12:10 Pulse 83 05/10/23 14:47 Resp 22 H 05/10/23 14:47 BP 103/63 05/10/23 12:10 Pulse Ox 97 05/10/23 14:47 O2 Del Method Room Air 05/10/23 14:47 05/09/23 05/10/23 05/10/23 22:59 06:59 14:59 Intake Total 1029 / 1979 515 / 2495 1650 / 1650 Output Total 125 / 125 300 / 300 Balance 1029 390 / 2370 1350 / 1350 Weight last 48 hrs Weight 85.684 kg Physical Exam Narrative: General: No acute distress, AO x3, pallor present. HEENT: PERRLA, pupils bilaterally equal and reactive Chest: Normal vesicular breath sounds, rhonchi with crackles present in left lower zone, right lower zone, equal good air entry bilaterally CVS: S1-S2 regular, no murmurs, tachycardia, no gallops, no rubs Abdomen: Soft, nontender, no organomegaly, bowel sounds present Neuro: No focal deficits, no facial deformity, AO x3, power 5/5 in all limbs Extremity: Right upper limb swollen, erythematous from elbow up till acromioclavicular joint Data 05/10/23 03:50 05/10/23 03:50 Micro: Microbiology 05/08/23 17:01 Blood Culture - Preliminary Blood Staphylococcus sp coag neg 05/09/23 18:39 Blood Culture - Preliminary Blood SPECIMEN COLLECTED 05/09/23 18:38 Blood Culture - Preliminary Blood SPECIMEN COLLECTED 05/08/23 16:40 Blood Culture - Preliminary Blood NEGATIVE TO DATE 05/09/23 11:39 Occult Blood (FIT) - Final Stool - Stool Aspirate 05/08/23 15:00 MRSA Culture - Final Nose A&P Assessment and plan (1) Dyspnea on exertion: Most likely a combination of anemia along with consolidation versus pulmonary mass/metastasis. Could be secondary to pulmonary embolism but patient already on full dose anticoagulation with Eliquis 5 mg twice daily. Echocardiogram done shows an EF 56% without regional wall motion, mitral, and aortic valve with mild sclerosis. CT chest results appreciated for multiple masses and lung nodules in lower lobes consistent with tumor. Cannot rule out postobstructive pneumonia. Sputum culture not collected. MRSA is negative. Continue with empiric Zosyn. If patient remains afebrile for next 24 hours then convert to oral antibiotics. Oxygen supplementation keeping saturation over 90%. Patient will most likely need home O2 evaluation prior to discharge. Pulmicort twice daily, Xopenex, ipratropium every 6 hours. (2) Sepsis: Ruled in on admission in setting of tachycardia, leukocytosis, borderline blood pressures with acute endorgan damage with worsening renal functions. Lactate elevated. Most likely in setting of significant tumor bulk along with hypoxia on exertion. Lactic level is elevated most likely in setting of aggressive DLBCL. Stop IV fluids. (3) Metabolic acidosis: Most likely in setting of CKD along with elevated lactate. High anion gap metabolic acidosis. No concern for DKA. Normal saline as above. Monitor BMP daily. (4) DLBCL (diffuse large B cell lymphoma): Follows up with oncology as an outpatient. Discussed in detail with oncology office. As per them patient would need orthopedic humeral surgery prior to treatment and have referred the patient to orthopedic office. On confirmation with Dr. Palomares unfortunately patient requires aggressive debulking surgery of the right arm/shoulder going down to the humeral head. Dr. Palomares has been consulted. (5) CKD (chronic kidney disease): Baseline creatinine 2-2.4. Creatinine baseline. Medical reconciliation done for nephrotoxic drugs. Monitor BMP daily for now. Electrode abnormality has resolved. With hyperkalemia. (6) HTN (hypertension): Goal blood pressure less than 140/90 mmHg. Blood pressure soft. Takes amlodipine 5 mg twice daily, atenolol 50 mg daily, clonidine 0.3 mg twice daily at home. Hold off on antihypertensives for now. Qualifiers: Hypertension type: renovascular hypertension Qualified Code(s): I15.0 - Renovascular hypertension (7) Hyperkalemia: (8) Anemia: Keep hemoglobin around 8. Iron studies appreciated for anemia of chronic disease, low folate level. B12 levels normal. Anemia most likely in setting of DLBCL. Stool for occult blood, DIC panel negative. Continue with Eliquis. Transfused 2 unit of PRBC. Will transfuse 1 more unit today. Plan Type 2 diabetes mellitus: Ruled out. A1c 4.4. Hold off on any further insulin sliding scale or carb consistent diet. Continue other chronic home medications including pain medication, allopurinol, baby aspirin. Full code Carb consistent cardiac diet. Famotidine for PUD prophylaxis Heparin will suffice as DVT prophylaxis. Admit to [facility]. Attestations Medical Necessity Statement*: Requires further hospitalization for management of dyspnea on exertion in a patient with aggressive DLBCL with possible pulmonary metastasis, possible postobstructive pneumonia, elevated lactate with high anion gap metabolic acidosis, anemia Diagnoses Dyspnea on exertion R06.09 Sepsis A41.9 Metabolic acidosis E87.20 DLBCL (diffuse large B cell lymphoma) C83.30 CKD (chronic kidney disease) N18.9 HTN (hypertension) I15.0 Hypertension type: renovascular hypertension Hyperkalemia E87.5 Anemia D64.9
[2023-05-10] MEDS: albumin 25 G/100 ML BAG 60 G IV (15:31)
[2023-05-10] MEDS: sodium bicarbonate 650 mg Tablet PO ×2 (16:15→20:41)
[2023-05-10 17:08] LABS: Glucose Point of Care 106 mg/dL (70-110)
--- NOTE | 2023-05-10 18:14 | PM.CONSULT ---
Providers/Reason For Consult Consulting Physician/Specialty*: Dr Randi Palomares - Orthopedics Reason for Consult*: Right Proximal humerus fracture secondary to lymphoma Requesting Physician: Dr. Iam Avelar Attending Physician: Iam Avelar MD Primary Care Provider: Haris Parsons DO History of Present Illness History of Present Illness Jason Caro is a 73 year old male with the emergency department on May 08, 2023. At that time, he was admitted with shortness of breath, inability to walk, and chest pain when standing. The patient has been seen in my office near the end of February, and he was referred to oncology and was seen there in early March. At that time, the oncology service was advised that this particular surgical intervention would require oncologic orthopedic surgeons rather than the surgeons present at our facility. Medically, history is obtained from the history and physical dictated on admission. With regards to the patient's shoulder, I was asked to discussed with the patient that we would not be doing the surgical procedure here at this hospital. Review of Systems General: Reports: 10 or more systems reviewed and unremarkable except in HPI and below Const: Denies: fever(s), chills, body aches, change in appetite, change in weight, malaise, night sweats, diaphoresis, change in sleep pattern, daytime sleepiness or snoring Eyes: Denies: change in vision, blurry vision, photophobia, eye discomfort or eye discharge ENMT: Denies: throat pain, enlarged tonsils, hoarseness, mouth pain, oral sores, dry mouth, tinnitus, nasal congestion or post nasal drip Card: Denies: chest pain, palpitations, irregular heart rhythm, edema, swelling of feet/ankles, lightheadedness, syncope, pre-syncope, dyspnea on exertion, orthopnea, leg pain with exertion or acrocyanosis Resp: Denies: dyspnea, productive cough, non-productive cough, wheezing, stridor, pain on inspiration, change in phlegm color, hemoptysis or chest congestion GI: Denies: abdominal pain, nausea, vomiting, hematemesis, coffee ground emesis, dysphagia, heartburn, diarrhea, constipation, bloating, GI cramping, change in bowel habits, pain on defecation, hematochezia or melena : Denies: flank pain, difficulty urinating, dysuria, urinary frequency, urinary urgency, urinary hesitancy, urinary dribbling, difficulty starting urination, change in urine stream, nocturia or hematuria Musc: Denies: neck pain, back pain, extremity pain, joint pain, joint swelling, joint redness, joint warmth, joint stiffness or limited range of motion Neuro: Denies: headache(s), numbness in extremities, weakness in extremities, sensory changes, lack of coordination, difficulty walking, frequent falls, dizziness, vertigo, confusion, Slurred speech present, difficulty communicating thoughts or seizure-like activity Psych: Denies: anxiety, depression, mood swings, panic attacks, hopelessness or irritability Endo: Denies: polyuria, polydipsia, tired all the time, cold intolerance, excessive sweating, flushing or heat intolerance Jose Maria/Lymph: Denies: easy bruising or easy bleeding All/Imm: Denies: tongue swelling, facial swelling or acute wheezing Medications/Allergies Home Medications Medication Instructions Recorded Confirmed Last Taken Type acetaminophen 325 mg capsule 650 mg PO QID PRN Pain 11/04/20 05/08/23 Unknown History amlodipine 5 mg tablet 5 mg PO BID 11/04/20 05/08/23 05/08/23 07:00 History aspirin 81 mg tablet,delayed 81 mg PO BEDTIME 11/04/20 05/08/23 05/07/23 History release chlorhexidine gluconate 0.12 % 15 ml buccal DAILY 11/04/20 05/08/23 Unknown History mouthwash clonidine HCl 0.3 mg tablet 0.3 mg PO TID 11/04/20 05/08/23 05/08/23 07:00 History docusate sodium 100 mg capsule 100 mg PO TID 11/04/20 05/08/23 05/08/23 History fluticasone propionate 50 2 spray intranasal BEDTIME 11/04/20 05/08/23 05/07/23 History mcg/actuation nasal spray,suspension (Allergy Relief (fluticasone)) guaifenesin 400 mg tablet 400 mg PO Q6H PRN Congestion 11/04/20 05/08/23 Unknown History latanoprost (PF) 0.005 % eye drops 1 drp ophthalmic (eye) QPM 11/04/20 05/08/23 05/07/23 History mupirocin 2 % topical ointment 1 applic topical BID PRN unknown 11/04/20 05/08/23 Unknown History sennosides 8.6 mg tablet (Senna 17.2 mg PO BID 11/04/20 05/08/23 05/08/23 History Lax) triamcinolone acetonide 0.1 % 1 applic topical BID PRN Rash 11/04/20 05/08/23 Unknown History topical cream famotidine 20 mg tablet 20 mg PO BID 04/08/22 05/08/23 05/08/23 07:00 History tamsulosin 0.4 mg capsule 0.4 mg PO BID #180 caps 04/08/22 05/08/23 05/08/23 Rx albuterol sulfate 90 mcg/actuation 2 puff inhalation QID PRN 04/16/22 05/08/23 Unknown History aerosol inhaler Shortness Of Breath omega [id number] oil 300 1 cap PO BID 04/16/22 05/08/23 05/08/23 History mg-1,000 mg capsule (Fish Oil) allopurinol 100 mg tablet 200 mg PO QAM 05/28/22 05/08/23 05/08/23 History fluticasone 100 mcg-salmeterol 50 1 inh inhalation BID 06/17/22 05/08/23 05/08/23 History mcg/dose blistr powdr for inhalation (Wixela Inhub) Shoulder collar and cuff #1 ea 02/25/23 05/08/23 Unknown Rx carboxymethylcellulose 0.5 1 drp ophthalmic (eye) QID PRN Dry 03/22/23 05/08/23 Unknown History %-glycerin 0.9 % (PF) eye drops Eye(S) cetirizine 10 mg tablet (All Day 10 mg PO BEDTIME Allergy Symptoms 03/22/23 05/08/23 05/07/23 History Allergy (cetirizine)) atenolol 100 mg tablet 50 mg PO QAM 03/23/23 05/08/23 05/08/23 07:00 History hydrocodone 5 mg-acetaminophen 325 1 - 2 tab PO Q6H PRN Pain 03/23/23 05/08/23 Unknown History mg tablet insulin glargine 100 unit/mL See Rx Instructions .Route .COMPLEX 03/23/23 05/08/23 Unknown History subcutaneous solution ipratropium 20 mcg-albuterol 100 1 puff inhalation QID PRN 03/23/23 05/08/23 Unknown History mcg/actuation mist for inhalation Shortness Of Breath lidocaine 5 % topical ointment 1 applic topical TID PRN Pain 03/23/23 05/08/23 Unknown History montelukast 10 mg tablet 10 mg PO QPM 03/23/23 05/08/23 05/07/23 History (Singulair) pravastatin 20 mg tablet 10 mg PO QPM 03/23/23 05/08/23 Unknown History apixaban 5 mg tablet 5 mg PO BID #12 tabs 03/24/23 05/08/23 05/08/23 07:00 Rx potassium chloride 20 mEq 20 meq PO DIRECTED 03/30/23 05/08/23 Unknown History tablet,extended release Allergies Allergy/AdvReac Type Severity Reaction Status Date / Time cephalexin Allergy Unknown Unknown Verified 04/26/23 14:15 Current Medications Generic Name Dose Route Start Last Admin Trade Name Freq PRN Reason Stop Dose Admin Allopurinol 200 mg 05/09/23 06:00 05/10/23 05:25 Allopurinol 100 Mg Tablet PO 200 mg QAM MICKY Administration Apixaban 5 mg 05/09/23 18:00 05/10/23 17:48 Apixaban 5 Mg Tablet PO 5 mg BID MICKY Administration Aspirin 81 mg 05/08/23 21:00 05/09/23 20:39 Aspirin 81 Mg Ec Tablet PO 81 mg BEDTIME MICKY Administration Atenolol 50 mg 05/09/23 09:00 05/10/23 10:03 Atenolol 50 Mg Tablet PO Not Given DAILY MICKY Budesonide 0.5 mg 05/08/23 20:00 05/10/23 08:03 Budesonide 0.5 Mg/2 Ml Neb INHALATION 0.5 mg BID.RESPIRATORY MICKY Administration Docusate Sodium 100 mg 05/08/23 15:00 05/10/23 16:15 Docusate Sodium 100 Mg Capsule PO 100 mg TID MICKY Administration Folic Acid 1 mg 05/09/23 09:00 05/10/23 17:48 Folic Acid 1 Mg Tablet PO 1 mg BID MICKY Administration Piperacillin Sod/Tazobactam 50 mls @ 12.5 mls/hr 05/09/23 14:30 05/10/23 16:15 Sod 3.375 gm/ Sodium Chloride IV 12.5 mls/hr Q8H MICKY Administration Protocol Albumin Human 25 g in 100 mls @ 60 mls/hr 05/10/23 10:00 05/10/23 17:15 Albumin IV Infused Q8H MICKY Infusion Insulin Human Lispro 0 unit 05/08/23 18:00 05/10/23 17:48 Insulin Lispro 100 Unit/1 Ml SUBCUT Not Given WM&BEDTIME MICKY Protocol Ipratropium [place] 0.5 mg 05/08/23 20:00 05/10/23 14:47 Ipratropium 0.5 Mg/2.5 Ml Neb INHALATION 0.5 mg Q6H MICKY Administration Levalbuterol HCl 0.63 mg 05/08/23 20:00 05/10/23 14:47 Levalbuterol 0.63 Mg/3 Ml Neb INHALATION 0.63 mg Q6H.RESP MICKY Administration Multivitamins Therapeutic 1 tab 05/09/23 09:00 05/10/23 10:02 Multivitamin Therapeutic Tablet PO 1 tab DAILY MICKY Administration Sodium Bicarbonate 650 mg 05/10/23 15:00 05/10/23 16:15 Sodium Bicarbonate 650 Mg Tablet PO 650 mg TID MICKY Administration Tamsulosin HCl 0.4 mg 05/08/23 18:00 05/10/23 17:48 Tamsulosin 0.4 Mg Capsule PO 0.4 mg BID MICKY Administration PFSH Acute PFSH: Medical History (Updated 05/11/23 @ 19:03 by Randi Palomares MD) Bacteriuria BPH loc w urin obs/LUTS Brain mass MRI brain from 2014 had shown enlarged, enhancing pituitary infundibulum with broad differential of neurosarcoidosis, eosinophilic granuloma, sequelae of meningitis, [employer] lymphoma, 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 CT head 04/2022 without abnormality noted. 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 Father , AT AGE 92 No problems noted. Social History Smoking and tobacco status: never smoked Alcohol intake: never Marital status: Current occupational status: retired Vitals/I&O/Wt Last Vital Signs Temp 97.6 F 05/10/23 15:44 Pulse 84 05/10/23 15:44 Resp 15 05/10/23 15:44 BP 103/63 05/10/23 12:10 Pulse Ox 97 05/10/23 15:44 O2 Del Method Room Air 05/10/23 15:44 05/10/23 05/10/23 05/10/23 06:59 14:59 22:59 Intake Total 515 / 2495 1650 / 1650 340 / 1990 Output Total 125 / 125 300 / 300 Balance 390 / 2370 1350 / 1350 340 / 1690 Weight last 48 hrs Weight 188 lb 14.4 oz Physical Exam Const: COMMON NORMALS: no acute distress, average body habitus, patient oriented x3 and alert GENERAL APPEARANCE: cooperative and comfortable ORIENTATION/CONSCIOUSNESS: Yes awake HENMT: COMMON NORMALS: normocephalic and atraumatic HEAD & SCALP: normocephalic and atraumatic Eye: GENERAL EYE: appearance normal, both eyes and all related structures Chest: COMMONS NORMALS: normal inspection of the chest Resp: COMMON NORMALS: normal respiratory effort EFFORT & INSPECTION: Yes able to speak in complete sentences and Yes symmetric chest movement Extremity: NARRATIVE EXTREMITY EXAM: Right upper extremity is very swollen with lymphedema. There is bruising and significant enlargement to the shoulder area consistent with the patient's fracture and history of aggressive tumor. He actually has developed increased mass to a significant degree since he was seen immediately following his humerus fracture. He also complains of weeping from his arm. This is primarily in the mid humeral section. Neuro: COMMON NORMALS: patient oriented x3 SENSORIUM/ORIENTATION: Yes alert Psych: COMMON NORMALS: mental status grossly normal APPEARANCE: Yes grossly normal ATTITUDE: Yes calm and Yes engaged ATTENTION/CONCENTRATION: Yes attention grossly intact Skin: COMMON NORMALS: no rashes or lesions noted GENERAL SKIN EXAM: no rashes or lesions noted Data 05/11/23 05:27 05/11/23 05:27 Micro: Microbiology 05/08/23 17:01 Blood Culture - Preliminary Blood Staphylococcus sp coag neg 05/09/23 18:39 Blood Culture - Preliminary Blood SPECIMEN COLLECTED 05/09/23 18:38 Blood Culture - Preliminary Blood SPECIMEN COLLECTED 05/08/23 16:40 Blood Culture - Preliminary Blood NEGATIVE TO DATE A&P Assessment and plan (1) Displaced fracture of proximal end of humerus: This patient was initially seen in my office presenting with a proximal humerus fracture. Upon my evaluation, it was felt that this was a pathologic fracture with local tumor of unknown origin. Patient was referred to oncology for work-up, and at that time, it was discussed that the patient would require oncologic relocation services specialist to address this particular fracture and correlate with the oncology service for appropriate treatment. The patient was seen at the oncologist here in our facility, and he was subsequently sent for biopsy with CT guidance. Patient was found to have B-cell lymphoma, and he was advised that he would need to have the fracture fixed prior to beginning treatment. I have advised the patient today that this treatment plan would need to be correlated with the oncologist and the orthopedic oncologist so that appropriate tumor debulking could be accomplished. This is not appropriate for the facility, and I have recommended that he be treated at [place] where he had his biopsy. (2) Pathologic fracture of humerus: Qualifiers: Pathology associated with fracture: neoplastic disease Encounter type: subsequent encounter Laterality: right (3) DLBCL (diffuse large B cell lymphoma): Coding Level of Care Code Acute Code for [facility] Diagnoses Displaced fracture of proximal end of humerus S42.209A Pathologic fracture of humerus M84.429A Pathology associated with fracture: neoplastic disease Encounter type: subsequent encounter Laterality: right DLBCL (diffuse large B cell lymphoma) C83.30
[2023-05-10 20:14] LABS: Glucose Point of Care 122 mg/dL (70-110)
[2023-05-10] MEDS: aspirin 81 mg EC Tablet PO (20:41)
--- NOTE | 2023-05-10 22:13 | PC.NURSE ---
PRBC's Pt with blood infusing at change of shift. Monitored through transfusion. No signs/sumptoms of transfusion reaction observed. Transfusion ended at 2139
[2023-05-11] VITALS (13 sets, daily range): BP systolic 83–138; BP diastolic 43–75; PULSE 84–97; RESP 15–18; TEMP 36.1–36.7; O2SAT 94–98
[2023-05-11] MEDS: albumin 25 G/100 ML BAG 60 G IV ×3 (01:23→18:46)
[2023-05-11] MEDS: ipratropium 0.5 mg/2.5 mL Neb INHALATION ×4 (01:36→21:00)
[2023-05-11] MEDS: levalbuterol 0.63 mg/3 mL Neb INHALATION ×4 (01:36→21:00)
[2023-05-11] MEDS: allopurinol 100 mg Tablet 200 MG PO (05:31)
[2023-05-11 05:51] LABS: Basophils % 0.3 %; Eosinophils # 0.1 10^3/uL (0.0-0.8); Eosinophils % 0.8 %; Hematocrit 28.6 % (42.0-52.0); Hemoglobin 8.6 g/dL (11.7-16.6); Lymphocytes # 0.7 10^3/uL (0.8-4.8); Lymphocytes % 6.5 %; Mean Corpuscular HGB Conc 30.1 g/dL (30.0-36.0); Mean Corpuscular Hemoglobin 27.3 pg (28.0-34.0); Mean Corpuscular Volume 90.8 fl (80-94); Mean Platelet Volume 10.5 fL (7.4-10.4); Monocytes # 0.7 10^3/uL (0.2-0.9); Monocytes % 7.1 %; Neutrophils # 8.43 10^3/uL (1.8-7.7); Neutrophils % 81.5 %; Nucleated Red Blood Cells % 0 %; Platelet Count 196 10^3/cmm (130-400); Red Blood Count 3.15 10^6/uL (4.1-5.3); Red Cell Distribution Width 19.8 % (12.1-15.1); White Blood Count 10.3 10^3/uL (4.0-10.0)
[2023-05-11] MEDS: piperacillin-tazobactam 3.375 GM in sodium chloride 0.9% (plus) 50 ML IV ×2 (05:58→15:15)
[2023-05-11 06:15] LABS: Alanine Aminotransferase 8 U/L (0-41); Albumin Level 2.3 g/dL (3.5-5.2); Alkaline Phosphatase 85 U/L (40-130); Anion Gap 24.7 (5-19); Aspartate Amino Transferase 17 U/L (0-40); Blood Urea Nitrogen 54 mg/dL (8-23); Calcium 12.5 mg/dL (8.5-10.5); Carbon Dioxide 16 mmol/L (22-29); Chloride 103 mmol/L (98-107); Globulin 1.6 g/dL (1.3-4.6); Glucose 82 mg/dL (65-115); Osmolality Calculated 302 mOsm/kg (285-295); Potassium 4.7 mmol/L (3.5-5.1); Sodium 139 mmol/L (136-145); Total Bilirubin 0.5 mg/dL (0.15-1.2); Total Protein 3.9 g/dL (6.6-8.7)
[2023-05-11 06:34] LABS: Glucose Point of Care 89 mg/dL (70-110)
[2023-05-11] MEDS: multivitamin therapeutic Tablet 1 TAB PO (08:42)
[2023-05-11] MEDS: sodium bicarbonate 650 mg Tablet PO ×2 (08:42→15:16)
[2023-05-11] MEDS: apixaban 5 mg Tablet PO ×2 (08:42→19:09)
[2023-05-11] MEDS: folic acid 1 mg Tablet PO ×2 (08:42→19:09)
[2023-05-11] MEDS: docusate sodium 100 mg Capsule PO ×2 (08:42→15:16)
[2023-05-11] MEDS: tamsulosin 0.4 mg Capsule PO ×2 (08:42→19:09)
[2023-05-11] MEDS: budesonide 0.5 mg/2 mL Neb INHALATION ×2 (09:00→21:00)
[2023-05-11 10:22] LABS: Calcium 12.7 mg/dL (8.5-10.5)
[2023-05-11 10:30] LABS: Parathyroid Hormone 8.5 pg/mL (15-65)
[2023-05-11 11:07] LABS: Glucose Point of Care 127 mg/dL (70-110)
--- NOTE | 2023-05-11 11:30 | PC.SOCIAL ---
IMM Update pg 2 of IMM updated and reviewed w/ patient. Copy provided and patient signed. Copy then dated, initialed and placed in chart.
[2023-05-11 11:56] LABS: Lactate Dehydrogenase 1023 U/L (135-225)
[2023-05-11] MEDS: sodium chloride 0.9% 1,000 ML 75 ML IV (13:18)
[2023-05-11 14:15] LABS: Uric Acid 12.9 mg/dL (3.4-7.0)
--- NOTE | 2023-05-11 14:53 | PM.TDS ---
Transfer Summary Providers Date of Admission: 05/08/23 12:51 Date of Discharge/Transfer: 05/11/23 Attending Provider at Admission: Iam Avelar MD Attending Provider at Transfer: Iam Avelar MD Consults: Orthopedics: Dr. Palomares Primary Care Provider: Haris Parsons DO Transfer Plans: Anticipated date of transfer: 05/11/23. Receiving Facility: [facility] Receiving Provider: Dr. Mitchell. Diagnoses at Discharge Discharge Diagnosis (1) Tumor lysis syndrome: Status: Acute (2) Hyperuricemia: Status: Acute (3) Acute kidney injury superimposed on CKD: Status: Acute (4) Hypercalcemia: Status: Acute (5) DLBCL (diffuse large B cell lymphoma): Status: Acute (6) Lactic acidosis: Status: Acute (7) Metabolic acidosis: Status: Acute (8) Dyspnea on exertion: Status: Acute (9) Sepsis: Status: Acute (10) CKD (chronic kidney disease): Status: Chronic Permanent problem details: Secondary to retroperitoneal fibrosis, hydronephrotic and atrophic right kidney, peritonealization of the ureters in 2019 (11) HTN (hypertension): Status: Chronic Qualifiers: Hypertension type: renovascular hypertension Qualified Code(s): I15.0 - Renovascular hypertension (12) Hyperkalemia: Status: Acute (13) Anemia: Status: Acute Reason for Visit Reason for Visit sob, unable to walk, chest pain when stand Brief History: History as per HPI: Jason Caro is a 72 year old male with past medical history of DLBCL, CKD with baseline creatinine of around 2.3, type 2 diabetes mellitus, hypertension, obstructive sleep apnea, BPH, retroperitoneal fibrosis presented to the ER today with worsening shortness of breath over the last 1 month.? Symptoms have been ongoing and getting worse for last 1 month.? He did have a VQ scan done in March 2023 which was intermediate risk for PE and he was started on Eliquis.? As per patient since starting Eliquis symptoms have not improved.? Shortness of breath gets worse on minimal exertion.? Not aggravated or relieved on laying down.? Associated with cough without expectoration.? Denies any subjective feeling of fever.? Denies any chest pain.? Denies any personal history of CAD.? Patient was getting a PET scan today and due to shortness of breath getting worse presented to the ER.? In ER he was found to be tachycardic with borderline blood pressures hence was given 1 L of IV fluid bolus.? Currently saturating more than 95% on room air but getting short of breath on conversation and minimal exertion. Hospital Course Hospital Course Patient was admitted to the hospital further evaluation and management of severe dyspnea on exertion. Patient was already found to be on full dose anticoagulation with Eliquis which was transitioned over to heparin drip on admission. CT chest was done on admission which was concerning for bilateral lower lobe mass versus consolidation versus postobstructive pneumonia. He was started on broad-spectrum antibiotics along with IV hydration. With treatment his leukocytosis resolved but was also found to have anemia with hemoglobin down to 6. Overall patient required 3 units of blood transfusion and his hemoglobin has been stable at around 8.6. Stool for occult blood was negative. Heparin was transitioned over back to Eliquis 5 mg twice daily. During hospitalization he was found to have persistent high anion gap metabolic acidosis along with lactic acidosis even after fluid resuscitation. He remained hemodynamically stable and afebrile though his home antihypertensives have been withheld. For persistent lactic acidosis there was a concern for high tumor burden versus tumor lysis for which he was found to have an LDH of more than 1000 and a uric acid of more than 12. With concerns for tumor lysis syndrome patient received 1 dose of 6 mg IV rasburicase, 80 mg of IV Solu-Medrol, continued on IV hydration with normal saline at 75 cc/h along with 1 dose of IV pamidronate. Patient's care was discussed in detail with Dr. Palomares/orthopedic surgeon for possibility of debulking surgery/humerus fixation. As per the recommendation given the extent of the tumor burden and the humerus involvement he would need to be transferred to a higher center as he is at a higher risk of catastrophe versus losing his arm. Given concerns for tumor lysis, labs with persistent lactic acidosis, elevated calcium levels, high uric acid, elevated calcium levels his care were discussed in detail with Dr. Logan from oncology who raised high suspicion on highly aggressive DLBCL along with high tumor burden and tumor lysis syndrome and advised patient to be transferred to a higher center for lymphoma specialist. Patient's care was discussed in detail with Dr. Mitchell from [facility] who has accepted him under her care. Patient has been transferred in hemodynamically stable condition. Physical Exam Narrative: General: No acute distress, AO x3, pallor present. HEENT: PERRLA, pupils bilaterally equal and reactive Chest: Normal vesicular breath sounds, rhonchi with crackles present in left lower zone, right lower zone, equal good air entry bilaterally CVS: S1-S2 regular, no murmurs, tachycardia, no gallops, no rubs Abdomen: Soft, nontender, no organomegaly, bowel sounds present Neuro: No focal deficits, no facial deformity, AO x3, power 5/5 in all limbs Extremity: Right upper limb swollen, erythematous from elbow up till acromioclavicular joint TS Data Studies Completed and Pending Pending at discharge Category Date Time Status Blood Culture Stat Lab 05/08/23 17:01 Results Blood Culture Stat Lab 05/09/23 18:39 Results Complete Blood Count w/Auto AM LABS Lab 05/12/23 04:00 Ordered Comprehensive Metabolic Panel AM LABS Lab 05/12/23 04:00 Ordered Fibrinogen Degradation Product Stat Lab 05/09/23 09:27 Received Ionized Calcium Routine Lab 05/11/23 09:26 Ordered LDH [Lactate Dehydrogenase] AM LABS Lab 05/12/23 04:00 Ordered LDH [Lactate Dehydrogenase] AM LABS Lab 05/13/23 04:00 Ordered LDH [Lactate Dehydrogenase] AM LABS Lab 05/14/23 04:00 Ordered Leukocyte Reduced RBC Routine Lab 05/09/23 05:32 Results MAG [Magnesium] AM LABS Lab 05/12/23 04:00 Ordered MAG [Magnesium] AM LABS Lab 05/13/23 04:00 Ordered MAG [Magnesium] AM LABS Lab 05/14/23 04:00 Ordered PHOS [Phosphorus] AM LABS Lab 05/12/23 04:00 Ordered PHOS [Phosphorus] AM LABS Lab 05/13/23 04:00 Ordered PHOS [Phosphorus] AM LABS Lab 05/14/23 04:00 Ordered Sputum Culture and Gram Stain Stat Lab 05/08/23 12:57 Uncollected Uric Acid AM LABS Lab 05/12/23 04:00 Ordered Uric Acid AM LABS Lab 05/13/23 04:00 Ordered Uric Acid AM LABS Lab 05/14/23 04:00 Ordered Labs from last 24 hours 05/11/23 05/11/23 05/11/23 11:01 06:31 05:27 WBC RBC Hgb Hct MCV MCH MCHC RDW Plt Count MPV Neut % (Auto) Lymph % (Auto) [place] % (Auto) Eos % (Auto) Baso % (Auto) Neut # (Auto) Lymph # (Auto) [place] # (Auto) Eos # (Auto) Baso # (Auto) Nucleated RBC % (auto) Nucleated RBCs # Sodium Potassium Chloride Carbon Dioxide Anion Gap BUN Creatinine GFR Calculation Glucose POC Glucose 127 H 89 Calculated Osmolality Uric Acid 12.9 H Calcium Total Bilirubin AST ALT Alkaline Phosphatase Lactate Dehydrogenase Total Protein Albumin Globulin Procalcitonin PTH Intact Calcium (PTH Intact) 05/11/23 05/11/23 05/11/23 05:27 05:27 05:27 WBC RBC Hgb Hct MCV MCH MCHC RDW Plt Count MPV Neut % (Auto) Lymph % (Auto) [place] % (Auto) Eos % (Auto) Baso % (Auto) Neut # (Auto) Lymph # (Auto) [place] # (Auto) Eos # (Auto) Baso # (Auto) Nucleated RBC % (auto) Nucleated RBCs # Sodium Potassium Chloride Carbon Dioxide Anion Gap BUN Creatinine GFR Calculation Glucose POC Glucose Calculated Osmolality Uric Acid Calcium Total Bilirubin AST ALT Alkaline Phosphatase Lactate Dehydrogenase 1023 H Total Protein Albumin Globulin Procalcitonin 0.50 PTH Intact 8.5 L Calcium (PTH Intact) 12.7 H 05/11/23 05/11/23 05/10/23 05:27 05:27 20:10 WBC 10.3 H RBC 3.15 L Hgb 8.6 L Hct 28.6 L MCV 90.8 MCH 27.3 L MCHC 30.1 RDW 19.8 H Plt Count 196 MPV 10.5 H Neut % (Auto) 81.5 Lymph % (Auto) 6.5 [place] % (Auto) 7.1 Eos % (Auto) 0.8 Baso % (Auto) 0.3 Neut # (Auto) 8.43 H Lymph # (Auto) 0.7 L [place] # (Auto) 0.7 Eos # (Auto) 0.1 Baso # (Auto) 0.0 Nucleated RBC % (auto) 0 Nucleated RBCs # 0.0 Sodium 139 Potassium 4.7 Chloride 103 Carbon Dioxide 16 L Anion Gap 24.7 H BUN 54 H Creatinine 2.5 H GFR Calculation Not Reportable Glucose 82 POC Glucose 122 H Calculated Osmolality 302 H Uric Acid Calcium 12.5 H Total Bilirubin 0.5 AST 17 ALT 8 Alkaline Phosphatase 85 Lactate Dehydrogenase Total Protein 3.9 L Albumin 2.3 L Globulin 1.6 Procalcitonin PTH Intact Calcium (PTH Intact) 05/10/23 17:02 WBC RBC Hgb Hct MCV MCH MCHC RDW Plt Count MPV Neut % (Auto) Lymph % (Auto) [place] % (Auto) Eos % (Auto) Baso % (Auto) Neut # (Auto) Lymph # (Auto) [place] # (Auto) Eos # (Auto) Baso # (Auto) Nucleated RBC % (auto) Nucleated RBCs # Sodium Potassium Chloride Carbon Dioxide Anion Gap BUN Creatinine GFR Calculation Glucose POC Glucose 106 Calculated Osmolality Uric Acid Calcium Total Bilirubin AST ALT Alkaline Phosphatase Lactate Dehydrogenase Total Protein Albumin Globulin Procalcitonin PTH Intact Calcium (PTH Intact) Completed Studies During Hospitalization Category Date Time Status CT chest wo con [id number] Stat Cat Scan 05/08/23 12:55 Completed XR chest 1V portable [id number] Stat Exams 05/08/23 10:56 [place] [id number] Urgent Ultrasound 05/08/23 12:57 Completed CV. echo complete* [id number] Routine Ultrasound 05/08/23 13:09 Completed Laboratory Last Values WBC 10.3 10^3/uL (4.0-10.0) H 05/11/23 05:27 RBC 3.15 10^6/uL (4.1-5.3) L 05/11/23 05:27 Hgb 8.6 g/dL (11.7-16.6) L 05/11/23 05:27 Hct 28.6 % (42.0-52.0) L 05/11/23 05:27 MCV 90.8 fl (80-94) 05/11/23 05:27 MCH 27.3 pg (28.0-34.0) L 05/11/23 05:27 MCHC 30.1 g/dL (30.0-36.0) 05/11/23 05:27 RDW 19.8 % (12.1-15.1) H 05/11/23 05:27 Plt Count 196 10^3/cmm (130-400) 05/11/23 05:27 MPV 10.5 fL (7.4-10.4) H 05/11/23 05:27 Neut % (Auto) 81.5 % 05/11/23 05:27 Lymph % (Auto) 6.5 % 05/11/23 05:27 [place] % (Auto) 7.1 % 05/11/23 05:27 Eos % (Auto) 0.8 % 05/11/23 05:27 Baso % (Auto) 0.3 % 05/11/23 05:27 Neut # (Auto) 8.43 10^3/uL (1.8-7.7) H 05/11/23 05:27 Lymph # (Auto) 0.7 10^3/uL (0.8-4.8) L 05/11/23 05:27 [place] # (Auto) 0.7 10^3/uL (0.2-0.9) 05/11/23 05:27 Eos # (Auto) 0.1 10^3/uL (0.0-0.8) 05/11/23 05:27 Baso # (Auto) 0.0 10^3/uL (0.0-0.1) 05/11/23 05:27 Nucleated RBC % (auto) 0 % 05/11/23 05:27 Total Counted 100 (0-100) 05/09/23 09:27 Atypical Lymphs % 0.0 % (0-5) 05/09/23 09:27 Absolute Neutrophils 10.8 10^3/cmm (1.4-6.5) H 05/09/23 09:27 Segmented Neutrophils 96 % 05/09/23 09:27 Abs Segm Neuts (Man) 10.8 10/cmm (1.6-7.1) H 05/09/23 09:27 Band Neutrophils 0.0 % 05/09/23 09:27 Abs Band Neuts (Man) 0.0 10^3/cmm (0.0-1.2) 05/09/23 09:27 Absolute Lymphocytes 0.2 10^3/cmm (1.2-3.4) L 05/09/23 09:27 Lymphocytes (Manual) 2 % 05/09/23 09:27 Monocytes (Manual) 2.0 % 05/09/23 09:27 Absolute Monocytes 0.2 10^3/cmm (0.1-0.6) 05/09/23 09:27 Eosinophils (Manual) 0 % 05/09/23 09:27 Absolute Eosinophils 0.0 10^3/cmm (0.0-0.7) 05/09/23 09:27 Basophils (Manual) 0.0 % 05/09/23 09:27 Absolute Basophils 0.0 10^3/cmm (0.0-0.2) 05/09/23 09:27 Nucleated RBCs # 0.0 /100WBC 05/11/23 05:27 Platelet Estimate Normal (Normal) 05/09/23 09:27 Polychromasia Trace 05/09/23 09:27 Anisocytosis 1+ H 05/09/23 09:27 Macrocytosis 1+ H 05/09/23 09:27 PT 15.30 SECONDS (12.1-14.9) H 05/09/23 09:27 INR 1.17 (0.8-1.2) 05/09/23 09:27 APTT 30.6 SECONDS (23.9-36.7) 05/09/23 09:27 Fibrinogen 289 mg/dL (174-498) 05/09/23 09:27 Fibrin Degrad Products TNP 05/09/23 09:27 D-Dimer 0.92 ug/mIFEU (0-0.59) H 05/09/23 09:27 Sodium 139 mmol/L (136-145) 05/11/23 05:27 Potassium 4.7 mmol/L (3.5-5.1) 05/11/23 05:27 Chloride 103 mmol/L (98-107) 05/11/23 05:27 Carbon Dioxide 16 mmol/L (22-29) L 05/11/23 05:27 Anion Gap 24.7 (5-19) H 05/11/23 05:27 BUN 54 mg/dL (8-23) H 05/11/23 05:27 Creatinine 2.5 mg/dL (0.7-1.2) H 05/11/23 05:27 GFR Calculation Not Reportable 05/11/23 05:27 Glucose 82 mg/dL (65-115) 05/11/23 05:27 POC Glucose 127 mg/dL (70-110) H 05/11/23 11:01 Estimat Average Glucose 80 05/09/23 02:56 Hemoglobin A1c 4.4 % (4.0-6.0) 05/09/23 02:56 Calculated Osmolality 302 mOsm/kg (285-295) H 05/11/23 05:27 Lactic Acid 10.0 mmol/L (0.5-2.2) H* 05/10/23 10:37 Lactic Acid (Sepsis) 10.9 mmol/L (0.5-2.2) H* 05/10/23 13:37 Uric Acid 12.9 mg/dL (3.4-7.0) H 05/11/23 05:27 Calcium 12.5 mg/dL (8.5-10.5) H 05/11/23 05:27 Phosphorus 3.4 mg/dL (2.5-4.5) 05/09/23 02:56 Magnesium 1.9 mg/dL (1.7-2.3) 05/09/23 02:56 Iron 41 ug/dL (59-158) L 05/08/23 11:05 TIBC 167 mcg/dl 05/08/23 11:05 % Saturation 24.5 % (20-50) 05/08/23 11:05 Unsat Iron Binding 126 ug/dL (112-347) 05/08/23 11:05 Total Bilirubin 0.5 mg/dL (0.15-1.2) 05/11/23 05:27 AST 17 U/L (0-40) 05/11/23 05:27 ALT 8 U/L (0-41) 05/11/23 05:27 Alkaline Phosphatase 85 U/L (40-130) 05/11/23 05:27 Lactate Dehydrogenase 1023 U/L (135-225) H 05/11/23 05:27 Troponin T Baseline 54 ng/L (0-15) H 05/08/23 11:05 Troponin T 120 Minute 44.89 ng/L (0-15) H 05/08/23 13:42 Delta Troponin T -9.11 ABS# (0-10) L 05/08/23 13:42 Troponin T Hi Sens 6Hr 41.18 ng/L (0-15) H 05/08/23 17:01 Troponin T Hi Sens 6Hr Delta -12.82 ng/L (0-12) L 05/08/23 17:01 NT-Pro-B Natriuret Pep 1033 pg/mL (0-125) H 05/08/23 11:05 Total Protein 3.9 g/dL (6.6-8.7) L 05/11/23 05:27 Albumin 2.3 g/dL (3.5-5.2) L 05/11/23 05:27 Globulin 1.6 g/dL (1.3-4.6) 05/11/23 05:27 Triglycerides 252 mg/dL (0-150) H 05/09/23 02:56 Cholesterol 97 mg/dL (0-200) 05/09/23 02:56 LDL Cholesterol, Calc 36 mg/dL (50-129) L 05/09/23 02:56 HDL Cholesterol 11 mg/dL (60-100) L 05/09/23 02:56 LDL/HDL Ratio 3.27 RATIO (0.00-3.22) H 05/09/23 02:56 Cholesterol/HDL Ratio 8.82 mg/dL (1.0-5.00) H 05/09/23 02:56 Vitamin B12 532 pg/mL (232-1245) 05/09/23 09:27 Folate 2.5 ng/mL (4.5-32.2) L 05/09/23 02:56 Procalcitonin 0.50 ng/mL (0-0.5) 05/11/23 05:27 TSH 4.00 uIU/mL (0.27-4.20) 05/08/23 11:05 PTH Intact 8.5 pg/mL (15-65) L 05/11/23 05:27 Calcium (PTH Intact) 12.7 mg/dL (8.5-10.5) H 05/11/23 05:27 Urine Color Yellow (Yellow) 05/08/23 18:34 Urine Appearance Clear (CLEAR) 05/08/23 18:34 Urine pH 5 (5-7) 05/08/23 18:34 Ur Specific [place] 1.015 (1.005-1.030) 05/08/23 18:34 Urine Protein Neg (Negative) 05/08/23 18:34 Urine Glucose (UA) Norm (Normal) 05/08/23 18:34 Urine Ketones Negative (Negative) 05/08/23 18:34 Urine Blood Neg (Negative) 05/08/23 18:34 Urine Nitrate Negative (Negative) 05/08/23 18:34 Urine Bilirubin Neg (Negative) 05/08/23 18:34 Urine Urobilinogen Norm mg/dL (Negative) 05/08/23 18:34 Ur Leukocyte Esterase Trace (Negative) H 05/08/23 18:34 Urine RBC 0-4 /hpf (0-2) H 05/08/23 18:34 Urine WBC 0-4 /hpf (0-5) H 05/08/23 18:34 Ur Squamous Epith Cells 0-4 /hpf (0-5) H 05/08/23 18:34 Amorphous Sediment Not Reportable 05/08/23 18:34 Urine Bacteria 2+ /hpf (NONE) H 05/08/23 18:34 Nasal Influ A H1 2009 PCR Not detected (NOT DETECT) 05/08/23 16:33 Urine Opiates Screen Negative ng/mL (Negative) 05/08/23 18:34 Ur Barbiturates Screen Negative ng/mL (Negative) 05/08/23 18:34 Ur Phencyclidine Scrn Negative ng/mL (Negative) 05/08/23 18:34 Ur Amphetamines Screen Negative ng/mL (Negative) 05/08/23 18:34 U Benzodiazepines Scrn Negative ng/mL (Negative) 05/08/23 18:34 Urine Cocaine Screen Negative ng/mL (Negative) 05/08/23 18:34 U Marijuana (THC) Screen Negative ng/mL (Negative) 05/08/23 18:34 Adenovirus (PCR) Not detected (NOT DETECT) 05/08/23 16:33 C. pneumoniae DNA (PCR) Not detected (NOT DETECT) 05/08/23 16:33 Coronavirus 229E (PCR) Not detected (NOT DETECT) 05/08/23 16:33 Human Metapneumovir PCR Not detected (NOT DETECT) 05/08/23 16:33 Influenza A (H1) PCR Not detected (NOT DETECT) 05/08/23 16:33 Influenza A (H3) PCR Not detected (NOT DETECT) 05/08/23 16:33 Influenza Type A (PCR) Not detected (NOT DETECT) 05/08/23 16:33 Influenza Type B (PCR) Not detected (NOT DETECT) 05/08/23 16:33 M. pneumoniae (PCR) Not detected (NOT DETECT) 05/08/23 16:33 Parainfluenza 1 (PCR) Not detected (NOT DETECT) 05/08/23 16:33 Parainfluenza 2 (PCR) Not detected (NOT DETECT) 05/08/23 16:33 Parainfluenza 3 (PCR) Not detected (NOT DETECT) 05/08/23 16:33 Parainfluenza 4 (PCR) Not detected (NOT DETECT) 05/08/23 16:33 RSV Type A (PCR) Not detected (NOT DETECT) 05/08/23 16:33 RSV Type B (PCR) Not detected (NOT DETECT) 05/08/23 16:33 Entero/Rhino (PCR) Not detected (NOT DETECT) 05/08/23 16:33 SARS-CoV-2 (PCR) Not detected (NOT DETECT) 05/08/23 16:33 Blood Type B Positive 05/09/23 05:32 Rho(D) Type Positive 05/09/23 05:32 Antibody Screen Negative 05/09/23 05:32 Crossmatch See Detail 05/09/23 05:32 Radiology Impressions Chest X-Ray 05/08/23 10:56 IMPRESSION: No acute findings. Chest CT 05/08/23 12:55 IMPRESSION: 1. Bulky a mass lesions in the right shoulder area consistent with tumor. 2. Multiple masses and lung nodules in the lower lobes consistent with tumor. 3. Bony erosions of the proximal right humerus by masses in the right shoulder 4. Heavy coronary artery calcifications. 5. Pneumobilia and cholecystectomy 6. Severe osteoarthritis dorsal spine 7. Pamela umbilical ventral hernia 8. Atrophic right kidney . 9. Bariatric surgery in the stomach Venous Duplex 05/08/23 12:57 IMPRESSION: No sonographic evidence of deep vein thrombosis. PET scan: FINDINGS: Brain: Visualized brain has normal physiologic uptake. Pharynx: No abnormal uptake. Larynx: No abnormal uptake. Lungs, pleura and trachea: Irregular shaped consolidations in the bilateral lower lobes larger on the right side with maximum uptake of 20.5 SUV on the right side and 18 SUV on the left side are compatible with lymphomatous involvement. There are minimal bilateral pleural effusions. Heart: Normal physiologic uptake. Mediastinal space: See below in lymph nodes . Liver: No abnormal uptake. Gallbladder and bile ducts: No abnormal uptake. Status post cholecystectomy. There is pneumobilia. Pancreas: No abnormal uptake. Spleen: There are 3 FDG avid nodules in the spleen measuring up to 2.5 cm in size with the highest uptake of 11.9 SUV. Adrenal glands: No abnormal uptake. No nodules. Kidneys and ureters:? Severe atrophy of the right kidney with no excretion. Mild atrophy of the left kidney with no hydronephrosis with diminished parenchymal uptake and no obvious excretion within the collecting system. Stomach and bowel: There are FDG avid findings in the small bowel suggestive of direct lymphomatous involvement (about 2 cm long focus measuring 9.6 SUV anteriorly in the upper abdomen on axial image 88; about 5 cm long segment in the right lateral abdomen on axial image 100 with the highest uptake of 12.2 SUV; about 5.5 cm long segment anteriorly in the midline in the lower abdomen on axial image 130 with uptake of 13.4 SUV). No bowel obstruction. No abnormal uptake in the stomach or in the colon. Intraperitoneal and retroperitoneal spaces: No abnormal uptake. No ascites. Urinary bladder: Lower than expected uptake in the urine (10.6 SUV) suggestive of impaired renal function. Reproductive:? No abnormal uptake. The prostate is mildly enlarged. Vasculature: No abnormal uptake. Lymph nodes: Most bulky right axillary lymphadenopathy is difficult to differentiate from adjacent extranodal soft tissue mass with maximum uptake of 18.8 SUV. Conglomerate of right supraclavicular lymph nodes measures 17.2 SUV. In addition, there are multiple small FDG avid lymph nodes compatible with lymphomatous involvement (left submandibular lymph node on axial image 25 with uptake of 5 SUV; left supraclavicular lymph node on axial image 32 with uptake of 3.1 SUV; 1 cm left axillary lymph node on axial image 48 with uptake of 9.3 SUV; middle mediastinal focus on axial image 57 with uptake of 12.9 SUV; 1.5 cm perigastric lymph node on axial image 78 with uptake of 5.5 SUV; a cluster of mesenteric lymph nodes on axial image 111 measuring up to 1 cm with uptake of 5.7 SUV. Bones/joints: There is pathologic fracture of the right humeral neck directly involved by the lytic process due to lymphoma. Soft tissues: Large lymphomatous mass in the right shoulder extending into the right upper arm predominantly anteriorly, into upper chest wall, the right axilla inseparable from adjacent lymphadenopathy, into the right upper back with maximum uptake of 18.4 SUV.? Linear paravertebral/subpleural thickening in the lower chest extending into the retrocrural region is not FDG avid (0.8 SUV). PET/PET skulltothigh INITIAL [id number] IMPRESSION: 1. Multifocal compartmental FDG avid lymphadenopathy with massive bulky disease in the right axilla and the right supraclavicular area with the highest uptake of 18.8 SUV, and multiple small FDG avid lymph nodes in the left neck, mediastinum, left axilla and the mesentery suggestive of additional lymphomatous lymph nodes. Multifocal extranodal lymphoma with involvement of soft tissues and organs as follows: -Large soft tissue mass in the right shoulder/right upper arm/right chest wall/right back with the highest uptake of 18.4 SUV; -Direct lymphomatous involvement of the right proximal humerus with lytic lesion involved with pathologic fracture of the neck; -Lung masses in the lower lobes with the with the highest uptake of 20.5 SUV; -3 implants of lymphoma in the spleen with the highest uptake of 11.9 SUV; -3 segments of small bowel involvement with the highest uptake of 13.4 SUV causing no bowel obstruction. ? 2. No obvious renal excretion with severe right renal atrophy. Diminished concentration of isotope in the bladder suggestive of renal insufficiency. Echocardiogram ?CONCLUSIONS ?Normal left ventricular size and systolic function, EF 56 %. ?No regional wall motion abnormalities. ?Mild mitral annular calcification. ?Thickened aortic valve with features of aortic valve sclerosis. ?Mildly dilated ascending aorta measuring 3.6 cm in diameter. ?There is no pericardial effusion. ?There are no intracardiac masses. ?No similar previous studies are available for comparison ?Dr Mark Colmenares MD [facility] ?(Electronically Signed) ?Final Date:? ? ? 09 May 2023 ? 13:26 Recent Clincial Data Last Vital Signs Temp 98.0 F 05/11/23 11:05 Pulse 86 05/11/23 11:05 Resp 16 05/11/23 11:05 BP 124/63 05/11/23 11:05 Pulse Ox 97 05/11/23 11:05 O2 Del Method Room Air 05/11/23 11:05 Vital Signs Temp Pulse Resp BP Pulse Ox O2 Del Method 05/11/23 11:05 98.0 F 86 16 124/63 97 Room Air 05/11/23 09:49 88 16 88/62 95 Room Air 05/11/23 08:00 98.0 F 87 16 98/54 94 Room Air 05/11/23 08:55 85 18 94 Room Air 05/11/23 05:24 87 05/11/23 04:00 96.9 F L 88 18 138/73 95 Intake & Output/Weight 05/09/23 05/10/23 05/11/23 05/12/23 06:59 06:59 06:59 06:59 Intake Total 3442.217 / 3442.217 2495 / 2495 2900 / 2900 630 / 630 Output Total 125 / 125 950 / 950 Balance 3442.217 / 3442.217 2370 / 2370 1950 / 1950 630 / 630 Weight 80.286 kg 85.684 kg 85.275 kg Vitals Last Vital Signs Temp 98.0 F 05/11/23 11:05 Pulse 86 05/11/23 11:05 Resp 16 05/11/23 11:05 BP 124/63 05/11/23 11:05 Pulse Ox 97 05/11/23 11:05 O2 Del Method Room Air 05/11/23 11:05 TS Medications Medications Acetaminophen (Acetaminophen 325 Mg Tablet) 650 mg PO Q6H PRN PRN Reason: Mild/Mod Pain Or Temp >/= 101 Hydrocodone Bitart/Acetaminophen (Hydrocodone-Acetaminophen 5-325 Mg Tablet) 1 tab PO Q6H PRN PRN Reason: Pain Allopurinol (Allopurinol 100 Mg Tablet) 200 mg PO QAM [facility] Last Admin: 05/11/23 05:31 Dose: 200 mg Apixaban (Apixaban 5 Mg Tablet) 5 mg PO BID [facility] Last Admin: 05/11/23 08:42 Dose: 5 mg Aspirin (Aspirin 81 Mg Ec Tablet) 81 mg PO BEDTIME [facility] Last Admin: 05/10/23 20:41 Dose: 81 mg Atenolol (Atenolol 50 Mg Tablet) 50 mg PO DAILY [facility] Last Admin: 05/10/23 10:03 Dose: Not Given Bisacodyl (Bisacodyl 5 Mg Tablet) 10 mg PO DAILY PRN; Protocol PRN Reason: Constipation (see protocol) Budesonide (Budesonide 0.5 Mg/2 Ml Neb) 0.5 mg INHALATION BID.RESPIRATORY [facility] Last Admin: 05/11/23 09:00 Dose: 0.5 mg Dextrose (Dextrose 50% Syringe 50 Ml) 50 ml IVP PRN PRN; Protocol PRN Reason: hypoglycemia protocol Dextrose (Dextrose 50% Syringe 50 Ml) 25 ml IVP ONCE PRN; Protocol PRN Reason: hypoglycemia protocol Docusate Sodium (Docusate Sodium 100 Mg Capsule) 100 mg PO TID [facility] Last Admin: 05/11/23 08:42 Dose: 100 mg Folic Acid (Folic Acid 1 Mg Tablet) 1 mg PO BID [facility] Last Admin: 05/11/23 08:42 Dose: 1 mg Glucagon (Glucagon 1 Mg/Ml Inj 1 Ml) 1 mg IM ONCE PRN; Protocol PRN Reason: Adult Acute Hypoglycemia Prot. Dextrose (D5w) 500 mls @ 100 mls/hr IV ONCE PRN; Protocol PRN Reason: Adult Acute Hypoglycemia Prot Piperacillin Sod/Tazobactam (Sod 3.375 gm/ Sodium Chloride) 50 mls @ 12.5 mls/hr IV Q8H [facility]; Protocol Last Infusion: 05/11/23 10:07 Dose: Infused Albumin Human (Albumin) 25 g in 100 mls @ 60 mls/hr IV Q8H [facility] Last Infusion: 05/11/23 13:31 Dose: Infused Sodium Chloride (Sodium Chloride 0.9%) 1,000 mls @ 75 mls/hr IV .[id number] [facility] Last Admin: 05/11/23 13:18 Dose: 75 mls/hr Insulin Human Lispro (Insulin Lispro 100 Unit/1 Ml) 0 unit SUBCUT WM&BEDTIME [facility]; Protocol Last Admin: 05/11/23 11:05 Dose: Not Given Ipratropium [place] (Ipratropium 0.5 Mg/2.5 Ml Neb) 0.5 mg INHALATION Q6H [facility] Last Admin: 05/11/23 09:00 Dose: 0.5 mg Lactulose (Lactulose Oral Liq 20 Gm/30 Ml Udc) 10 gm PO DAILY PRN; Protocol PRN Reason: Constipation (see protocol) Levalbuterol HCl (Levalbuterol 0.63 Mg/3 Ml Neb) 0.63 mg INHALATION Q6H.RESP [facility] Last Admin: 05/11/23 09:00 Dose: 0.63 mg Magnesium Hydroxide (Magnesium Hydroxide 30 Ml Udc) 30 ml PO DAILY PRN; Protocol PRN Reason: Constipation (see protocol) Multivitamins Therapeutic (Multivitamin Therapeutic Tablet) 1 tab PO DAILY [facility] Last Admin: 05/11/23 08:42 Dose: 1 tab Ondansetron HCl (Ondansetron 2 Mg/Ml Sdv 2 Ml) 4 mg IVP Q8H PRN PRN Reason: vomiting, or N/V if npo Sodium Bicarbonate (Sodium Bicarbonate 650 Mg Tablet) 650 mg PO TID [facility] Last Admin: 05/11/23 08:42 Dose: 650 mg Tamsulosin HCl (Tamsulosin 0.4 Mg Capsule) 0.4 mg PO BID [facility] Last Admin: 05/11/23 08:42 Dose: 0.4 mg Discontinued Medications Albuterol/Ipratropium (Ipratropium-Albuterol 3 Ml Neb) 3 ml INHALATION ONCE ONE Stop: 05/08/23 10:57 Last Admin: 05/08/23 11:09 Dose: 3 ml Aspirin (Aspirin 81 Mg Chew Tablet) 324 mg PO ONCE ONE Stop: 05/08/23 10:57 Last Admin: 05/08/23 11:37 Dose: 324 mg Dextrose (Dextrose 50% Syringe 50 Ml) 50 ml IVP ONCE ONE Stop: 05/08/23 14:34 Last Admin: 05/08/23 15:27 Dose: 50 ml Famotidine (Famotidine 20 Mg Tablet) 20 mg PO BID [facility] Last Admin: 05/08/23 17:13 Dose: 20 mg Heparin Sodium (Porcine) (Heparin 5,000 Unit/Ml Inj 1 Ml) 0 unit IV PRN PRN; Protocol PRN Reason: Heparin weight-base protocol Last Admin: 05/08/23 14:11 Dose: 3,900 unit Sodium Chloride (Sodium Chloride 0.9%) 1,000 mls @ 999 mls/hr IV .Q1H1M ONE Stop: 05/08/23 11:56 Last Infusion: 05/08/23 14:35 Dose: Infused Heparin Sodium/Sodium Chloride (Heparin Drip) 25,000 unit in 500 mls @ 0 mls/hr IV .Q0M [facility]; Protocol Last Titration: 05/09/23 22:09 Dose: Infused Sodium Chloride (Sodium Chloride 0.9%) 1,000 mls @ 75 mls/hr IV .[id number] [facility] Last Infusion: 05/10/23 10:04 Dose: Infused Insulin Human Regular 10 unit/ (N/A) 0.1 mls @ 0 mls/hr IVP ONCE ONE Stop: 05/08/23 14:46 Last Infusion: 05/08/23 15:35 Dose: Infused Sodium Chloride (Sodium Chloride 0.9%) 1,000 mls @ 999 mls/hr IV .Q1H1M ONE Stop: 05/08/23 19:06 Last Infusion: 05/08/23 19:44 Dose: Infused Sodium Chloride (Sodium Chloride 0.9% (100 Ml)) Confirm Administered Dose 100 mls @ as directed .ROUTE .STK-MED ONE Stop: 05/09/23 07:23 Sodium Chloride (Sodium Chloride 0.9% (100 Ml)) Confirm Administered Dose 100 mls @ as directed .ROUTE .STK-MED ONE Stop: 05/10/23 11:47 Last Admin: 05/11/23 10:17 Dose: Not Given Ipratropium [place] (Ipratropium 0.5 Mg/2.5 Ml Neb) 0.5 mg INHALATION Q6H [facility] Levalbuterol HCl (Levalbuterol 0.63 Mg/3 Ml Neb) 0.63 mg INHALATION Q6H.RESP [facility] Sodium Chloride (Sodium Chloride 0.9% 100 Ml Bag) 50 ml IV PRN PRN PRN Reason: Blood transfusion prime and flush Stop: 05/10/23 04:03 Last Admin: 05/09/23 07:46 Dose: 50 ml Sodium Chloride (Sodium Chloride 0.9% 100 Ml Bag) 50 ml IV PRN PRN PRN Reason: Blood transfusion prime and flush Stop: 05/11/23 09:53 Allergies cephalexin Allergy (Unknown, Verified 04/26/23 14:15) Unknown Home Medications acetaminophen 325 mg capsule 650 mg PO QID PRN Pain 11/04/20 [History Confirmed 05/08/23] amlodipine 5 mg tablet 5 mg PO BID 11/04/20 [History Confirmed 05/08/23] aspirin 81 mg tablet,delayed release 81 mg PO BEDTIME 11/04/20 [History Confirmed 05/08/23] chlorhexidine gluconate 0.12 % mouthwash 15 ml buccal DAILY 11/04/20 [History Confirmed 05/08/23] clonidine HCl 0.3 mg tablet 0.3 mg PO TID 11/04/20 [History Confirmed 05/08/23] docusate sodium 100 mg capsule 100 mg PO TID 11/04/20 [History Confirmed 05/08/23] fluticasone propionate 50 mcg/actuation nasal spray,suspension (Allergy Relief (fluticasone)) 2 spray intranasal BEDTIME 11/04/20 [History Confirmed 05/08/23] guaifenesin 400 mg tablet 400 mg PO Q6H PRN Congestion 11/04/20 [History Confirmed 05/08/23] latanoprost (PF) 0.005 % eye drops 1 drp ophthalmic (eye) QPM 11/04/20 [History Confirmed 05/08/23] mupirocin 2 % topical ointment 1 applic topical BID PRN unknown 11/04/20 [History Confirmed 05/08/23] sennosides 8.6 mg tablet (Senna Lax) 17.2 mg PO BID 11/04/20 [History Confirmed 05/08/23] triamcinolone acetonide 0.1 % topical cream 1 applic topical BID PRN Rash 11/04/20 [History Confirmed 05/08/23] famotidine 20 mg tablet 20 mg PO BID 04/08/22 [History Confirmed 05/08/23] tamsulosin 0.4 mg capsule 0.4 mg PO BID #180 caps 04/08/22 [Rx Confirmed 05/08/23] albuterol sulfate 90 mcg/actuation aerosol inhaler 2 puff inhalation QID PRN Shortness Of Breath 04/16/22 [History Confirmed 05/08/23] omega 0-tle-oyc-fish oil 300 mg-1,000 mg capsule (Fish Oil) 1 cap PO BID 04/16/22 [History Confirmed 05/08/23] allopurinol 100 mg tablet 200 mg PO QAM 05/28/22 [History Confirmed 05/08/23] fluticasone 100 mcg-salmeterol 50 mcg/dose blistr powdr for inhalation (Wixela Inhub) 1 inh inhalation BID 06/17/22 [History Confirmed 05/08/23] Shoulder collar and cuff #1 ea 02/25/23 [Rx Confirmed 05/08/23] carboxymethylcellulose 0.5 %-glycerin 0.9 % (PF) eye drops 1 drp ophthalmic (eye) QID PRN Dry Eye(S) 03/22/23 [History Confirmed 05/08/23] cetirizine 10 mg tablet (All Day Allergy (cetirizine)) 10 mg PO BEDTIME Allergy Symptoms 03/22/23 [History Confirmed 05/08/23] atenolol 100 mg tablet 50 mg PO QAM 03/23/23 [History Confirmed 05/08/23] hydrocodone 5 mg-acetaminophen 325 mg tablet 1 - 2 tab PO Q6H PRN Pain 03/23/23 [History Confirmed 05/08/23] insulin glargine 100 unit/mL subcutaneous solution See Rx Instructions .Route .COMPLEX 03/23/23 [History Confirmed 05/08/23] ipratropium 20 mcg-albuterol 100 mcg/actuation mist for inhalation 1 puff inhalation QID PRN Shortness Of Breath 03/23/23 [History Confirmed 05/08/23] lidocaine 5 % topical ointment 1 applic topical TID PRN Pain 03/23/23 [History Confirmed 05/08/23] montelukast 10 mg tablet (Singulair) 10 mg PO QPM 03/23/23 [History Confirmed 05/08/23] pravastatin 20 mg tablet 10 mg PO QPM 03/23/23 [History Confirmed 05/08/23] apixaban 5 mg tablet 5 mg PO BID #12 tabs 03/24/23 [Rx Confirmed 05/08/23] potassium chloride 20 mEq tablet,extended release 20 meq PO DIRECTED 03/30/23 [History Confirmed 05/08/23] Discharge Plan Discharge Patient Disposition: Xfer Other Condition: Stable Prescriptions: Continued chlorhexidine gluconate 0.12 % mouthwash 15 ml buccal DAILY Rx Instructions: swish and spit latanoprost (PF) 0.005 % drops 1 drp ophthalmic (eye) QPM mupirocin 2 % ointment 1 applic topical BID PRN (Reason: unknown) triamcinolone acetonide 0.1 % cream 1 applic topical BID PRN (Reason: Rash) acetaminophen 325 mg capsule 650 mg PO QID PRN (Reason: Pain) aspirin 81 mg tablet,delayed release (DR/EC) 81 mg PO BEDTIME docusate sodium 100 mg capsule 100 mg PO TID fluticasone propionate [Allergy Relief (fluticasone)] 50 mcg/actuation spray,suspension 2 spray intranasal BEDTIME Rx Instructions: administer into each nostril guaifenesin 400 mg tablet 400 mg PO Q6H PRN (Reason: Congestion) sennosides [Senna Lax] 8.6 mg tablet 17.2 mg PO BID cetirizine [All Day Allergy (cetirizine)] 10 mg tablet 10 mg PO BEDTIME famotidine 20 mg tablet 20 mg PO BID tamsulosin 0.4 mg capsule 0.4 mg PO BID Qty: 180 1RF allopurinol 100 mg tablet 200 mg PO QAM fluticasone propion-salmeterol [Wixela Inhub] 100-50 mcg/dose blister with device 1 inh inhalation BID (DME) Shoulder collar and cuff See Rx Instructions .Route .MEDSUPPLY Qty: 1 0RF Rx Instructions: As directed albuterol sulfate 90 mcg/actuation Hfa Aerosol Inhaler 2 puff INHALATION QID PRN (Reason: Shortness Of Breath) omega 0-xuq-teo-fish oil [Fish Oil] 300-1,000 mg Capsule 1 cap PO BID carboxymethylcell-glycerin(PF) 0.5-0.9 % drops 1 drp OPHTHALMIC (EYE) QID PRN (Reason: Dry Eye(S)) insulin glargine 100 unit/mL Solution See Rx Instructions .ROUTE .COMPLEX Rx Instructions: sliding scale subcutaneously at bedtime hydrocodone-acetaminophen 5-325 mg Tablet 1 - 2 tab PO Q6H PRN (Reason: Pain) montelukast [Singulair] 10 mg Tablet 10 mg PO QPM lidocaine 5 % Ointment 1 applic TOPICAL TID PRN (Reason: Pain) ipratropium-albuterol 20-100 mcg/actuation Mist 1 puff INHALATION QID PRN (Reason: Shortness Of Breath) pravastatin 20 mg tablet 10 mg PO QPM apixaban 5 mg tablet 5 mg PO BID Qty: 12 0RF Discontinued clonidine HCl 0.3 mg tablet 0.3 mg PO TID Hold Instructions: unless instructed to resume amlodipine 5 mg tablet 5 mg PO BID atenolol 100 mg tablet 50 mg PO QAM potassium chloride 20 mEq tablet extended release 20 meq PO DIRECTED Rx Instructions: twice a week takes 2 additional tabs Discharge Orders: Transfer Out of Facility (Order); Ordered 05/11/23 Ordered By: Iam Avelar Discharge Diet: Diabetic Discharge Activity: Resume usual activity Patient Instructions: Opioid Safety Transfer Attestations Time Spent in Transfer Care: greater than 30 min Status at Transfer: Cognitive status at transfer: cognitively intact; Behavioral status at transfer: cooperative; Functional status at transfer: other assisted ambulation; Overall status at transfer: patient is not back to baseline Quality Metrics Clinical Quality Measures [ No reported AMI, CVA or VTE this stay] Coding Level of Care Code Critical Care >/= 30 minutes Critical care time (in minutes): 70 The high probability of a clinically significant, sudden or life threatening deterioration, as referenced in this documentation, required my full and direct attention, intervention and personal management. The critical care time shown is in addition to time spent performing any reported separately billable procedures and includes the following: [x] Data and vital sign review and interpretation [x] Patient assessment, examination and intervention [x] Medication orders and management [x] Patient/Family updates as able [x] Care Coordination and Documentation. 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
--- NOTE | 2023-05-11 16:30 | XRR_ITS ---
PROCEDURE INFORMATION: Exam: XR Chest Exam date and time: 05/11/2023 4:42 PM Age: 73 years old Clinical indication: Device placement; Other: Central line placement, L sided central line placement TECHNIQUE: Imaging protocol: Radiologic exam of the chest. Views: 1 view. COMPARISON: CT chest wo con [id number] 05/08/2023 1:30 PM FINDINGS: Tubes, catheters and devices: Tip of the central venous catheter projects over the right atrium. Lungs: There are patchy opacities at the perihilar regions and lung bases most prominent along the posteromedial aspect of the right lower lobe. Pleural spaces: Blunting of the right costophrenic angle is suggestive of a small pleural effusion. Heart/Mediastinum: Unremarkable. No cardiomegaly. Bones/joints: Comminuted proximal right humeral fractures are more optimally visualized on the prior CT scan of the chest. Please see that report. Soft tissues: There is soft tissue fullness in the right axillary region. XR/XR chest 1V portable [id number] IMPRESSION: 1. Tip of the central venous catheter projects over the right atrium. 2. There are patchy opacities at the perihilar regions and lung bases most prominent along the posteromedial aspect of the right lower lobe.
--- NOTE | 2023-05-11 16:31 | P.ANES_ITS ---
Anesthesia Procedures Procedure/Date: 05/11/23 Central Venous Insert: Central Venous Line: L Internal jugular - per hospitalist request for venous access Time Out Performed: Yes Consent: requested by attending/covering physician, from patient, from other, risks and benefits reviewed and patient agrees to proceed Central Line: New Vein cannulated: left internal jugular Ultrasound used: to identify patency to vessel and to visualize needle entry to vein Post procedure: Obtain Chest X-Ray Additional Comments: Sterile prep and drape of skin and patient, lidocaine 1% for local anesthesia, vein accessed using ultrasound and seldinger technique, guide wire threaded over actively bleeding back-catheter, US used to show guidewire in IJ in both in- plane and [id number] views, Dilated vessel, central line placed, guidewire removed. Sutured into place, sterile dressing applied. CXR ordered
[2023-05-11 16:57] LABS: Glucose Point of Care 136 mg/dL (70-110)
[2023-05-11] MEDS: vancomycin 1,250 MG/250 ML PIGGYBACK 250 MG IV (18:42)
[2023-05-11 20:35] LABS: Glucose Point of Care 143 mg/dL (70-110)
--- NOTE | 2023-05-11 20:37 | PC.PHAR ---
[id number] VANCOMYCIN - dosing at 15 mg/kg = 1,250 mg . Increased frequency due to Pt renal function estimated at 27 ml/min to q36h. will monitor in following days for improvement or reduction. trough du before - 05/14/23 @ 1500
[2023-05-19 23:49] LABS: Fibrinogen Degradation Product <5 mcg/mL (LESS THAN 5)
--- NOTE | 2023-07-31 07:25 | W.ED.SOB ---
HPI - SOB/Dyspnea General: Chief Complaint: Shortness of Breath/Dyspnea Stated Complaint: sob, unable to walk, chest pain when stand Time Seen by Provider: 05/08/23 10:48 History of Present Illness: HPI Narrative: Mr. Maya is a 73-year-old male that presents to the emergency department with complaints of increased exertional dyspnea that has been ongoing for more than a month. He states today it became much more worse. He states that he became very diaphoretic even with short episodes of exertion. Patient states he has had longstanding swelling to his right upper arm and chest area to include his entire right hand and fingers. Patient states he has been seen by physician previously and is concerned that this may be a malignancy or obstruction. He states he has had the swelling to the right upper extremity which has caused continuous weeping for the previous 4 months. Upon evaluation in the emergency exam room patient is awake and alert, in no acute distress at present. His respirations and breathing are full and unlabored. He denies pain at present. Related Data: Home oxygen amount: none Review of Systems General: Reports: 10 or more systems reviewed and unremarkable except in HPI and below Resp: Reports: dyspnea and other (Dyspnea on exertion) Musc: Reports: extremity swelling (Right upper extremity swelling) [facility] PFSH: Medical History Bacteriuria BPH loc w urin obs/LUTS Brain mass MRI brain from 2014 had shown enlarged, enhancing pituitary infundibulum with broad differential of neurosarcoidosis, eosinophilic granuloma, sequelae of meningitis, SPACE SCHEDULER lymphoma, 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 CT head 04/2022 without abnormality noted. 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 Father , AT AGE 92 No problems noted. Social History Smoking and tobacco/nicotine status: never used tobacco/nicotine Alcohol intake: never Marital status: Current occupational status: retired Physical Exam Const: COMMON NORMALS: no acute distress, patient oriented x3 and alert HENMT: COMMON NORMALS: normocephalic, atraumatic and moist oral mucous membranes HEAD & SCALP: normocephalic and atraumatic Eye: COMMON NORMALS: Equal, round and reactive pupils present and EOMs intact bilaterally PUPIL: Yes Equal, round and reactive pupils present Neck/C-Spine: COMMON NORMALS: full ROM, supple and no meningeal signs; negative for no lymphadenopathy Lymph: LYMPHATIC: lymphedema (Right supraclavicular lymphadenopathy) Chest: CHEST: No crepitus and Yes other (Anterior and lateral chest wall lymphedema noted) Resp: COMMON NORMALS: normal respiratory effort and clear to auscultation bilaterally AUSCULTATION: clear to auscultation bilaterally Cardio: COMMON NORMALS: regular rate, regular rhythm, S1 normal heart sound present, S2 normal heart sound present and Peripheral pulses 2+ throughout RATE: regular rate RHYTHM: regular rhythm HEART SOUNDS: S1 normal heart sound present and S2 normal heart sound present PERIPHERAL PULSES: Peripheral pulses 2+ throughout GI: COMMON NORMALS: Normal to inspection, nondistended, normoactive bowel sounds present, Soft to palpation and non-tender PALPATION: Yes Soft to palpation : COMMON NORMALS: Yes no CVA tenderness BLADDER/KIDNEY EXAM: Yes no CVA tenderness Back/Pelvis: COMMON NORMALS: no CVA tenderness, thoracic and lumbar spine normal to inspection and no thoracic nor lumbar tenderness Extremity: RIGHT UPPER EXTREMITY: Yes upper arm (Edematous) and Yes lower arm (Edematous) Neuro: COMMON NORMALS: patient oriented x3, moves all extremities and no focal motor deficits SENSORIUM/ORIENTATION: Yes alert MENINGEAL SIGNS: Yes no meningeal signs Psych: COMMON NORMALS: mental status grossly normal, cooperative, normal affect and activity/motor behavior normal Skin: COMMON NORMALS: no rashes or lesions noted and no wounds GENERAL SKIN EXAM: no rashes or lesions noted Course Vital Signs: Vital signs: Vital Signs Temperature 97.9 F 05/11/23 20:00 Pulse Rate 85 05/11/23 21:00 Respiratory Rate 17 05/11/23 21:00 Blood Pressure 131/75 05/11/23 20:00 Pulse Oximetry 96 05/11/23 21:00 Oxygen Delivery Me thod Room Air 05/11/23 21:00 MDM - SOB/Dyspnea Medical Decision Making Physical exam completed and documented given the longstanding history of concern for malignancy and 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 We will also obtain a CBC to evaluate electrolytes and renal function and a D-dimer to rule out pulmonary thrombosis or emboli in general. We will obtain a CT scan to evaluate for pulmonary emboli/thrombosis we will contact the hospital physician for additional evaluation treatment and care. I have reviewed the patient's previous medical records and laboratory values and have noted them here in the chart. Medical Records I reviewed the patient's medical records. Lab Data I reviewed the patient's lab results. 05/11/23 05:27 05/11/23 05:27 Labs/Radiology: Radiology Impressions Chest CT 05/08/23 12:55 IMPRESSION: 1. Bulky a mass lesions in the right shoulder area consistent with tumor. 2. Multiple masses and lung nodules in the lower lobes consistent with tumor. 3. Bony erosions of the proximal right humerus by masses in the right shoulder 4. Heavy coronary artery calcifications. 5. Pneumobilia and cholecystectomy 6. Severe osteoarthritis dorsal spine 7. Pamela umbilical ventral hernia 8. Atrophic right kidney . 9. Bariatric surgery in the stomach Venous Duplex 05/08/23 12:57 IMPRESSION: No sonographic evidence of deep vein thrombosis. Chest X-Ray 05/11/23 16:30 IMPRESSION: 1. Tip of the central venous catheter projects over the right atrium. 2. There are patchy opacities at the perihilar regions and lung bases most prominent along the posteromedial aspect of the right lower lobe. Laboratory Results WBC 21.4 10^3/uL (4.0-10.0) H 05/08/23 11:05 RBC 3.29 10^6/uL (4.1-5.3) L 05/08/23 11:05 Hgb 8.6 g/dL (11.7-16.6) L 05/08/23 11:05 Hct 29.1 % (42.0-52.0) L 05/08/23 11:05 MCV 88.4 fl (80-94) 05/08/23 11:05 MCH 26.1 pg (28.0-34.0) L 05/08/23 11:05 MCHC 29.6 g/dL (30.0-36.0) L 05/08/23 11:05 RDW 20.3 % (12.1-15.1) H 05/08/23 11:05 Plt Count 291 10^3/cmm (130-400) 05/08/23 11:05 MPV 10.6 fL (7.4-10.4) H 05/08/23 11:05 Neut % (Auto) 86.1 % 05/08/23 11:05 Lymph % (Auto) 2.3 % 05/08/23 11:05 [place] % (Auto) 7.1 % 05/08/23 11:05 Eos % (Auto) 0.0 % 05/08/23 11:05 Baso % (Auto) 0.2 % 05/08/23 11:05 Neut # (Auto) 18.43 10^3/uL (1.8-7.7) H 05/08/23 11:05 Lymph # (Auto) 0.5 10^3/uL (0.8-4.8) L 05/08/23 11:05 [place]erry # (Auto) 1.5 10^3/uL (0.2-0.9) H 05/08/23 11:05 Eos # (Auto) 0.0 10^3/uL (0.0-0.8) 05/08/23 11:05 Baso # (Auto) 0.0 10^3/uL (0.0-0.1) 05/08/23 11:05 Nucleated RBC % (auto) 0 % 05/08/23 11:05 Nucleated RBCs # 0.0 /100WBC 05/08/23 11:05 PT 18.40 SECONDS (12.1-14.9) H 05/08/23 11:05 INR 1.47 (0.8-1.2) H 05/08/23 11:05 D-Dimer 1.26 ug/mIFEU (0-0.59) H 05/08/23 11:05 Sodium 133 mmol/L (136-145) L 05/08/23 11:05 Potassium 5.5 mmol/L (3.5-5.1) H 05/08/23 11:05 Chloride 96 mmol/L (98-107) L 05/08/23 11:05 Carbon Dioxide 13 mmol/L (22-29) L 05/08/23 11:05 Anion Gap 29.5 (5-19) H 05/08/23 11:05 BUN 36 mg/dL (8-23) H 05/08/23 11:05 Creatinine 2.3 mg/dL (0.7-1.2) H 05/08/23 11:05 GFR Calculation Not Reportable 05/08/23 11:05 Glucose 87 mg/dL (65-115) 05/08/23 11:05 POC Glucose 83 mg/dL (70-110) 05/08/23 11:58 Calculated Osmolality 284 mOsm/kg (285-295) L 05/08/23 11:05 Lactic Acid 12.9 mmol/L (0.5-2.2) H* 05/08/23 11:05 Calcium 11.2 mg/dL (8.5-10.5) H 05/08/23 11:05 Iron 41 ug/dL (59-158) L 05/08/23 11:05 TIBC 167 mcg/dl 05/08/23 11:05 % Saturation 24.5 % (20-50) 05/08/23 11:05 Unsat Iron Binding 126 ug/dL (112-347) 05/08/23 11:05 Total Bilirubin 0.7 mg/dL (0.15-1.2) 05/08/23 11:05 AST 22 U/L (0-40) 05/08/23 11:05 ALT 10 U/L (0-41) 05/08/23 11:05 Alkaline Phosphatase 112 U/L (40-130) 05/08/23 11:05 Troponin T Baseline 54 ng/L (0-15) H 05/08/23 11:05 NT-Pro-B Natriuret Pep 1033 pg/mL (0-125) H 05/08/23 11:05 Total Protein 4.8 g/dL (6.6-8.7) L 05/08/23 11:05 Albumin 2.8 g/dL (3.5-5.2) L 05/08/23 11:05 Globulin 2.0 g/dL (1.3-4.6) 05/08/23 11:05 Vitamin B12 630 pg/mL (232-1245) 05/08/23 11:05 Procalcitonin 0.55 ng/mL (0-0.5) H 05/08/23 11:05 TSH 4.00 uIU/mL (0.27-4.20) 05/08/23 11:05 All radiology interpretation(s) finalized by discharge Discharge Plan Discharge Patient Disposition: Admitted As Inpatient Admit Provider: Iam Avelar Clinical Impression: Generalized malignancy Condition: Stable Discharge Diet: Diabetic Discharge Activity: Resume usual activity Coding Level of Care Code ED Mining 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
== END 2023-05-11 22:13 | disposition short-term general hospital (02) | DRG 683 ==
LOC: ER 10:49 → MEDSURG 14:04
PROVIDERS: Internal Medicine; Admitting Provider Student in an Organized Health Care Education/Training Program; Emergency Provider Internal Medicine; PCP Emergency Medicine Emergency Medical Services; Visit Provider Student in an Organized Health Care Education/Training Program
DX: E88.3 Tumor lysis syndrome (principal); C83.30 Diffuse large B-cell lymphoma, unspecified site; M84.521A Pathological fracture in neoplastic disease, right humerus, initial encounter for fracture; E87.20 Acidosis, unspecified; N17.9 Acute kidney failure, unspecified; I12.9 Hypertensive chronic kidney disease with stage 1 through stage 4 chronic kidney disease, or unspecified chronic kidney disease; E11.22 Type 2 diabetes mellitus with diabetic chronic kidney disease; N18.9 Chronic kidney disease, unspecified; E83.52 Hypercalcemia; N13.5 Crossing vessel and stricture of ureter without hydronephrosis; Z96.653 Presence of artificial knee joint, bilateral; Z85.828 Personal history of other malignant neoplasm of skin; M10.9 Gout, unspecified; N40.1 Benign prostatic hyperplasia with lower urinary tract symptoms; G47.33 Obstructive sleep apnea (adult) (pediatric); D63.1 Anemia in chronic kidney disease; E87.5 Hyperkalemia
CPT/HCPCS: 36415; 36416; 36430; 71045; 71250; 76937; 80048; 80053; 80061; 80306; 81001; 82274; 82310; 82607; 82746; 82962; 83036; 83540; 83550; 83605; 83615; 83735; 83880; 83970; 84100; 84145; 84443; 84484; 84550; 85007; 85014; 85018; 85025; 85027; 85362; 85378; 85384; 85610; 85730; 86403; 86850; 86900; 86920; 87040; 87077; 87186; 87205; 87449; 87486; 87581; 87633; 87641; 93005; 93306; 93970; 94640; 96365; 96375; 99285; J1644; J1815; J2430; J2543; J2783; J2930; J3370; J7030; J7040; J7614; J7626; J7644; P9016; P9046